=== PATIENT | male | born 1960 | race Caucasian/White ===

== ENCOUNTER → 2019-02-23 11:13 | Outpatient (CLI) | payer OTHER, SELFPAY ==
--- NOTE | 2019-02-23 | DI.MRI.S_ITS ---
PROCEDURE: MR LUMBAR SPINE WO CON INDICATIONS: LOW BACK PAIN. BILATERAL LEG RADICULAR PAIN TECHNIQUE: Noncontrast sagittal T1 spin echo and T2 fast echo, sagittal STIR, axial T1 and T2 fast spin echo through the lumbar spine. In cases with scoliosis, additional coronal T2 fast spin echo may be performed. COMPARISON: None. FINDINGS: Image quality: Excellent. Alignment and Curvature: There is grade 1 retrolisthesis of L1 on L2. Bone Marrow: Marrow is of normal overall signal. Chronic appearing mild anterior wedge compression deformity at L1 level is seen with up to 15-20% loss of L1 vertebral body height anteriorly. No acute vertebral body compression fractures. Spinal Cord: Conus medullaris terminates at the T12-L1 level. Visualized cord demonstrates normal signal and size. Paraspinous Soft Tissues: No paravertebral masses. L1-L2: Decreased intervertebral disc space and degenerative endplate changes are seen. There is diffuse disc bulge and bilateral facet arthrosis. Mild central canal stenosis and mild right-sided neuroforaminal narrowing is seen. L2-L3: There is decreased intervertebral disc space and degenerative endplate changes. Broad-based disc bulge and bilateral facet arthrosis is seen causing moderate central canal stenosis and mild right worse than left bilateral neuroforaminal narrowing. L3-L4: Degenerative endplate changes and decreased intervertebral disc space is seen. Broad-based disc bulge and bilateral facet arthrosis is noted with moderate central canal stenosis, severe left-sided neural foraminal narrowing and moderate right-sided neural foramina narrowing. There is likely compression of exiting left L3 nerve root. L4-L5: Broad-based disc bulge is seen with bilateral facet arthrosis and hypertrophy of ligamentum flavum. Mild to moderate central canal stenosis and left worse than right bilateral neuroforaminal narrowing is seen. There is likely mild compression of the exiting left L4 nerve root. L5-S1: Diffuse disc bulge and bilateral facet arthrosis is seen with mild central canal stenosis and mild left-sided neuroforaminal narrowing. There is mild compression of exiting left L5 nerve root. IMPRESSION: 1. Chronic appearing mild anterior wedge compression deformity at L1 level. No acute compression fracture. No marrow edema. Grade 1 retrolisthesis of L1 on L2. 2. Degenerative disc bulge and bilateral facet arthrosis throughout lumbar spine causing moderate to severe central canal stenosis and left worse than right bilateral neuroforaminal narrowing as described in detail above. Dictated by: Ricco Breaux M.D. on 02/23/2019 at 11:58 Approved by: Ricco Breaux M.D. on 02/23/2019 at 12:06
== END ==
PROVIDERS: PCP Family Medicine; Visit Provider Physician Assistant Surgical
DX: M54.5 Low back pain (principal); M79.605 Pain in left leg; M79.604 Pain in right leg; G95.29 Other cord compression; M47.816 Spondylosis without myelopathy or radiculopathy, lumbar region; M48.061 Spinal stenosis, lumbar region without neurogenic claudication; M48.07 Spinal stenosis, lumbosacral region
CPT/HCPCS: 72148

== ENCOUNTER 2019-11-04 21:36 | Inpatient (IN) | payer OTHER, SELFPAY ==
[2019-11-04 21:36] VITALS: BP 122/75; PULSE 109; RESP 28; TEMP 38.3; O2SAT 98; BMI 33.0
--- NOTE | 2019-11-04 21:50 | ED_ITS ---
HPI - Sepsis General Chief Complaint: Skin/Abscess/Foreign Body Mode of arrival: Ambulatory Source: patient Limitations: no limitations Evaluation Sepsis Infection Criteria Present: Suspected New Infection Associated Symptoms: fever, cough and shortness of breath Context: recent surgery/procedure Narrative: 59-year-old male former smoker with history of diabetes and hypertension presents with a chief complaint of 3 days of gradually worsening left lower extremity pain and swelling and now fever as high as 102, weakness and cough. Patient is nauseated but denies any vomiting. He has had no diarrhea or urinary complaints such as dysuria, frequency or urgency. He denies any recent travel. He had a prolonged hospitalization secondary to complications of a left hip surgery performed at the [facility]. He had hardware removed on August 10, 2019 in preparation for a planned L YVONNE. Patient started feeling pain at the end of July and presented to ED and had imaging which noted intertrochanteric femur fracture Review of Systems Constitutional Constitutional: Reports chills, Reports fatigue, Reports fever(s), Denies frequent falls, Denies lethargy and Denies weakness Eyes Eyes: Denies change in vision, Denies eye discharge, Denies irritation and Denies loss of vision ENT Ears, Nose, Mouth, and Throat: Denies change in voice, Denies dizziness, Denies neck pain, Denies sore throat and Denies throat swelling Cardiovascular Cardiovascular: Denies chest pain, Denies irregular heart rhythm, Denies lightheadedness, Denies palpitations, Reports dyspnea, Denies dyspnea on exertion and Denies orthopnea Respiratory Respiratory: Reports cough, Reports dyspnea, Denies dyspnea on exertion and Denies wheezing Gastrointestinal Gastrointestinal: Denies abdominal pain, Denies change in bowel habits, Denies diarrhea, Denies nausea and Denies vomiting Genitourinary Genitourinary: Denies hematuria, Denies flank pain, Denies urinary incontinence and Denies urinary urgency Musculoskeletal Musculoskeletal: Denies back pain, Denies muscle weakness, Denies neck pain, Denies numbness and Denies tingling Integumentary/Breasts Skin/Breast: Denies pruritus, Reports erythema, Denies rash, Reports skin pain, Reports skin swelling and Denies wounds Neurologic Neurologic: Denies behavioral changes, Denies confusion, Denies dizziness, Denies frequent falls, Denies loss of vision, Denies numbness, Denies tingling and Denies weakness Psychiatric Psychiatric: Denies anxiety, Denies behavioral changes, Denies confusion, Denies depression, Denies homicidal ideation and Denies suicidal ideation Endocrine Endocrine: Reports fatigue, Denies flushing and Denies palpitations Hematologic/Lymphatic Hematologic/Lymphatic: Denies easy bruising Allergic/Immunologic Allergic/Immunologic: Denies urticaria, Denies throat swelling and Denies wheezing Patient History Medical History Diabetes type 2, uncontrolled (Acute) Hemorrhoids (Acute) Hypertension (Acute) Left femoral shaft fracture (Acute) Surgical History History of hip replacement (Acute) History of open reduction and internal fixation (ORIF) procedure (Acute) Status post knee surgery Family History Father Congestive heart failure Mother Cancer Brother No significant medical problems Social History Smoking Status: Former smoker Smoking Status: Former smoker Exam Narrative Exam Narrative: GENERAL: [59] year old patient appears stated age. Well-nourish ed, well-developed patient, in moderate distress, clearly not feeling well, and pain anxious and tearful HEAD: Atraumatic. Normocephalic. EYES: Pupils equal round and reactive. Extraocular motions intact. No scleral icterus. No injection or drainage. ENT: Nose without bleeding, purulent drainage. Throat without erythema, tonsillar hypertrophy or exudate. Airway patent. NECK: Trachea midline. Non tender CARDIOVASCULAR: Tachycardic right rhythm without murmurs, gallops, or rubs. RESPIRATORY: Clear to auscultation. Breath sounds equal bilaterally. No wheezes, rales, or rhonchi. GASTROINTESTINAL: Abdomen soft, non-tender, nondistended. EXTREMITIES: Left lower extremity erythema and warmth, circumferential below the knee with what appears to be lymphangitis extending proximally along the medial thigh. Incision is clean, dry and intact. BACK: Nontender without deformity or crepitance. No flank tenderness. NEURO: AOx3. SKIN: No rash or erythema of visible areas other than that which is mentioned above Initial Vital Signs Initial Vital Signs: Vital Signs Temperature 101.0 F H 11/04/19 21:36 Pulse Rate 109 H 11/04/19 21:36 Respiratory Rate 28 H 11/04/19 21:36 Blood Pressure 122/75 11/04/19 21:36 Pulse Oximetry 98 11/04/19 21:36 Course Orders Ordered: ED Orders 11/04/19 21:51 US periph venous low extrem lt Stat XR chest 1V Stat 11/04/19 22:00 Blood Culture Stat C-Reactive Protein Quant Stat Complete Blood Count AUTO DIFF Stat Comprehensive Metabolic Panel Stat D Dimer Stat Erythrocyte Sedimentation Rate Stat Ferritin Stat Lactate (Lactic Acid) Stat Lactate Dehydrogenase Stat NT-proBNP (BNP-Adult 18+) Stat Procalcitonin Stat Troponin & CK Cardiac Panel Stat 11/04/19 23:07 CT angio chest PE protocol Stat 11/04/19 23:26 CT abdomen pelvis w con Stat 11/05/19 EC echo doppler complete Routine 11/05/19 00:28 EKG-12 Lead Stat 11/05/19 00:35 UA Complete [Urinalysis and Microscopic] Stat 11/05/19 00:37 Magnesium Routine 11/05/19 00:42 Prothrombin Time INR Routine 11/05/19 00:44 Consult to Dietitian, Adult Routine Consult to Occupational Therapy Evaluate & Treat 11/05/19 00:47 Consult to Physical Therapy Evaluate & Treat 11/05/19 00:51 Consult to Respiratory Therapy Evaluate & Treat 11/05/19 00:52 Partial Thromboplastin Time Routine 11/05/19 05:00 Basic Metabolic Panel Routine Complete Blood Count AUTO DIFF Routine Acetaminophen (Tylenol) 650 mg PO Q6HR PRN PRN Reason: Fever/Mild Pain (1-3) Bisacodyl (Dulcolax) 10 mg PO DAILY PRN PRN Reason: Constipation Dextrose (D50w) 25 gm IV PRN PRN; Protocol PRN Reason: Hypoglycemia Enoxaparin Sodium (Lovenox) 105 mg 1 mg/kg (105 mg) SUBCUT NOW ONE Stop: 11/05/19 11:01 Levofloxacin (Levaquin) 750 mg in 150 mls @ 100 mls/hr IV NOW KAREN Last Infusion: 11/05/19 00:12 Dose: 0 mls/hr Documented by: Admin: 11/04/19 22:03 Dose: 100 mls/hr Documented by: HOLLY Sodium Chloride (Normal Saline 0.9%) 1,000 mls @ 50 mls/hr IV CONT KAREN Levofloxacin (Levaquin) 750 mg in 150 mls @ 100 mls/hr IV Q24H KAREN Vancomycin HCl/Dextrose (Vancomycin) 2,000 mg in 400 mls @ 200 mls/hr IV Q12H KAREN Insulin Aspart (Novolog Flexpen) 0 unit SUBCUT ACHS KAREN; Protocol Naloxone HCl (Narcan) 0.2 mg IV Q2MIN PRN PRN Reason: Opiate Reversal Ondansetron HCl (Zofran) 4 mg IV Q8HR PRN PRN Reason: Nausea And Vomiting Discontinued Medications Enoxaparin Sodium (Lovenox) 105 mg 1 mg/kg (105 mg) SUBCUT NOW ONE Stop: 11/05/19 00:07 Last Admin: 11/05/19 00:49 Dose: 105 mg Documented by: HOLLY Lactated Ringer's (Lactated Ringers) 3,135 mls @ 1,045 mls/hr 30 ml/kg infuse over 3 hr (3135 ml) IV NOW ONE Stop: 11/05/19 00:50 Last Admin: 11/04/19 22:01 Dose: 1,045 mls/hr Documented by: HOLLY Vancomycin HCl/Dextrose (Vancomycin) 2,000 mg in 400 mls @ 200 mls/hr IV NOW ONE Stop: 11/04/19 23:53 Last Admin: 11/05/19 00:13 Dose: 200 mls/hr Documented by: HOLLY Vancomycin HCl (Vancomycin Per Pharmacy) 1 request MISC NOW ONE Stop: 11/05/19 00:54 Vital Signs Vital signs: Vital Signs - 8 hr 11/04/19 21:36 11/04/19 22:40 11/05/19 00:21 Temperature 101.0 F H Pulse Rate 109 H 104 H 108 H Respiratory Rate 28 H 24 26 H Blood Pressure 122/75 Blood Pressure [Right Arm] 157/85 H 171/84 H Pulse Oximetry 98 96 98 MDM - Sepsis Differential Diagnosis Current stage of sepsis: sepsis Possible source sepsis: skin/soft tissue Differential diagnosis: acute pulmonary embolism Fluid responsiveness: fluid responsive Lab Data Result diagrams: 11/04/19 22:00 11/04/19 22:00 Labs: Lab Results 11/04/19 11/04/19 11/04/19 Range/Units 22:00 22:00 22:00 WBC 22.4 H (4.5-11.0) X10^3/uL RBC 4.33 L (4.5-5.9) X10^6/uL Hgb 12.9 L (13.5-17.5) g/dL Hct 37.5 L (41-53) % MCV 86.7 (80-100) fL MCH 29.7 (26-34) PG MCHC 34.3 (30-36) % RDW 12.7 (11.6-14.8) % Plt Count 317 (150-400) X10^3/uL Neut % (Auto) 91.5 H (50-75) % Lymph % (Auto) 4.7 L (25-40) % [place] % (Auto) 3.6 (3-14) % Eos % (Auto) 0.0 L (2-4) % Baso % (Auto) 0.2 (0-2) % Neut # (Auto) 42621 H (7885-3523) /uL Lymph # (Auto) 1100 (1974-2134) /uL [place] # (Auto) 800 (0-900) /uL Eos # (Auto) 0 (0-450) /uL Baso # (Auto) 0 (0-100) /uL ESR 31 H (0-15) MM/HR D-Dimer 860 H (<230) ng/mL Sodium (137-145) mmol/L Potassium (3.4-5.1) mmol/L Chloride (98-107) mmol/L Carbon Dioxide (22-32) mmol/L BUN (9-20) mg/dL Creatinine (0.66-1.25) mg/dL Estimated GFR (>60) mL/min BUN/Creatinine Ratio (6-22) Glucose (70-100) mg/dL Lactate (0.7-2.1) mmol/L Calcium (8.4-10.2) mg/dL Ferritin (18-464) ng/mL Total Bilirubin (0.2-1.3) mg/dL AST (17-59) IU/L ALT (<50) IU/L Alkaline Phosphatase (38-126) U/L Lactate Dehydrogenase (313-618) U/L Total Creatine Kinase (55-170) U/L CK-MB (CK-2) (<2.37) ng/mL CK-MB (CK-2) Rel Index (1.5-5.0) % Troponin I (0.01-0.034) ng/mL C-Reactive Protein (<1.0) mg/dL NT-Pro-B Natriuret Pep (<125) pg/mL Total Protein (6.3-8.2) g/dL Albumin (3.5-5.0) g/dL Globulin (1.7-4.1) g/dL Albumin/Globulin Ratio (1.0-2.8) Procalcitonin 0.36 (<0.5) ng/mL Urine Color Urine Appearance Urine pH (4.5-8.0) Ur Specific [place] (1.000-1.035) Urine Protein (Negative) Urine Glucose (UA) (Negative) g/dL Urine Ketones (NEGATIVE) Urine Occult Blood (Negative) Urine Nitrate (Negative) Urine Bilirubin (NEGATIVE) Urine Urobilinogen (0.2) E.U./dL Ur Leukocyte Esterase (NEGATIVE) Urine RBC (0-5/HPF) Urine WBC (0-5/HPF) Ur Squamous Epith Cells (0-5/HPF) Urine Bacteria (None) Ur Culture Indicated? 11/04/19 11/04/19 11/04/19 Range/Units 22:00 22:00 22:00 WBC (4.5-11.0) X10^3/uL RBC (4.5-5.9) X10^6/uL Hgb (13.5-17.5) g/dL Hct (41-53) % MCV (80-100) fL MCH (26-34) PG MCHC (30-36) % RDW (11.6-14.8) % Plt Count (150-400) X10^3/uL Neut % (Auto) (50-75) % Lymph % (Auto) (25-40) % [place] % (Auto) (3-14) % Eos % (Auto) (2-4) % Baso % (Auto) (0-2) % Neut # (Auto) (6427-6806) /uL Lymph # (Auto) (0961-7105) /uL [place] # (Auto) (0-900) /uL Eos # (Auto) (0-450) /uL Baso # (Auto) (0-100) /uL ESR (0-15) MM/HR D-Dimer (<230) ng/mL Sodium 129 L (137-145) mmol/L Potassium 4.7 (3.4-5.1) mmol/L Chloride 94 L (98-107) mmol/L Carbon Dioxide 24 (22-32) mmol/L BUN 14 (9-20) mg/dL Creatinine 0.76 (0.66-1.25) mg/dL Estimated GFR > 60.0 (>60) mL/min BUN/Creatinine Ratio 18.4 (6-22) Glucose 289 H (70-100) mg/dL Lactate 1.8 (0.7-2.1) mmol/L Calcium 9.1 (8.4-10.2) mg/dL Ferritin 172 (18-464) ng/mL Total Bilirubin 0.6 (0.2-1.3) mg/dL AST 22 (17-59) IU/L ALT 17 (<50) IU/L Alkaline Phosphatase 80 (38-126) U/L Lactate Dehydrogenase 393 (313-618) U/L Total Creatine Kinase 159 (55-170) U/L CK-MB (CK-2) 2.34 (<2.37) ng/mL CK-MB (CK-2) Rel Index 1.5 (1.5-5.0) % Troponin I 0.023 (0.01-0.034) ng/mL C-Reactive Protein 23.9 H (<1.0) mg/dL NT-Pro-B Natriuret Pep 1050 H (<125) pg/mL Total Protein 7.6 (6.3-8.2) g/dL Albumin 4.2 (3.5-5.0) g/dL Globulin 3.4 (1.7-4.1) g/dL Albumin/Globulin Ratio 1.2 (1.0-2.8) Procalcitonin (<0.5) ng/mL Urine Color Urine Appearance Urine pH (4.5-8.0) Ur Specific [place] (1.000-1.035) Urine Protein (Negative) Urine Glucose (UA) (Negative) g/dL Urine Ketones (NEGATIVE) Urine Occult Blood (Negative) Urine Nitrate (Negative) Urine Bilirubin (NEGATIVE) Urine Urobilinogen (0.2) E.U./dL Ur Leukocyte Esterase (NEGATIVE) Urine RBC (0-5/HPF) Urine WBC (0-5/HPF) Ur Squamous Epith Cells (0-5/HPF) Urine Bacteria (None) Ur Culture Indicated? 11/05/19 Range/Units 00:35 WBC (4.5-11.0) X10^3/uL RBC (4.5-5.9) X10^6/uL Hgb (13.5-17.5) g/dL Hct (41-53) % MCV (80-100) fL MCH (26-34) PG MCHC (30-36) % RDW (11.6-14.8) % Plt Count (150-400) X10^3/uL Neut % (Auto) (50-75) % Lymph % (Auto) (25-40) % [place] % (Auto) (3-14) % Eos % (Auto) (2-4) % Baso % (Auto) (0-2) % Neut # (Auto) (6250-7705) /uL Lymph # (Auto) (3929-1059) /uL [place] # (Auto) (0-900) /uL Eos # (Auto) (0-450) /uL Baso # (Auto) (0-100) /uL ESR (0-15) MM/HR D-Dimer (<230) ng/mL Sodium (137-145) mmol/L Potassium (3.4-5.1) mmol/L Chloride (98-107) mmol/L Carbon Dioxide (22-32) mmol/L BUN (9-20) mg/dL Creatinine (0.66-1.25) mg/dL Estimated GFR (>60) mL/min BUN/Creatinine Ratio (6-22) Glucose (70-100) mg/dL Lactate (0.7-2.1) mmol/L Calcium (8.4-10.2) mg/dL Ferritin (18-464) ng/mL Total Bilirubin (0.2-1.3) mg/dL AST (17-59) IU/L ALT (<50) IU/L Alkaline Phosphatase (38-126) U/L Lactate Dehydrogenase (313-618) U/L Total Creatine Kinase (55-170) U/L CK-MB (CK-2) (<2.37) ng/mL CK-MB (CK-2) Rel Index (1.5-5.0) % Troponin I (0.01-0.034) ng/mL C-Reactive Protein (<1.0) mg/dL NT-Pro-B Natriuret Pep (<125) pg/mL Total Protein (6.3-8.2) g/dL Albumin (3.5-5.0) g/dL Globulin (1.7-4.1) g/dL Albumin/Globulin Ratio (1.0-2.8) Procalcitonin (<0.5) ng/mL Urine Color Yellow Urine Appearance Clear Urine pH 7.5 (4.5-8.0) Ur Specific [place] 1.010 (1.000-1.035) Urine Protein 1+ H (Negative) Urine Glucose (UA) 1+ H (Negative) g/dL Urine Ketones Trace H (NEGATIVE) Urine Occult Blood Trace-lysed (Negative) Urine Nitrate Negative (Negative) Urine Bilirubin Negative (NEGATIVE) Urine Urobilinogen 0.2 (0.2) E.U./dL Ur Leukocyte Esterase Negative (NEGATIVE) Urine RBC None seen (0-5/HPF) Urine WBC None seen (0-5/HPF) Ur Squamous Epith Cells 0-1 /hpf (0-5/HPF) Urine Bacteria None seen (None) Ur Culture Indicated? Cult not indicated Imaging Data CT scan - chest: Radiologist's Impression: Acute R lower PE without strain CT scan - abdomen/pelvis: Radiologist's Impression: No acute findings ECG Data Attestation: I personally reviewed and interpreted this ECG as follows: Interpretation: Sinus tachycardia, no evidence of strain. NO ischemia or ectopy. [facility] Narrative Medical decision making narrative: 59M former smoker and diabetic with LLE pain, swelling, redness and hip surgery in August with SOB and fever. DVT ruled out, treated with sepsis protocol. PE suspected given tachycardia, dyspnea, recent surgery and elevated DDimer. No evidence of strain on imaging, EKG, or biochemically. Not hypoxic or hypotensive, not a candidate for thrombectomy. Patient admitted for ongoing treatment of PE and cellulitis with sepsis. Discharge Plan Departure Patient Disposition: Admitted As Inpatient Clinical Impression: Acute pulmonary embolism, Cellulitis, Sepsis Admit Date/Time: 11/05/19 00:47 Admit Provider: Giorgi Auguste
--- NOTE | 2019-11-04 21:51 | DI.RAD.S_ITS ---
PROCEDURE: XR CHEST 1V INDICATIONS: cough, SOB TECHNIQUE: One view of the chest was acquired. COMPARISON: [facility], CT, CT ANGIO CHEST PE PROTOCOL, 11/04/2019, 23:06. FINDINGS: Surgical changes and devices: None. Lungs and pleura: Lungs are clear. No pleural effusions or pneumothorax. Mediastinum: Mediastinal contours appear normal. Heart size is normal. Bones and chest wall: No suspicious bony lesions. Overlying soft tissues appear unremarkable. IMPRESSION: No acute cardiopulmonary disease process. Dictated by: Dunia Baker MD, PhD on 11/05/2019 at 7:59 Approved by: Dunia Baker MD, PhD on 11/05/2019 at 8:03
--- NOTE | 2019-11-04 21:51 | DI.US.S_ITS ---
PROCEDURE: US PERIPH VENOUS LOW EXTREM LT INDICATIONS: SEVERE PAIN, REDNESS TECHNIQUE: Real-time imaging, as well as color and pulse Doppler interrogation, were performed of the lower extremity deep veins from the inguinal ligament to the popliteal fossa. COMPARISON: None. FINDINGS: The common femoral, femoral and popliteal veins are normally compressible, and free of intraluminal thrombus. Color and pulse Doppler demonstrate normal phasic intraluminal flow. There is normal augmentation response to distal compression maneuver. IMPRESSION: No evidence of deep vein thrombosis involving the left lower extremity. Dictated by: Dunia Baker MD, PhD on 11/05/2019 at 7:56 Approved by: Dunia Baker MD, PhD on 11/05/2019 at 7:57
[2019-11-04] MEDS: LACTATED RINGERS 1045 ML IV (22:01)
[2019-11-04] MEDS: levoFLOXacin 750 MG/150 ML PIGGYBACK 100 MG IV (22:03)
[2019-11-04 22:36] LABS: Add Manual Diff / Slide Review NO; Basophils Absolute Auto 0 /uL (0-100); Basophils Percent Auto 0.2 % (0-2); Eosinophils Absolute Auto 0 /uL (0-450); Hematocrit 37.5 % (41-53); Hemoglobin 12.9 g/dL (13.5-17.5); Lymphocytes Absolute Auto 1100 /uL (1100-4500); Lymphocytes Percent Auto 4.7 % (25-40); Mean Corpuscular HGB Conc 34.3 % (30-36); Mean Corpuscular Hemoglobin 29.7 PG (26-34); Mean Corpuscular Volume 86.7 fL (80-100); Monocytes Absolute Auto 800 /uL (0-900); Monocytes Percent Auto 3.6 % (3-14); Neutrophils Absolute Auto 20500 /uL (1500-7000); Neutrophils Percent Auto 91.5 % (50-75); Platelet Count 317 X10^3/uL (150-400); Red Blood Cell Count 4.33 X10^6/uL (4.5-5.9); Red Cell Distribution Width 12.7 % (11.6-14.8); White Blood Cell Count 22.4 X10^3/uL (4.5-11.0)
--- NOTE | 2019-11-04 22:39 | PC.NURSE ---
[id number] US in room.
--- NOTE | 2019-11-04 22:39 | PC.NURSE ---
[id number] Lab here to draw 2nd blood culture
[2019-11-04 22:40] VITALS: BP 157/85; PULSE 104; RESP 24; O2SAT 96
[2019-11-04 22:41] LABS: D Dimer 860 ng/mL (<230)
[2019-11-04 22:42] LABS: Lactate (Lactic Acid) 1.8 mmol/L (0.7-2.1)
[2019-11-04 22:45] LABS: Alanine Aminotransferase 17 IU/L (<50); Albumin 4.2 g/dL (3.5-5.0); Albumin Globulin Ratio 1.2 (1.0-2.8); Alkaline Phosphatase 80 U/L (38-126); Aspartate Aminotransferase 22 IU/L (17-59); BUN Creatinine Ratio 18.4 (6-22); Bilirubin Total 0.6 mg/dL (0.2-1.3); Blood Urea Nitrogen 14 mg/dL (9-20); Calcium 9.1 mg/dL (8.4-10.2); Carbon Dioxide 24 mmol/L (22-32); Chloride 94 mmol/L (98-107); Estimated Glomerular Filt Rate > 60.0 mL/min (>60); Globulin 3.4 g/dL (1.7-4.1); Glucose 289 mg/dL (70-100); HEMOLYSIS < 15 (0-50); Lactate Dehydrogenase 393 U/L (313-618); Potassium 4.7 mmol/L (3.4-5.1); Sodium 129 mmol/L (137-145); Total Protein 7.6 g/dL (6.3-8.2)
--- NOTE | 2019-11-04 22:45 | PC.NURSE ---
IV antibiotics started at 221
[2019-11-04 22:54] LABS: Erythrocyte Sedimentation Rate 31 MM/HR (0-15)
[2019-11-04 22:56] LABS: C-Reactive Protein Quant 23.9 mg/dL (<1.0)
[2019-11-04 22:57] LABS: Procalcitonin 0.36 ng/mL (<0.5)
--- NOTE | 2019-11-04 23:07 | DI.CT.S_ITS ---
PROCEDURE: CT ANGIO CHEST PE PROTOCOL INDICATIONS: SOB, tachy, cough, critical DDimer, recent surgery TECHNIQUE: After the administration of intravenous contrast, 2 mm thick sections acquired from the pulmonary apices to the posterior costophrenic angles. 3-dimensional maximum intensity projection (MIP) coronal and sagittal reformats were then acquired through the thorax. For radiation dose reduction, the following was used: automated exposure control, adjustment of mA and/or kV according to patient size. COMPARISON: None. FINDINGS: Image quality: Excellent. Pulmonary arteries: Filling defect noted in right lower lobe segmental and subsegmental pulmonary artery. Lungs and pleura: Lungs are clear. No pleural effusions or pneumothorax. Central and peripheral airways are patent. Mediastinum: Heart size is normal, without pericardial effusion. Atherosclerotic calcifications noted in the coronary vasculature. No mediastinal or hilar adenopathy. Thoracic aorta is normal in caliber and enhancement. Esophagus is normal in caliber, without hiatal hernia. Bones and chest wall: No suspicious bony lesions. Ribs and thoracic spine appear intact throughout. Thyroid gland is within normal limits.. No axillary or supraclavicular adenopathy. Abdomen: 1.3 cm hypoattenuating lesion noted in the right lobe liver which may represent small cyst or hemangioma. Visualized upper abdominal solid organs otherwise appear normal in the early arterial phase of enhancement. IMPRESSION: 1. Abnormal study demonstrating right lower lobe pulmonary embolus. 2. Coronary vasculature atherosclerosis. Dictated by: Dunia Baker MD, PhD on 11/05/2019 at 8:06 Approved by: Dunia Baker MD, PhD on 11/05/2019 at 8:11
[2019-11-04 23:17] LABS: Ferritin 172 ng/mL (18-464)
--- NOTE | 2019-11-04 23:26 | DI.CT.S_ITS ---
PROCEDURE: CT ABDOMEN PELVIS W CON INDICATIONS: severe pain in lower pelvis / hips TECHNIQUE: After the administration of intravenous contrast, 5 mm thick sections acquired from the diaphragm to the symphysis. 5 mm coronal and sagittal reformats were acquired. For radiation dose reduction, the following was used: automated exposure control, adjustment of mA and/or kV according to patient size. COMPARISON: [facility], MR, MR LUMBAR SPINE WO CON, 02/23/2019, 12:17. FINDINGS: Image quality: Excellent. ABDOMEN: Lung bases: Lung bases are clear. Heart size is normal. Coronary artery calcifications are present. Solid organs: Mild hepatic steatosis. Scattered subcentimeter hepatic hypodensities, too small to characterize accurately however statistically small cysts or hemangiomas. Gallbladder negative. Biliary system is non dilated. Pancreas enhances normally. Spleen is normal in size and enhancement. No adrenal nodules. Presumed bilateral renal cysts although some of these are technically too small to characterize accurately. No hydronephrosis. Peritoneum and bowel: Dependent 1.2 cm focus in the fundus of the stomach on image 19/11 is indeterminate possibly debris although if clinically indicated, endoscopic confirmation could be considered to exclude soft tissue lesion (or repeat imaging). No definite bowel wall thickening No free fluid or air. Normal appendix. Nodes and vessels: Numerous shotty subcentimeter retroperitoneal lymph nodes, and left common iliac and left external iliac lymph nodes with prominent fatty hilum. Clinical significance is unknown. Some of these appear be present on the prior lumbar spine MRI dated 02/23/19 however the pelvic lymph nodes were not included on the prior study exam field of view. Aorta and inferior vena cava are normal in size. Scattered vascular calcifications seen in the aorta. Miscellaneous: No ventral hernias. PELVIS: Genitourinary: Bladder wall thickness is normal. Small bilateral fat-containing inguinal hernias, left larger than right. Status post left hip arthroplasty. The hardware appears grossly intact and expected postoperative alignment. Fatty infiltration and some atrophy of the proximal left thigh musculature. Bilateral hip subcutaneous edema. Diffuse lumbar spondylosis and facet arthropathy. No compression fracture seen. IMPRESSION: Numerous retroperitoneal and left pelvic enlarged lymph nodes with fatty hilum appearance, not mentioned in the preliminary study interpretation. This finding could be chronic although technically unknown acuity and clinical significance. Please correlate clinically. Possible focal debris within the dependent gastric fundus although please see discussion above. No acute abnormality identified Presumed hepatic and renal cysts Additional chronic and incidental findings as detailed above Dictated by: Brian Christian M.D. on 11/05/2019 at 8:19 Approved by: Brian Christian M.D. on 11/05/2019 at 8:31
--- NOTE | 2019-11-04 23:57 | PC.NURSE ---
patient attempted to use urinal in bed. unable to urinate laying down. Stood at edge of by with notable dyspnea and tachicardia, RR44, HR125. Pt recovered in a few minutes to baseline at 106HR, RR22
[2019-11-05] VITALS (11 sets, daily range): BP systolic 122–171; BP diastolic 66–91; PULSE 82–108; RESP 18–26; TEMP 36.5–38.1; O2SAT 96–99; BMI 33.0
--- NOTE | 2019-11-05 | DI.ECHO.S_ITS ---
[facility] +---------+ [facility] +---------+ : : [address] : : : : [id number] : : : : Phone: [phone] Echocardiogram Report + + :Name: MALI WOMACK Study Date: 11/05/2019 Height: 70 in : :[facility] Weight: 232 lb : : Gender: Other BSA: 2.2 m2 : :: 1960 Age: 59 yrs BP: 140/73 mmHg: :Reason For Study: Rule out Covid-19, Pulmonary Embolism : :Ordering Physician: [facility] : :Hospitalist Performed By: Leah Mansfield : :Referring: [facility] Hospitalist : + + Interpretation Summary 1) Mildly increased left ventricular thickness (concentric) with size and mildly reduced systolic function (EF 45-50%). 2) Normal right ventricular size and function. 3) No significant valvular abnormalities. 4) No prior Echo available for comparison. Procedure: A two-dimensional transthoracic echocardiogram with color flow and Doppler was performed. The study quality was technically adequate. There is no prior echocardiogram noted for this patient. The patient was in sinus tachycardia with heart rates between 90-115 bpm during the exam. Left Ventricle: The left ventricle is normal in size. Left ventricular wall thickness is mildly increased. The ejection fraction is estimated to be 45- 50%. Left ventricular systolic function is mildly reduced. There is mild global hypokinesis of the left ventricle. Right Ventricle: The right ventricle is normal in size and function. Atria: The left atrium is borderline dilated. The right atrium is normal in size. There is no Doppler evidence for an interatrial shunt. Mitral Valve: The mitral valve leaflets appear mildly thickened, but open well. There is mild mitral annular calcification. There is trace mitral regurgitation. Aortic Valve: The aortic valve is trileaflet. The aortic valve opens well. There is no aortic valve stenosis. No aortic regurgitation is present. Tricuspid Valve: The tricuspid valve is normal in structure and function. There is a trace or physiologic amount of tricuspid regurgitation. Pulmonary artery pressures cannot be estimated because of the lack of a measurable TR jet velocity. Pulmonic Valve: The pulmonic valve is not well seen, but is grossly normal. There is mild pulmonic regurgitation. Great Vessels: The aortic root is normal size. The ascending aorta is at the upper limits of normal in size. The aortic arch is mildly enlarged. The IVC is of normal diameter and collapses less than 50% with a sniff. This suggests a right atrial pressure of 8 mm Hg. Pericardium/ Pleura There is no pericardial effusion. There is no pleural effusion. MMode/2D Measurements & Calculations LVIDd: 5.5 cm LVOT diam: 2.4 cm LVIDs: 4.1 cm Ao root diam: 3.4 cm FS: 26.2 % asc Aorta Diam: 3.5 cm EPSS: 1.4 cm Ao Arch Diam (Prox Trans): 3.9 cm IVSd: 1.2 cm LVPWd: 1.2 cm LV chowdhury. diameter/BSA (cm/m^2): 2.5 LV sys. diameter/BSA (cm/m^2): 1.8 LA A2 area: 22.7 cm2 RA long axis: 4.8 cm LA A4 area: 20.5 cm2 RA area: 18.2 cm2 LA length (vol): 5.3 cm RA vol: 59.1 ml LA vol: 74.6 ml RA : 26.6 ml/m2 LA vol index: 33.6 ml/m2 RVD1 (basal): 3.8 cm TAPSE: 2.5 cm Doppler Measurements & Calculations Ao V2 max: 167.5 cm/sec LVOT Max Toribio: 103.4 cm/sec Ao V2 mean: 116.6 cm/sec LV V1 max P.3 mmHg Ao max P.2 mmHg LV V1 VTI: 20.6 cm Ao mean P.3 mmHg TOM(I,D): 3.3 cm2 Ao V2 VTI: 28.2 cm TOM(V,D): 2.8 cm2 sev ratio: 0.73 TOM indexed to BSA (cm^2/m^2): 1.5 MV E max toribio: 101.2 cm/sec PA V2 max: 103.4 cm/sec MV A max toribio: 99.7 cm/sec PA V2 mean: 73.3 cm/sec MV E/A: 1.0 PA mean P.4 mmHg Med Peak E' Toribio: 8.7 cm/sec PA pr(Accel): 58.4 mmHg E/E' med: 11.6 Lat Peak E' Toribio: 13.5 cm/sec E/E' lat: 7.5 E/e' average: 9.6 MV dec time: 0.20 sec SV(LVOT): 93.0 ml Reading Physician:12:22 PM
[2019-11-05 00:08] LABS: Creatine Kinase 159 U/L (55-170)
[2019-11-05] MEDS: VANCOMYCIN 2,000 MG/400 ML PIGGYBACK 200 MG IV (00:13)
[2019-11-05 00:21] LABS: NT-proBNP (BNP-Adult 18+) 1050 pg/mL (<125); Troponin I 0.023 ng/mL (0.01-0.034)
[2019-11-05 00:23] LABS: CKMB % Relative Index 1.5 % (1.5-5.0); Creatine Kinase MB 2.34 ng/mL (<2.37)
--- NOTE | 2019-11-05 00:37 | PC.NURSE ---
tolerated catheter placment well. states he feel better minutes after placment for urinairy retention.
[2019-11-05 00:39] LABS: Bacteria Urine None Seen; RBC Urine None Seen (0-5/HPF); WBC Urine None Seen (0-5/HPF)
[2019-11-05 00:41] LABS: Appearance Urine UA CLEAR; Bilirubin Urine UA NEGATIVE (NEGATIVE); Color Urine UA YELLOW; Glucose Urine UA 1+ g/dL (Negative); Ketones Urine UA TRACE (NEGATIVE); Leukocyte Esterase Urine UA NEGATIVE (NEGATIVE); Nitrite Urine UA NEGATIVE (Negative); Occult Blood Urine UA TRACE-LYSED (Negative); Protein Urine UA 1+ (Negative); Urobilinogen Urine UA 0.2 E.U./dL (0.2); pH Urine UA 7.5 (4.5-8.0)
[2019-11-05 00:47] LABS: Culture Indicated Urine Cult Not Indicated; Squamous Epithelial Cell Urine 0-1 /HPF (0-5/HPF)
[2019-11-05] MEDS: ENOXAPARIN 100 MG/ML SYRINGE 105 MG SUBCUT (00:49)
--- NOTE | 2019-11-05 00:56 | P.HP_ITS ---
History of Present Illness History of Present Illness Date Patient Seen: 11/05/19 Time Patient Seen: 01:45 Chief complaint: ankles swelling,can't walk/ cough,SOB,fever Narrative: Mr. Rom Finch is a 59-year-old male with a history significant for insulin-dependent diabetes type 2, hypertension, recent left hip surgery [facility]2019 who presents to the hospital with worsening left lower extremity pain. The patient develops redness swelling on the left lower leg that has been been progressive with redness and swelling for 3 days. The patient reports that since discharge from the hospital he had been worked with PT until October and since then he has been on his own with PT discontinued related to COVID-19 restrictions. Patient states he has been weight-bearing but could no longer do so for the last 3 days secondary to pain. During the same time the patient reports developing associated bifrontal headache, fevers, weakness, nausea without vomiting and cough. He reports no complaints of visual changes, dizziness dysphagia or dysarthria but has had nasal congestion but no sore throat. He complains of difficulty taking a deep breath related to abdominal distension which too has increased over 3 days. He states his last bowel movement was 2 days ago and was hard and difficult to pass. He reports no rectal bleeding. He indicates he has no difficulty urination and has not noticed an increase in frequency. He has been compliant with his diabetic medications and diet. Upon arrival to the ER the patient is found to be febrile 101.0?, tachycardic at 1:09 a.m., blood pressure 122/75, respiratory rate of 28 saturating 98% on room air. Patient undergoes imaging with a ultrasound of the left lower extremity which is negative for DVT. He further undergoes a CTA which finds acute segmental pulmonary emboli within the right lower lobe and no evidence of right ventricular strain. A CT of the abdomen and pelvis with contrast identifies small liver cysts, bilateral renal cysts, gallbladder in solid organs otherwise unremarkable, moderate stool without bowel obstruction, left hip arthroplasty with prominent plate and screw fixation of old left femur fracture, severe right hip degenerative changes. On laboratory analysis the patient is found have a white count of 22.4, hemoglobin of 12.9, hematocrit of 37.5 and platelets of 317. On chemistry has a sodium of 129 and chloride of 94, potassium of 4.7, BUN of 14 and creatinine of 0.76. His an elevated glucose of 289. His a total bilirubin of 0.6, AST of 22, ALT of 17 and alkaline phosphatase of 80. He has an LDH of 393. Has lactic acid of 1.8, procalcitonin of 0.36, CRP elevated at 23.9 and is he has are of 31. His D-dimer is 860. In the ER the patient is given sepsis bolus with lactated Ringer's at 30 mL/kilos. Is also administered Levaqu in 750 mg as well as vancomycin 2 g IV. He is anticoagulated with Lovenox 1 milligram/kilogram for 105 mg subcutaneously. The patient is admitted to the medicine service for sepsis related to cellulitis with secondary pulmonary emboli and hyperglycemia. Patient History Medical History (Updated 11/05/19 @ 02:37 by LO Ashford) Diabetes type 2, uncontrolled (Acute) Hemorrhoids (Acute) Hypertension (Acute) Surgical History (Updated 11/05/19 @ 02:37 by LO Ashford) History of hip replacement (Acute) History of hip surgery (Acute) Status post knee surgery Family & Social History Family History Father Congestive heart failure Mother Cancer Brother No significant medical problems Safety & Behavioral: Feels Safe in Current Yes Environment Been Physically Hurt or No Threatened By a Person Tobacco & Substance use: Smoking Status Former smoker alcohol intake frequency other Substance Use Type does not use Comment: Advanced directive: In direct discussion with the patient states his wish to be FULL CODE. He designates his brother Young to be his surrogate decision maker. Meds Home Medications and Allergies Home Medications Medication Instructions Recorded Confirmed Type amlodipine 5 mg PO DAILY 11/05/19 11/05/19 History glipizide 10 mg PO BID 11/05/19 11/05/19 History insulin glargine 18 units SUBCUT BID 11/05/19 11/05/19 History lisinopril 40 mg PO DAILY 11/05/19 11/05/19 History metformin 1,000 mg PO BID 11/05/19 11/05/19 History polyethylene glycol 3350 17 g PO BID PRN 11/05/19 11/05/19 History Allergies Allergy/AdvReac Type Severity Reaction Status Date / Time No Known Drug Allergies Allergy Verified 11/04/19 22:46 Review of Systems Review of Systems ROS: Yes All systems reviewed with the patient and are negative except as otherwise documented Exam Vital Signs (past 8 hours): - 11/04/19 21:36 11/04/19 22:40 11/05/19 00:21 Temperature 101.0 F H Pulse Rate 109 H 104 H 108 H Respiratory Rate 28 H 24 26 H Blood Pressure 122/75 Blood Pressure [Right Arm] 157/85 H 171/84 H Pulse Oximetry 98 96 98 Oxygen Delivery Method Room Air Narrative Exam Narrative: GENERAL APPEARANCE: well developed, obese male who anxious and tachypneic and moderate pain. HEENT: Normocephalic, PERRLA, conjunctiva clear, EOMs intact without nystagmus, no sinus tenderness to percussion, no rhinorrhea, mucous membranes are moist and pink without lesions or exudate. NECK/THYROID: neck supple, no JVD, no carotid bruit, no thyromegaly, trachea midline. LYMPH NODES: no cervical or supraclavicular lymphadenopathy. SKIN: [place], warm and dry, no visible lesions, redness swelling and warmth left lower leg from the foot to the knee with red streak to the thigh. HEART: regular rate and rhythm, S1-split S2, 1/6 systolic murmur, no rubs or gallops, brisk capillary refill, swelling of the left lower leg only. LUNGS: clear to auscultation bilaterally, no coarseness crackles or wheezing, no cough present CHEST: Symmetrical movement, no accessory muscle use, shallow tidal volume, no pain on AP and lateral compression. ABDOMEN: Firm, tympanic to percussion bilateral upper quadrants with distention, no tenderness, no guarding or peritoneal signs, no organomegaly, no flank or suprapubic tenderness, active bowel tones, indwelling Márquez catheter draining clear yellow urine. EXTREMITIES: moves all extremities, strength is 5/5 and symmetrical, no deformities or joint effusions. NEUROLOGIC: AAO x4, cranial nerves II-XII grossly intact, neuropathy left lower leg, hearing grossly normal to speech. PSYCH: Anxious and tearful, redirectable, cooperative. Objective Labs Result Diagrams: 11/04/19 22:00 11/04/19 22:00 Labs: Laboratory Results - last 24 hr 04/19/20 04/19/20 04/19/20 22:00 22:00 22:00 WBC 22.4 H RBC 4.33 L Hgb 12.9 L Hct 37.5 L MCV 86.7 MCH 29.7 MCHC 34.3 RDW 12.7 Plt Count 317 Neut % (Auto) 91.5 H Lymph % (Auto) 4.7 L [place] % (Auto) 3.6 Eos % (Auto) 0.0 L Baso % (Auto) 0.2 Neut # (Auto) 91258 H Lymph # (Auto) 1100 [place] # (Auto) 800 Eos # (Auto) 0 Baso # (Auto) 0 ESR 31 H D-Dimer 860 H Sodium Potassium Chloride Carbon Dioxide BUN Creatinine Estimated GFR BUN/Creatinine Ratio Glucose Lactate Calcium Ferritin Total Bilirubin AST ALT Alkaline Phosphatase Lactate Dehydrogenase Total Creatine Kinase CK-MB (CK-2) CK-MB (CK-2) Rel Index Troponin I C-Reactive Protein NT-Pro-B Natriuret Pep Total Protein Albumin Globulin Albumin/Globulin Ratio Procalcitonin 0.36 Urine Color Urine Appearance Urine pH Ur Specific [place] Urine Protein Urine Glucose (UA) Urine Ketones Urine Occult Blood Urine Nitrate Urine Bilirubin Urine Urobilinogen Ur Leukocyte Esterase Urine RBC Urine WBC Ur Squamous Epith Cells Urine Bacteria Ur Culture Indicated? 11/04/19 11/04/19 11/04/19 22:00 22:00 22:00 WBC RBC Hgb Hct MCV MCH MCHC RDW Plt Count Neut % (Auto) Lymph % (Auto) [place] % (Auto) Eos % (Auto) Baso % (Auto) Neut # (Auto) Lymph # (Auto) [place] # (Auto) Eos # (Auto) Baso # (Auto) ESR D-Dimer Sodium 129 L Potassium 4.7 Chloride 94 L Carbon Dioxide 24 BUN 14 Creatinine 0.76 Estimated GFR > 60.0 BUN/Creatinine Ratio 18.4 Glucose 289 H Lactate 1.8 Calcium 9.1 Ferritin 172 Total Bilirubin 0.6 AST 22 ALT 17 Alkaline Phosphatase 80 Lactate Dehydrogenase 393 Total Creatine Kinase 159 CK-MB (CK-2) 2.34 CK-MB (CK-2) Rel Index 1.5 Troponin I 0.023 C-Reactive Protein 23.9 H NT-Pro-B Natriuret Pep 1050 H Total Protein 7.6 Albumin 4.2 Globulin 3.4 Albumin/Globulin Ratio 1.2 Procalcitonin Urine Color Urine Appearance Urine pH Ur Specific [place] Urine Protein Urine Glucose (UA) Urine Ketones Urine Occult Blood Urine Nitrate Urine Bilirubin Urine Urobilinogen Ur Leukocyte Esterase Urine RBC Urine WBC Ur Squamous Epith Cells Urine Bacteria Ur Culture Indicated? 11/05/19 00:35 WBC RBC Hgb Hct MCV MCH MCHC RDW Plt Count Neut % (Auto) Lymph % (Auto) [place] % (Auto) Eos % (Auto) Baso % (Auto) Neut # (Auto) Lymph # (Auto) [place] # (Auto) Eos # (Auto) Baso # (Auto) ESR D-Dimer Sodium Potassium Chloride Carbon Dioxide BUN Creatinine Estimated GFR BUN/Creatinine Ratio Glucose Lactate Calcium Ferritin Total Bilirubin AST ALT Alkaline Phosphatase Lactate Dehydrogenase Total Creatine Kinase CK-MB (CK-2) CK-MB (CK-2) Rel Index Troponin I C-Reactive Protein NT-Pro-B Natriuret Pep Total Protein Albumin Globulin Albumin/Globulin Ratio Procalcitonin Urine Color Yellow Urine Appearance Clear Urine pH 7.5 Ur Specific [place] 1.010 Urine Protein 1+ H Urine Glucose (UA) 1+ H Urine Ketones Trace H Urine Occult Blood Trace-lysed Urine Nitrate Negative Urine Bilirubin Negative Urine Urobilinogen 0.2 Ur Leukocyte Esterase Negative Urine RBC None seen Urine WBC None seen Ur Squamous Epith Cells 0-1 /hpf Urine Bacteria None seen Ur Culture Indicated? Cult not indicated Assessment & Plan Assessment & Plan narrative: This is a 59-year-old male patient who presents to the ER with fevers and chills, shortness of breath and swelling and redness the left lower extremity. Patient is found to have cellulitis and pulmonary emboli and diabetes with hyperglycemia. 1. Sepsis without end-organ dysfunction, present on admission, active. -patient with positive septic indicators including leukocytosis at 22.4, elevated ESR at 31, elevated CRP of 23.9 within normal procalcitonin 0.36, lactic acid of 1.8, patient is Febrile at 101.0 ?, tachycardic at 109, and increased respiratory rate of 28 without hypoxemia. -patient also has history of diabetes type 2 not currently on medication within glucose upon arrival 289. -acute q SOFA score is 1 for tachycardia which may be a function both of PE as well as pain. -causes sepsis is left lower leg cellulitis treated as below. -patient is screen for COVID-19. 2. Cellulitis left lower extremity, acute, present on admission, active. -patient reports increasing pain swelling and redness of the left lower leg worsening over 3 days additionally stating he cannot ambulate on the leg. -ultrasound of the left lower extremity is negative for DVT with recent left hip and femur surgery. -patient with predominant redness from the ankle to the knee with faint red streak extending up medial thigh. -ordered vancomycin 2 g IV every 12 hours with pharmacy to dose, patient with BUN of 14 and creatinine of 0.79 with an estimated GFR greater than 60, creatinine clearance 156.3. First dose administered in the emergency department -ordered levofloxacin 750 mg IV every 24 hours. First dose administered in the emergency department. -will follow CBC and procalcitonin. 3. Pulmonary emboli, acute, present on admission, active. -patient with decreased mobility following [facility] and continued PT until October when it was discontinued secondary to COVID-19 pandemic. Patient has attempted to keep up exercises but has dec reased mobility related to pain for the last 3 days. -patient reports shortness of breast for 3 days with associated cough worse yesterday improved today. -positive D-dimer at 860, CTA finds segmental right lower lobe pulmonary emboli, provoked related to recent surgery of left leg and infection. -risk stratification: Stable vital signs with mild tachycardia at 1:08 a.m., No RV strain, troponin is 0.023, patient with elevated proBNP- 1050 pg/mL but has received large fluid bolus per sepsis protocol. Will obtain echocardiogram. -ordered Lovenox 105 mg subcutaneously twice daily. 4. Diabetes mellitus type 2, insulin dependent, uncontrolled, chronic, present on admission, active -blood glucose on admission labs is 289. Urinalysis significant for 1+ glucose 1+ protein and trace ketones. -patient states he has been compliant with his diabetic medications and diet, he denies excessive thirst or urination. -fingerstick blood sugars a.c. and HS, will cover with low range correctional insulin -continue insulin glargine 18 units twice daily. -will follow-up glycemic control and electrolytes on labs and adjust insulin regimen as needed. 5. Constipation with abdominal distension, acute on chronic, present on admission, active. -the patient complains of abdominal distension increasing over the last 3 days with last bowel movement 2 days ago that was hard and difficult to pass. -patient reports abdominal distension is painful makes it difficult to breathe. -CT of the abdomen pelvis finds significant stool burden. -ordered Doculax suppository x1 now, if no results fleets enema. -docusate ordered twice daily, MiraLax 17 g twice daily as needed and/or Dulcolax once daily as needed for constipation. 6. Hypertension, chronic, stable -blood pressure adequately controlled upon arrival to the ER with a blood pressure 122/75. -while in the ER the patient received sepsis bolus 30 mL/kilogram. IV fluid turn down to 50 cc/hour. -continue home medication regimen of amlodipine 5 mg daily and lisinopril 40 mg daily. 7. Debilitation, status post left hip and femur surgery. -the patient had a previous dynamic hip screw placement for a proximal femur fracture 10 years ago which is removed on August 10 in anticipation of total hip replacement. The patient had developed a nontraumatic intertrochanteric femoral fracture identified on 08/18/2019 him sensibly underwent a left total hip arthroplasty with a prophylactic lateral femoral plate fixation. -the patient had been discharged from the hospital on 08/31 with home physical therapy. This was discontinued in October related to COVID-19 restrictions. 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 -the patient attempted to continue exercise and was told he was allowed to weightbear but has been unable to weightbear on the left leg related to pain for the last several days. -patient complains of leg and back pain, ordered acetaminophen 650 mg every 4 hours as needed for mild pain and hydromorphone 0.5 mg IV for moderate pain. -request PT and OT to consult, evaluate and treat. 8. Urinary retention, acute, present on admission, active. -patient reports no difficulty with urination, frequency or urgency or hematuria. Urinalysis is negative for infection. -CT finds distended bladder, no notation made of enlarged prostate. Patient has been unable to void in the emergency department and Márquez catheter placed and is draining clear yellow urine. -will discontinue Márquez catheter, will reassess patient's urinary status and may consider starting tamsulosin. VTE prophylaxis: Right SCD, therapeutic Lovenox at 1 milligram/kilogram twice daily. IV fluid: Normal saline 50 cc/hour. Diet: Small constant carbohydrate diet. Code status: FULL CODE, the patient designates his brother Young to be his surrogate decision maker. The patient is admitted to the hospital for provoked PE in the setting of diabetic cellulitis with hyperglycemia. The patient is admitted as an inpatient with expected length of stay to be greater than 2 midnights. Scores GCS [place] coma scale eye opening: Spontaneous Rita coma scale verbal response: Orientated [place] coma scale motor response: Obey commands Rita coma scale total score: 15 Quality VTE Deep Vein Thrombosis/Pulmonary Embolism Present on Admission: No
[2019-11-05 01:02] LABS: INR 1.3 (0.9-1.3); Prothrombin Time 14.5 SECONDS (10.1-12.7)
[2019-11-05 01:07] LABS: Magnesium 1.6 mg/dL (1.6-2.3)
[2019-11-05 01:10] LABS: PTT Partial Thromboplastin Tim 30 SECONDS (26.4-36.2)
--- NOTE | 2019-11-05 01:27 | PC.NURSE ---
upon transfer received a verbal order from hanna lagunas to reduce LR rate to 50mls/hr. LR and Vanc to continue in acute care.
[2019-11-05] MEDS: HYDROMORPHONE 0.5 MG INJ IV (01:39)
[2019-11-05] MEDS: BISACODYL 10 MG SUPP PR (01:51)
[2019-11-05] MEDS: INSULIN GLARGINE 100 UNIT/ML 3ML PEN 18 UNIT SUBCUT ×3 (02:59→21:58)
[2019-11-05] MEDS: ACETAMINOPHEN 325 MG TABLET 650 MG PO ×2 (03:02→09:25)
--- NOTE | 2019-11-05 03:14 | PC.NURSE ---
Admitted to room 217, diagnosed with LLE Cellulitis & R/O COVID 19 on isolation. Showed how to use his call light, TV & bed controls. Instructed to call for any assistance & not to get OOB without any help. LIZ erythema outlined @ 0118, will monitor.
[2019-11-05 05:00] LABS: Adenovirus Not Detected (Not Detect); Bordetella pertussis Not Detected (Not Detect); Chlamydophila pneumoniae Not Detected (Not Detect); Coronavirus 229E Not Detected (Not Detect); Coronavirus HKU1 Not Detected (Not Detect); Coronavirus NL 63 Not Detected (Not Detect); Coronavirus OC43 Not Detected (Not Detect); Human Metapneumovirus Not Detected (Not Detect); Human Rhinovirus/Enterovirus Not Detected (Not Detect); Influenza A Not Detected (Not Detect); Influenza B Not Detected (Not Detect); Mycoplasma pneumoniae Not Detected (Not Detect); Parainfluenza Virus 1 Not Detected (Not Detect); Parainfluenza Virus 2 Not Detected (Not Detect); Parainfluenza Virus 3 Not Detected (Not Detect); Parainfluenza Virus 4 Not Detected (Not Detect); Respiratory Syncytial Virus Not Detected (Not Detect)
[2019-11-05] MEDS: MINERAL OIL 1 EACH ENEMA PR (05:42)
[2019-11-05 06:04] LABS: Add Manual Diff / Slide Review NO; Basophils Absolute Auto 100 /uL (0-100); Basophils Percent Auto 0.4 % (0-2); Eosinophils Absolute Auto 0 /uL (0-450); Eosinophils Percent Auto 0.1 % (2-4); Hemoglobin 12.8 g/dL (13.5-17.5); Lymphocytes Absolute Auto 1600 /uL (1100-4500); Lymphocytes Percent Auto 7.6 % (25-40); Mean Corpuscular HGB Conc 34.5 % (30-36); Mean Corpuscular Hemoglobin 29.7 PG (26-34); Mean Corpuscular Volume 85.9 fL (80-100); Monocytes Absolute Auto 900 /uL (0-900); Monocytes Percent Auto 4.4 % (3-14); Neutrophils Absolute Auto 18600 /uL (1500-7000); Neutrophils Percent Auto 87.5 % (50-75); Platelet Count 289 X10^3/uL (150-400); Red Blood Cell Count 4.31 X10^6/uL (4.5-5.9); White Blood Cell Count 21.2 X10^3/uL (4.5-11.0)
--- NOTE | 2019-11-05 06:07 | PC.NURSE ---
Yulisa ERNANDEZ'erika per hospitalist order & Enema admin. Instructed to call for assistance to BSC. Urinal at bedside table, call light within reach. Will monitor.
[2019-11-05 06:14] LABS: BUN Creatinine Ratio 19.7 (6-22); Blood Urea Nitrogen 13 mg/dL (9-20); Calcium 8.9 mg/dL (8.4-10.2); Carbon Dioxide 24 mmol/L (22-32); Chloride 98 mmol/L (98-107); Estimated Glomerular Filt Rate > 60.0 mL/min (>60); Glucose 123 mg/dL (70-100); HEMOLYSIS < 15 (0-50); Potassium 4.1 mmol/L (3.4-5.1); Sodium 131 mmol/L (137-145)
[2019-11-05 06:23] LABS: NT-proBNP (BNP-Adult 18+) 1040 pg/mL (<125)
[2019-11-05 06:30] LABS: Procalcitonin 0.31 ng/mL (<0.5)
[2019-11-05 08:07] LABS: Magnesium 1.9 mg/dL (1.6-2.3)
[2019-11-05] MEDS: DOCUSATE 100 MG CAPSULE 200 MG PO ×2 (09:03→21:57)
[2019-11-05] MEDS: CEFTRIAXONE 2 GM/50 ML FROZ.PIGGY IV (09:03)
[2019-11-05] MEDS: polyethylene glycoL 3350 17 GM POWD.PACK PO (09:06)
[2019-11-05] MEDS: lisinopriL 20 MG TABLET 40 MG PO (09:06)
[2019-11-05] MEDS: AMLODIPINE 5 MG TABLET PO (09:07)
[2019-11-05] MEDS: ENOXAPARIN 60 MG/0.6 ML SYRINGE 105 MG SUBCUT ×2 (09:24→21:58)
[2019-11-05] MEDS: SODIUM CHLORIDE 0.9% 1,000 ML 50 ML IV (09:24)
[2019-11-05] MEDS: VANCOMYCIN 1,500 MG/300 ML FROZ.PIGGY 200 MG IV ×2 (09:25→18:41)
[2019-11-05] MEDS: INSULIN ASPART 100 UNIT/ML INSULN PEN SUBCUT ×3 (09:29→16:44)
--- NOTE | 2019-11-05 10:43 | PC.NURSE ---
PT WITH INTERMITTENT DIAPHORESIS- AFEBRILE DROWSY BUT ORIENTED - DENIES NAUSEA AND TAKING ONLY LIQUIDS PER PT REQUEST-( HE DOESN'T HAVE HIS DENTURES) WILL ORDER DIET APPROPRIATELY- AM BLD GLU 136 AND COVERED WITH 1 UNIT HUMALOG WELL 18 UNITS LANTUS PER MD ORDER- SMALL BM PER BSC PRIOR TO SEWAGE SCREEN OPERATOR LEAVING- ABD REMAINS FIRM WITH ACTIVE BT'S - ALSO GIVEN MIRALAX AND PO COLACE- ABLE TO BE WEANED FROM 02 WITH SPO2 94-99% ON ROOM AIR- VANCO/ROCEPHIN FOR ANTIBIOTIC THERAPY- LUNGS DIMINISHED OTHERWISE CLEAR
--- NOTE | 2019-11-05 11:00 | PT.IIE ---
Surgical History (Last Updated 11/05/19 @ 02:37 by LO Ashford) History of hip replacement (Acute) History of hip surgery (Acute) Status post knee surgery Medical History (Last Updated 11/05/19 @ 02:37 by LO Ashford) Diabetes type 2, uncontrolled (Acute) Hemorrhoids (Acute) Hypertension (Acute) Physical Therapy Inpatient Evaluation/Re-Eval M1 PT/OT-IP Prior Functional Status Start: 11/05/19 11:21 Freq: NEEDED Status: Active Protocol: Document 11/05/19 11:21 [facility] (Rec: 11/05/19 11:59 [facility] [id number]) Medical Review Prior Functional Status Medical History Reviewed Yes Diet/Fluid Consistency Regular Communication WNL Mobility and Gait Pt amb with FWW, 4WW or crutches since surgyer on (L YVONNE w/lat femoral plate fixation). Prior to that did not use AD Activities of Daily Living and IADL's Indep with dressing and bathing overall but housemate stays by him while he is bathing to make sure he is safe. He does some of his own meals but housemate does some also and housemate does cleaning. Social History Household Members friend(s) Living Arrangements House Number of Floors (Floors) One Floor Number of Stairs To Enter/Railing? w/c ramp entry Home Environment High Toilet,Tub/Shower Home Equipment Front Wheel Walker,Four Wheel Walker,Crutches,Manual Wheelchair,Tub Transfer Bench, Long Handled Sponge,Long Handled Shoe Horn,Harness Cutter,Sock Aid,Grab Bars Near Toilet, Grab Bars In Shower M2 PT-IP Current Condition Start: 11/05/19 11:21 Freq: NEEDED Status: Active Protocol: Document 11/05/19 11:21 [facility] (Rec: 11/05/19 11:59 [facility] [id number]) Physical Therapy Current Condition Current Condition Evaluation Date 11/05/19 Treatment Diagnosis pulm ebolism, cellulits LLE, sepsis, difficulty walking Weight Bearing Status Weight Bearing Status Weight Bear as Tolerated M3 PT-IP Subjective Start: 11/05/19 11:21 Freq: NEEDED Status: Active Protocol: Document 11/05/19 11:21 [facility] (Rec: 11/05/19 11:59 [facility] [id number]) Subjective Physical Therapy Visit Type Type Initial Evaluation Visit Start Time 10:28 Visit Stop Time 11:00 Total Visit Minutes 32 Number of WIREWORKER Visits 0 Physical Therapy Visit Comments Patient Comments Pt agreeable to work with yazmin. Reports his abdomen has a lot of pressure Therapy Pain Assessment Pain When Pain Assessed During Mobility Pain Present Pain Present Pain Reported Location Left Leg Description Tightness Pain Management Techniques Re-positioning M4 PT-IP Mobility and Gait Start: 11/05/19 11:21 Freq: NEEDED Status: Active Protocol: Document 11/05/19 11:21 [facility] (Rec: 11/05/19 11:59 [facility] [id number]) PT-Bed Mobility Assessment Supine to Sit Supine to Sit Standby Assistance,Head of Bed Elevated,Bedrails Scooting Scooting to Edge of Bed Standby Assistance PT-Transfer Assessment Sit to and From Stand Sit to and from Stand Contact Guard Assistance,Use of Upper Extremities Equipment Transfer Assistive Device Gait Belt,Front Wheeled Walker Transfers Transfer Destination Chair Transfer Technique Stand Step Pivot Transfer Ability Level of Assist Contact Guard Assistance Comments Mobility Comments Pt did bed mobility with HOB elevated about 30 deg and with use of bed rails SBA and scooted to EOB SBA. He stood with difficulty with CGA and stood at FWW. He reproted tightness in his calf with standing. He stood fro about 1 min CGA while PROOF COINS INSPECTOR cleaned his buttocks d/t earlier enema. He then turned to transfer to chair with FWW and CGA and cueing for use of UE for decent to chair. He was adjusted and made comfortable until he reported he had to use the restroom and stood from chair CGA to FWW and amb to bathroom CGA with FWW then sat on toilet with heavy use of bars CGA. Pt left with PROOF COINS INSPECTOR on toilet. Gait Assessment Gait Gait Assistance Required: Contact Guard Assist Distance (Feet) 10 Able to Maintain Weight Bearing Status Yes During Gait Assistive Devices Assistive Device Gait Belt,Front Wheeled Walker Orthotic/Prosthetic Devices or Brace: No Gait Deviations General Gait Pattern Antalgic,Decreased Stride Length,Flexed Trunk Factors Limiting Gait Function Factors Limiting Gait Function Decreased Activity Tolerance, Decreased Strength,Limited Range of Motion,Pain,Poor Balance Comments Gait Comments see above PT-Balance Assessment Sitting Balance and Reactions Static Sitting Balance Ability Good Dynamic Sitting Balance Ability Good Standing Balance and Reactions Static Standing Balance Ability Fair Dynamic Standing Balance Ability Fair Device Used FWW M5 PT-IP Objective Assessments Start: 11/05/19 11:21 Freq: NEEDED Status: Active Protocol: Document 11/05/19 11:21 [facility] (Rec: 11/05/19 11:59 [facility] [id number]) Orientation Orientation/Cognition Level of Alertness Alert Language Function Ability No Deficits Noted Safety Awareness Decreased Safety Awareness Memory Description No Deficits Noted Strength Lower Extremity Strength Assessment Left Impaired M6 PT-IP Treatment Start: 11/05/19 11:21 Freq: NEEDED Status: Active Protocol: Document 11/05/19 11:21 [facility] (Rec: 11/05/19 11:59 [facility] [id number]) Physical Therapy Treatment Education Education Provided Safety M7 PT-IP Assessment and Plan Start: 11/05/19 11:21 Freq: NEEDED Status: Active Protocol: Document 11/05/19 11:21 [facility] (Rec: 11/05/19 11:59 [facility] [email or web address]) PT Summary Assessment and Plan Potential Rehabilitation Potential Good Status of Condition at Evaluation Evolving Summary Impairments Pain,ROM,Strength,Balance,Bed Mobility,Transfers,Gait, Activity Tolerance Assessment Summary Pt presents with sepsis, LLE cellultis & pulmunary edema, which limited his ability to ambulate. He reports the last few days his calf was too painful to walk. He did well with thearpy today and was able to walk short bout and move around with pain in calf and abdomen CGA. He is lieklyt o cont to progress in order to return home with assist from his housemate. He may possibly benefit from PT if cont to have issues with mobility. Goals Bed Mobility Goal Independent Transfer Goal Independent Gait Goal Independent Gait Distance 150ft Days to Meet Goals 6 Frequency of Treatment Frequency Of Treatment Once a Day Treatment Plan Physical Therapy Treatment Plan Bed Mobility Training,Transfer Training,Gait Training, Therapeutic Exercise,Balance Retraining,Discharge Planning, Neuromuscular Re-ed Other Recommendations and Next Treatment work on gait with FWW & work Focus on ability to do sit<>stand Recommendations To Nursing Amount of Assist Needed Standby Assistance Discharge Recommendations PT Discharge Recommendations Home with Assistance Transportation Needs at Discharge Private Vehicle
--- NOTE | 2019-11-05 11:13 | DIET.PN ---
Dietary Progress Note Assessment: Mr. Finch is a 59-year-old male with a history of insulin-dependent diabetes type 2, hypertension, recent left hip surgery (08/2019) who presents to the hospital with worsening left lower extremity pain. He complains of redness and swelling on the left lower leg that has been been progressive for 3 days. He reports working with PT until October when this was discontinued related to COVID-19 restrictions. Pt reports nausea with decrease in appetite and difficulty eating r/t bloated feeling. He also reports difficulty chewing related to poor dentition. He states he has not been able to reach anyone to bring his dentures. HT: 177.8cm WT: 105.5kg UBW: n/a BMI: 33.4 (obese class III) Labs: Hgb: 12.8 Hct: 37 Na: 131 Gluc: 289 (on arrival), 123 1+ glucose 1+ protein trace ketones MNA: 13 Maury: 19 Nutrition Diagnosis: Altered Nutrition related laboratory values related to impaired glucose metabolism, lack of previous exposure to accurate nutrition information as evidenced by pt report, dx of diabetes, hyperglycemia related to LLE swelling/ abscess. ? Interventions: 1. Discussed impact of nutrition/diet on blood sugar control.? 2. Discussed the effect of carbohydrates/protein/fat on blood sugar control.? Stressed importance of consistent carbohydrate intake at each meal and provided instructions for recommended servings/portions of carbohydrates/protein per meal. Provide pt with educational material. 3. Reviewed carbohydrate counting and measuring carbohydrate content via serving sizes and reading nutrition labels.? ? 4. Discussed the difference between simple versus complex carbohydrates and the effect of fiber on blood sugar control.? Discussed various methods to increase fiber content in diet. 5. Stressed importance of meal timing and not going >4-5 hours between meals. Encouraged adding protein to each meal to support glucose control. 6. Discussed healthy weight loss through diet and exercise to increase lean muscle mass when able to do so. 7. Discussed follow heart heathy, soft foods diet to ensure adequate PO intake until pt receives his dentures. 8. Recommend ONS glucerna BID for POs < 70%. ? Diet Order: CCD; recommend easy chew EER: 2200 keesha @ 30cal/kg IBW (weight loss); 130-145 g Pro @ 1.2-1.4 g/kg wound healing, increased risk for loss of LBM. Monitoring/Evaluations: weight, PO's, associated labs, diet tolerance
[2019-11-05] MEDS: SODIUM CHLORIDE 0.9% FLUSH 10 ML IV ×2 (12:19→21:44)
--- NOTE | 2019-11-05 13:01 | OT.IPNOTE ---
Pt asleep and awaken to try to do OT eval. Pt states too tired and that his abdomen is hurting due to just finished eating. Therefore, to attempt OT eval tomorrow.
--- NOTE | 2019-11-05 15:06 | CM.DANOTE ---
DCP/Assessment: Reviewed chart. Patient is 59yr old male admitted to [facility] for inability to walk. Patient with h/o diabetes. No PCP listed. Primary payor is [facility]. Patient currently COVID 19 pending. Therefore, PERFECT BINDER FEEDER OFFBEARER did not enter room. Spoke with RN/Shona whom reports that patient with PE, and cellulitis. She adds that patient has been very emotional today. Patient up in room with assist. Per H&P [facility]? Had HH up until October? Notified RN that CM team otr truck driver would touch base with patient and complete assessment for needs once COVID results return and are negative. P: CM team to follow closely. Patient most likely will have d/c planning needs. May be helpful to touch [facility] whether or not patient is case managed. JEREMIAH Dumont Discharge Planning/Care Management Discharge Assessment Start: 11/05/19 15:02 Freq: Status: Active Protocol: Document 11/05/19 15:03 [facility] (Rec: 11/05/19 15:05 [facility] [id number]) Discharge Planning Assessment Assigned Research Mechanic JEREMIAH Dumont Contact Information Young Finch (brother) Advance Directives? No Advance Directives on File No History Provided By Patient Prior Living Arrangements House Household Members friend(s) Type of transporation used prior to Drives own vehicle admit Willing to Return to Facility? No Independent with ADL's Unknown Is patient alert and oriented? COVID pending Caregiver for Another No Comment Unknown at this time Transportation Arrangement Unkown at this time Review Status In Process Next Review Type Continued Stay Review
--- NOTE | 2019-11-05 17:25 | PM.PN.1 ---
Subjective Subjective Date Patient Seen: 11/05/19 Interval history: Brief progress note: Patient seen and examined. Patient complains of left lower extremity and bilateral hip pain. Patient had asymptomatic brief run of nonsustained ventricular tachycardia. Physical exam unchanged. Left lower extremity cellulitis within margins but has not significantly retracted. Agree with admitting provider's assessment and plan. Plan to give potassium chloride 40 mEq IV x1 as potassium level is low normal at 3.4 and patient had nonsustained ventricular tachycardia as above. Switch levofloxacin to ceftriaxone and continue vancomycin with dosing per pharmacist. Continue conservative measures and elevate lower extremity above level of the heart frequently and for as often as tolerated. Exam Vital Signs (past 8 hours): - 11/05/19 13:08 11/05/19 13:55 11/05/19 16:42 Temperature 97.7 F 99.3 F Pulse Rate 101 H 88 82 Respiratory Rate 18 24 Blood Pressure 140/73 132/72 Pulse Oximetry 97 96 Oxygen Delivery Method Nasal Cannula Oxygen Flow Rate 0 Objective Labs Result Diagrams: 11/05/19 05:44 11/05/19 05:44 Labs: Laboratory Results - last 24 hr 11/04/19 11/04/19 11/04/19 22:00 22:00 22:00 WBC 22.4 H RBC 4.33 L Hgb 12.9 L Hct 37.5 L MCV 86.7 MCH 29.7 MCHC 34.3 RDW 12.7 Plt Count 317 Neut % (Auto) 91.5 H Lymph % (Auto) 4.7 L [place] % (Auto) 3.6 Eos % (Auto) 0.0 L Baso % (Auto) 0.2 Neut # (Auto) 64320 H Lymph # (Auto) 1100 [place] # (Auto) 800 Eos # (Auto) 0 Baso # (Auto) 0 ESR 31 H PT INR APTT D-Dimer 860 H Sodium Potassium Chloride Carbon Dioxide BUN Creatinine Estimated GFR BUN/Creatinine Ratio Glucose Lactate Calcium Magnesium Ferritin Total Bilirubin AST ALT Alkaline Phosphatase Lactate Dehydrogenase Total Creatine Kinase CK-MB (CK-2) CK-MB (CK-2) Rel Index Troponin I C-Reactive Protein NT-Pro-B Natriuret Pep Total Protein Albumin Globulin Albumin/Globulin Ratio Procalcitonin 0.36 Urine Color Urine Appearance Urine pH Ur Specific Potter Urine Protein Urine Glucose (UA) Urine Ketones Urine Occult Blood Urine Nitrate Urine Bilirubin Urine Urobilinogen Ur Leukocyte Esterase Urine RBC Urine WBC Ur Squamous Epith Cells Urine Bacteria Ur Culture Indicated? Chlamy pneumoniae PCR Adenovirus (PCR) B.parapertussis DNA PCR Coronavirus OC43 (PCR) Coronavirus HKU1 (PCR) Coronavirus 229E (PCR) Coronavirus NL63 (PCR) Human Metapneumovir PCR Influenza Type A (PCR) Influenza Type B (PCR) M. pneumoniae (PCR) Parainfluenza 1 (PCR) Parainfluenza 2 (PCR) Parainfluenza 3 (PCR) Parainfluenza 4 (PCR) RSV (PCR) Entero/Rhino (PCR) 11/04/19 11/04/19 11/04/19 22:00 22:00 22:00 WBC RBC Hgb Hct MCV MCH MCHC RDW Plt Count Neut % (Auto) Lymph % (Auto) [place] % (Auto) Eos % (Auto) Baso % (Auto) Neut # (Auto) Lymph # (Auto) [place] # (Auto) Eos # (Auto) Baso # (Auto) ESR PT INR APTT D-Dimer Sodium 129 L Potassium 4.7 Chloride 94 L Carbon Dioxide 24 BUN 14 Creatinine 0.76 Estimated GFR > 60.0 BUN/Creatinine Ratio 18.4 Glucose 289 H Lactate 1.8 Calcium 9.1 Magnesium Ferritin 172 Total Bilirubin 0.6 AST 22 ALT 17 Alkaline Phosphatase 80 Lactate Dehydrogenase 393 Total Creatine Kinase 159 CK-MB (CK-2) 2.34 CK-MB (CK-2) Rel Index 1.5 Troponin I 0.023 C-Reactive Protein 23.9 H NT-Pro-B Natriuret Pep 1050 H Total Protein 7.6 Albumin 4.2 Globulin 3.4 Albumin/Globulin Ratio 1.2 Procalcitonin Urine Color Urine Appearance Urine pH Ur Specific Potter Urine Protein Urine Glucose (UA) Urine Ketones Urine Occult Blood Urine Nitrate Urine Bilirubin Urine Urobilinogen Ur Leukocyte Esterase Urine RBC Urine WBC Ur Squamous Epith Cells Urine Bacteria Ur Culture Indicated? Chlamy pneumoniae PCR Adenovirus (PCR) B.parapertussis DNA PCR Coronavirus OC43 (PCR) Coronavirus HKU1 (PCR) Coronavirus 229E (PCR) Coronavirus NL63 (PCR) Human Metapneumovir PCR Influenza Type A (PCR) Influenza Type B (PCR) M. pneumoniae (PCR) Parainfluenza 1 (PCR) Parainfluenza 2 (PCR) Parainfluenza 3 (PCR) Parainfluenza 4 (PCR) RSV (PCR) Entero/Rhino (PCR) 11/04/19 11/04/19 11/04/19 22:00 22:00 22:00 WBC RBC Hgb Hct MCV MCH MCHC RDW Plt Count Neut % (Auto) Lymph % (Auto) [place] % (Auto) Eos % (Auto) Baso % (Auto) Neut # (Auto) Lymph # (Auto) [place] # (Auto) Eos # (Auto) Baso # (Auto) ESR PT 14.5 H INR 1.3 APTT 30 D-Dimer Sodium Potassium Chloride Carbon Dioxide BUN Creatinine Estimated GFR BUN/Creatinine Ratio Glucose Lactate Calcium Magnesium 1.6 Ferritin Total Bilirubin AST ALT Alkaline Phosphatase Lactate Dehydrogenase Total Creatine Kinase CK-MB (CK-2) CK-MB (CK-2) Rel Index Troponin I C-Reactive Protein NT-Pro-B Natriuret Pep Total Protein Albumin Globulin Albumin/Globulin Ratio Procalcitonin Urine Color Urine Appearance Urine pH Ur Specific [place] Urine Protein Urine Glucose (UA) Urine Ketones Urine Occult Blood Urine Nitrate Urine Bilirubin Urine Urobilinogen Ur Leukocyte Esterase Urine RBC Urine WBC Ur Squamous Epith Cells Urine Bacteria Ur Culture Indicated? Chlamy pneumoniae PCR Adenovirus (PCR) B.parapertussis DNA PCR Coronavirus OC43 (PCR) Coronavirus HKU1 (PCR) Coronavirus 229E (PCR) Coronavirus NL63 (PCR) Human Metapneumovir PCR Influenza Type A (PCR) Influenza Type B (PCR) M. pneumoniae (PCR) Parainfluenza 1 (PCR) Parainfluenza 2 (PCR) Parainfluenza 3 (PCR) Parainfluenza 4 (PCR) RSV (PCR) Entero/Rhino (PCR) 11/05/19 11/05/19 11/05/19 00:35 03:30 05:44 WBC 21.2 H RBC 4.31 L Hgb 12.8 L Hct 37.0 L MCV 85.9 MCH 29.7 MCHC 34.5 RDW 13.0 Plt Count 289 Neut % (Auto) 87.5 H Lymph % (Auto) 7.6 L [place] % (Auto) 4.4 Eos % (Auto) 0.1 L Baso % (Auto) 0.4 Neut # (Auto) 70005 H Lymph # (Auto) 1600 [place] # (Auto) 900 Eos # (Auto) 0 Baso # (Auto) 100 ESR PT INR APTT D-Dimer Sodium Potassium Chloride Carbon Dioxide BUN Creatinine Estimated GFR BUN/Creatinine Ratio Glucose Lactate Calcium Magnesium Ferritin Total Bilirubin AST ALT Alkaline Phosphatase Lactate Dehydrogenase Total Creatine Kinase CK-MB (CK-2) CK-MB (CK-2) Rel Index Troponin I C-Reactive Protein NT-Pro-B Natriuret Pep Total Protein Albumin Globulin Albumin/Globulin Ratio Procalcitonin Urine Color Yellow Urine Appearance Clear Urine pH 7.5 Ur Specific [place] 1.010 Urine Protein 1+ H Urine Glucose (UA) 1+ H Urine Ketones Trace H Urine Occult Blood Trace-lysed Urine Nitrate Negative Urine Bilirubin Negative Urine Urobilinogen 0.2 Ur Leukocyte Esterase Negative Urine RBC None seen Urine WBC None seen Ur Squamous Epith Cells 0-1 /hpf Urine Bacteria None seen Ur Culture Indicated? Cult not indicated Chlamy pneumoniae PCR Not detected Adenovirus (PCR) Not detected B.parapertussis DNA PCR Not detected Coronavirus OC43 (PCR) Not detected Coronavirus HKU1 (PCR) Not detected Coronavirus 229E (PCR) Not detected Coronavirus NL63 (PCR) Not detected Human Metapneumovir PCR Not detected Influenza Type A (PCR) Not detected Influenza Type B (PCR) Not detected M. pneumoniae (PCR) Not detected Parainfluenza 1 (PCR) Not detected Parainfluenza 2 (PCR) Not detected Parainfluenza 3 (PCR) Not detected Parainfluenza 4 (PCR) Not detected RSV (PCR) Not detected Entero/Rhino (PCR) Not detected 11/05/19 11/05/19 11/05/19 05:44 05:44 05:44 WBC RBC Hgb Hct MCV MCH MCHC RDW Plt Count Neut % (Auto) Lymph % (Auto) [place] % (Auto) Eos % (Auto) Baso % (Auto) Neut # (Auto) Lymph # (Auto) [place] # (Auto) Eos # (Auto) Baso # (Auto) ESR PT INR APTT D-Dimer Sodium 131 L Potassium 4.1 Chloride 98 Carbon Dioxide 24 BUN 13 Creatinine 0.66 Estimated GFR > 60.0 BUN/Creatinine Ratio 19.7 Glucose 123 H D Lactate Calcium 8.9 Magnesium Ferritin Total Bilirubin AST ALT Alkaline Phosphatase Lactate Dehydrogenase Total Creatine Kinase CK-MB (CK-2) CK-MB (CK-2) Rel Index Troponin I C-Reactive Protein NT-Pro-B Natriuret Pep 1040 H Total Protein Albumin Globulin Albumin/Globulin Ratio Procalcitonin 0.31 Urine Color Urine Appearance Urine pH Ur Specific [place] Urine Protein Urine Glucose (UA) Urine Ketones Urine Occult Blood Urine Nitrate Urine Bilirubin Urine Urobilinogen Ur Leukocyte Esterase Urine RBC Urine WBC Ur Squamous Epith Cells Urine Bacteria Ur Culture Indicated? Chlamy pneumoniae PCR Adenovirus (PCR) B.parapertussis DNA PCR Coronavirus OC43 (PCR) Coronavirus HKU1 (PCR) Coronavirus 229E (PCR) Coronavirus NL63 (PCR) Human Metapneumovir PCR Influenza Type A (PCR) Influenza Type B (PCR) M. pneumoniae (PCR) Parainfluenza 1 (PCR) Parainfluenza 2 (PCR) Parainfluenza 3 (PCR) Parainfluenza 4 (PCR) RSV (PCR) Entero/Rhino (PCR) 11/05/19 05:44 WBC RBC Hgb Hct MCV MCH MCHC RDW Plt Count Neut % (Auto) Lymph % (Auto) [place] % (Auto) Eos % (Auto) Baso % (Auto) Neut # (Auto) Lymph # (Auto) [place] # (Auto) Eos # (Auto) Baso # (Auto) ESR PT INR APTT D-Dimer Sodium Potassium Chloride Carbon Dioxide BUN Creatinine Estimated GFR BUN/Creatinine Ratio Glucose Lactate Calcium Magnesium 1.9 Ferritin Total Bilirubin AST ALT Alkaline Phosphatase Lactate Dehydrogenase Total Creatine Kinase CK-MB (CK-2) CK-MB (CK-2) Rel Index Troponin I C-Reactive Protein NT-Pro-B Natriuret Pep Total Protein Albumin Globulin Albumin/Globulin Ratio Procalcitonin Urine Color Urine Appearance Urine pH Ur Specific [place] Urine Protein Urine Glucose (UA) Urine Ketones Urine Occult Blood Urine Nitrate Urine Bilirubin Urine Urobilinogen Ur Leukocyte Esterase Urine RBC Urine WBC Ur Squamous Epith Cells Urine Bacteria Ur Culture Indicated? Chlamy pneumoniae PCR Adenovirus (PCR) B.parapertussis DNA PCR Coronavirus OC43 (PCR) Coronavirus HKU1 (PCR) Coronavirus 229E (PCR) Coronavirus NL63 (PCR) Human Metapneumovir PCR Influenza Type A (PCR) Influenza Type B (PCR) M. pneumoniae (PCR) Parainfluenza 1 (PCR) Parainfluenza 2 (PCR) Parainfluenza 3 (PCR) Parainfluenza 4 (PCR) RSV (PCR) Entero/Rhino (PCR) Quality VTE Deep Vein Thrombosis/Pulmonary Embolism Present on Admission: No
[2019-11-05 17:44] LABS: COVID19 Sendout Not Detected (Not Detect)
[2019-11-06] MEDS: VANCOMYCIN 1,500 MG/300 ML FROZ.PIGGY 150 MG IV ×3 (02:06→17:54)
[2019-11-06] MEDS: ACETAMINOPHEN 325 MG TABLET 650 MG PO ×2 (03:46→10:19)
[2019-11-06 05:38] LABS: Add Manual Diff / Slide Review NO; Basophils Absolute Auto 0 /uL (0-100); Basophils Percent Auto 0.3 % (0-2); Eosinophils Absolute Auto 0 /uL (0-450); Eosinophils Percent Auto 0.3 % (2-4); Hematocrit 37.6 % (41-53); Hemoglobin 13.2 g/dL (13.5-17.5); Lymphocytes Absolute Auto 1500 /uL (1100-4500); Lymphocytes Percent Auto 9.3 % (25-40); Mean Corpuscular HGB Conc 35.2 % (30-36); Mean Corpuscular Hemoglobin 30.5 PG (26-34); Mean Corpuscular Volume 86.6 fL (80-100); Monocytes Absolute Auto 800 /uL (0-900); Monocytes Percent Auto 5.1 % (3-14); Neutrophils Absolute Auto 14100 /uL (1500-7000); Platelet Count 276 X10^3/uL (150-400); Red Blood Cell Count 4.34 X10^6/uL (4.5-5.9); Red Cell Distribution Width 12.7 % (11.6-14.8); White Blood Cell Count 16.5 X10^3/uL (4.5-11.0)
[2019-11-06 05:40] VITALS: BP 161/78; PULSE 91; RESP 18; TEMP 36.4; O2SAT 97
[2019-11-06 06:02] LABS: BUN Creatinine Ratio 26.6 (6-22); Blood Urea Nitrogen 17 mg/dL (9-20); Calcium 8.6 mg/dL (8.4-10.2); Carbon Dioxide 22 mmol/L (22-32); Chloride 101 mmol/L (98-107); Estimated Glomerular Filt Rate > 60.0 mL/min (>60); Glucose 181 mg/dL (70-100); HEMOLYSIS < 15 (0-50); Potassium 4.1 mmol/L (3.4-5.1); Sodium 134 mmol/L (137-145)
[2019-11-06 06:19] LABS: Hemoglobin A1C% w Est Avg Glu 7.3 % (4.0-6.0)
[2019-11-06 06:57] LABS: TSH w/ Reflex to FT4 2.25 uIU/mL (0.47-4.68)
[2019-11-06 07:58] LABS: Procalcitonin 0.27 ng/mL (<0.5)
--- NOTE | 2019-11-06 07:59 | P.PN_ITS ---
Subjective Subjective Date Patient Seen: 11/06/19 Interval history: Rom Finch is a 59-year-old male with a past medical history significant for hypertension, diabetes mellitus type 2, insulin using, and recent [facility] who presented to the ED with worsening left lower extremity pain, erythema and edema. The patient is on bedside commode. He has significant emotional lability and appears depressed. He reports he was doing well before his leg infection and blood clot. He has no complaints other than pain of left lower extremity with ambulation and chronic constipation. He denies headache, cough, shortness of breath, chest pain, abdominal pain, nausea, vomiting, fever, chills, dysuria, or diarrhea. Informed him that he is negative for coronavirus in which he was elated. He is voiding without difficulty. He still endorses constipation but has had several BMs with implemented bowel regimen. He is up ambulating with assistance. Exam Vital Signs (past 8 hours): - 11/06/19 05:40 Temperature 97.6 F Pulse Rate 91 H Respiratory Rate 18 Blood Pressure 161/78 H Pulse Oximetry 97 Oxygen Delivery Method Room Air Oxygen Flow Rate 0 Narrative Exam Narrative: General: Middle-aged gentleman sitting on bedside commode, in no acute distress, well-developed, well-nourished, slightly disheveled, emotionally labile and significantly depressed. HEENT: Normocephalic, atraumatic. External ears without defect. Pupils equal, round, and reactive to light. Anicteric sclerae, moist conjunctivae, and no lid lag. Oropharynx free of erythema and cobble stoning with moist mucosa. Neck: Supple with full range of motion. No jugular venous distension. No lymphadenopathy or thyromegaly. Cardiovascular: Regular rate and rhythm without murmurs, rubs, or gallops appreciated. Pulmonary: Clear to auscultation bilaterally without crackles, wheezes, or rhonchi. Normal respiratory effort with no use of accessory muscles. Abdomen: Soft, bowel sounds present, nontender, mild distention. No hepatosplenomegaly or masses appreciated. Extremities: Erythema, mild edema and warmth of left lower extremity distally from left ankle to knee that is within the outlined margin without significant retraction. No clubbing, cyanosis, or edema of other extremities. Neurological: Cranial nerves grossly intact. Psychiatric: Severely depressed mood and affect. Emotionally labile. Alert and oriented to person, place, and time. Objective Labs Result Diagrams: 11/06/19 05:13 11/06/19 05:13 Labs: Laboratory Results - last 24 hr 11/04/19 11/05/19 11/06/19 22:00 05:44 05:13 WBC 16.5 H RBC 4.34 L Hgb 13.2 L Hct 37.6 L MCV 86.6 MCH 30.5 MCHC 35.2 RDW 12.7 Plt Count 276 Neut % (Auto) 85.0 H Lymph % (Auto) 9.3 L Laurens % (Auto) 5.1 Eos % (Auto) 0.3 L Baso % (Auto) 0.3 Neut # (Auto) 55535 H Lymph # (Auto) 1500 Laurens # (Auto) 800 Eos # (Auto) 0 Baso # (Auto) 0 Sodium Potassium Chloride Carbon Dioxide BUN Creatinine Estimated GFR BUN/Creatinine Ratio Glucose Hemoglobin A1c Calcium Magnesium 1.9 Procalcitonin TSH COVID-19 PCR Not detected 11/06/19 11/06/19 11/06/19 05:13 05:13 05:13 WBC RBC Hgb Hct MCV MCH MCHC RDW Plt Count Neut % (Auto) Lymph % (Auto) Laurens % (Auto) Eos % (Auto) Baso % (Auto) Neut # (Auto) Lymph # (Auto) Laurens # (Auto) Eos # (Auto) Baso # (Auto) Sodium 134 L Potassium 4.1 Chloride 101 Carbon Dioxide 22 BUN 17 Creatinine 0.64 L Estimated GFR > 60.0 BUN/Creatinine Ratio 26.6 H Glucose 181 H Hemoglobin A1c 7.3 H Calcium 8.6 Magnesium 2.0 Procalcitonin TSH 2.25 COVID-19 PCR 11/06/19 05:15 WBC RBC Hgb Hct MCV MCH MCHC RDW Plt Count Neut % (Auto) Lymph % (Auto) Laurens % (Auto) Eos % (Auto) Baso % (Auto) Neut # (Auto) Lymph # (Auto) Laurens # (Auto) Eos # (Auto) Baso # (Auto) Sodium Potassium Chloride Carbon Dioxide BUN Creatinine Estimated GFR BUN/Creatinine Ratio Glucose Hemoglobin A1c Calcium Magnesium Procalcitonin 0.27 TSH COVID-19 PCR Assessment & Plan Assessment & Plan narrative: Rom Finch is a 59-year-old male with a past medical history significant for hypertension, diabetes mellitus type 2, insulin using, and recent left hip replacement discharged from the [facility] on 08/31/2019 who presented to the ED with worsening left lower extremity pain, erythema and edema. 1. Acute sepsis ruled out. -Patient met SIRS criteria including: leukocytosis (WBC 22.4), elevated ESR at 31, elevated CRP of 23.9, febrile (temp 101.0?F), tachycardic (HR 109), tachyp gilbert (RR 28) without hypoxemia. Normal procalcitonin 0.36 and lactic acid of 1.8. No end-organ dysfunction. Infectious source cellulitis. qSOFA score is 1 for tachycardia which may be a function both of PE as well as pain. -Screened for COVID-19 which was negative and ruled out. 2. Acute cellulitis of left lower extremity, present on admission. Active. -Patient presented with progressive worsening pain, edema and erythema of the left lower extremity x 3 days to the extent that he was unable to ambulate. Of, patient recently had left hip left hip replacement and was doing well with rehabilitation. -Venous Doppler ultrasound was negative for DVT. -Initial WBC 22.4 and procalcitonin 0.36. WBC and procalcitonin trending down now 16.5 and 0.27 respectively. Continue to monitor WBC and procalcitonin daily. -Received vancomycin with dosing per pharmacist and levofloxacin 750 mg IV x1 in ED. Continue vancomycin with dosing per pharmacist and ceftriaxone 2 g IV daily. -Continue conservative measures and elevate extremity above the level of the heart frequently and for as long as tolerated. 3. Acute provoked right lower lobe pulmonary emboli, present on admission. Active. -Patient with decreased mobility following left hip replacement and was discharged from the [facility] on 08/31/2019. He continued PT until October when it was discontinued secondary to COVID-19 pandemic. Patient has attempted to keep up exercises but has decreased mobility related to pain for the last 3 days. -Patient reports shortness of breast for 3 days with associated cough worse yesterday improved today. -CTA chest demonstrated pulmonary emboli in right lower lobe segmental and subsegmental pulmonary artery. PE provoked related to recent surgery of left leg and infection. -Continue therapeutic Lovenox 105 mg subcutaneously twice daily. Plan to switch patient to NOAC prior to discharge. 4. Diabetes mellitus type 2, insulin using, uncontrolled, chronic, present on admission, active -Hemoglobin A1c 7.3% indicative of fair glycemic control. -Continue ACHS blood glucose checks and medium dose correction scale insulin. -Continue home Lantus increased from 18 units to 20 units twice daily for tig hter glycemic control. -Continue carbohydrate consistent/heart healthy diet. 5. Constipation with mild abdominal distension, acute on chronic, present on admission. Resolved. -Patient complains of abdominal distension increasing over the last 3 days with last bowel movement 2 days ago that was hard and difficult to pass. -CT abdomen and pelvis with contrast demonstrated significant stool burden. -Received Doculax suppository x1 and mineral oil enema with several BMs. Continue bowel regimen with Colace 100 mg twice daily and MiraLax 17 g daily. 6. Hypertension, chronic, present on admission. Stable. -Continue home amlodipine 5 mg daily and lisinopril 40 mg daily. 7. Recent left hip replacement, present on admission. Stable. -Patient had a previous dynamic hip screw placement for a proximal femur fracture 10 years ago which is removed on August 10 in anticipation of total hip replacement. The patient had developed a nontraumatic intertrochanteric femoral fracture identified on 08/18/2019 and underwent a left total hip arthroplasty with a prophylactic lateral femoral plate fixation. -Patient was discharged from the hospital on 08/31 with home physical therapy. This was discontinued in October related to COVID-19 restrictions. 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 -Patient attempted to continue exercise and was told he was allowed to weightbear but has been unable to weightbear on the left leg related to pain for the last several days. -Continue acetaminophen 650 mg every 4 hours as needed for mild pain. -Continue physical and occupational therapy evaluation and treatment. 8. Urinary retention, acute, present on admission, active. -Patient reports no difficulty with urination, frequency, urgency or hematuria. Urinalysis is negative for infection. -CT abdomen and pelvis with contrast demonstrated distended bladder and no notation made of enlarged prostate. Patient has been unable to void and a Márquez catheter was placed in the ED. Márquez catheter was later removed and patient has been able to void without difficulty. Code status: FULL CODE, the patient designates his brother Young to be his surrogate decision maker. VTE prophylaxis: Therapeutic Lovenox at 1 mg/kg twice daily Disposition: Patient likely to discharge in several days once cellulitis has improved. Quality VTE Deep Vein Thrombosis/Pulmonary Embolism Present on Admission: No
[2019-11-06 09:00] VITALS: BP 146/82; PULSE 100; RESP 18; TEMP 36; O2SAT 94
[2019-11-06] MEDS: INSULIN ASPART 100 UNIT/ML INSULN PEN SUBCUT ×3 (09:58→16:33)
[2019-11-06] MEDS: INSULIN GLARGINE 100 UNIT/ML 3ML PEN 18 UNIT SUBCUT (10:00)
--- NOTE | 2019-11-06 10:01 | OT.IP.EVAL ---
Past Medical History (Last Updated 11/05/19 @ 02:37 by LO Ashford) Diabetes type 2, uncontrolled (Acute) Hemorrhoids (Acute) Hypertension (Acute) Surgical History (Last Updated 11/05/19 @ 02:37 by LO Ashford) History of hip replacement (Acute) History of hip surgery (Acute) Status post knee surgery Occupational Therapy Inpatient Evaluation/Re-Eval M1 PT/OT-IP Prior Functional Status Start: 11/05/19 11:21 Freq: NEEDED Status: Active Protocol: Document 11/05/19 11:21 [facility] (Rec: 11/05/19 11:59 [facility] [id number]) Medical Review Prior Functional Status Medical History Reviewed Yes Diet/Fluid Consistency Regular Communication WNL Mobility and Gait Pt amb with FWW, 4WW or crutches since surgery on (L YVONNE w/lat femoral plate fixation). Prior to that did not use AD Activities of Daily Living and IADL's Indep with dressing and bathing overall but housemate stays by him while he is bathing to make sure he is safe. He does some of his own meals but housemate does some also and housemate does cleaning. Social History Household Members friend(s) Living Arrangements House Number of Floors (Floors) One Floor Number of Stairs To Enter/Railing? w/c ramp entry Home Environment High Toilet,Tub/Shower Home Equipment Front Wheel Walker,Four Wheel Walker,Crutches,Manual Wheelchair,Tub Transfer Bench, Long Handled Sponge,Long Handled Shoe Horn,Set Making Machine Operator,Sock Aid,Grab Bars Near Toilet, Grab Bars In Shower M1 PT/OT-IP Prior Functional Status Start: 11/06/19 10:03 Freq: NEEDED Status: Active Protocol: Document 11/06/19 10:03 [facility] (Rec: 11/06/19 10:22 [facility] [id number]) Medical Review Prior Functional Status Medical History Reviewed Yes Diet/Fluid Consistency Regular Communication WNL Mobility and Gait Pt amb with FWW, 4WW or crutches since surgery on (L YVONNE w/lat femoral plate fixation). Prior to that did not use AD Activities of Daily Living and IADL's Indep with dressing and MIN/ MODA for bathing ( assist to wash his back and legs ). He does some of his own meals but house mate does some also and house mate does cleaning. Social History Household Members friend(s) Living Arrangements House Number of Stairs To Enter/Railing? ramp to enter Home Environment High Toilet,Tub/Shower Home Equipment Front Wheel Walker,Four Wheel Walker,Crutches,Manual Wheelchair,Tub Transfer Bench, Long Handled Sponge,Long Handled Shoe Horn,Set Making Machine Operator,Sock Aid,Grab Bars Near Toilet, Grab Bars In Shower M2 OT-IP Current Condition Start: 11/06/19 10:03 Freq: Status: Active Protocol: Document 11/06/19 10:03 [facility] (Rec: 11/06/19 10:22 [facility] [id number]) Occupational Therapy Current Condition Current Condition Evaluation Date 11/06/19 Treatment Diagnosis LLE cellulitis Diagnosis Onset Date 11/05/19 Post Operative Precautions Posterior Hip Precautions No Hip Flexion > 90 degrees,No Hip Internal Rotation,No Hip Adduction Other Precautions Per pt due to left hip sx in August still needing to following hip precautions. Weight Bearing Status Weight Bearing Status Weight Bear as Tolerated M3 OT- IP Subjective and Pain Start: 11/06/19 10:03 Freq: Status: Active Protocol: Document 11/06/19 10:03 [facility] (Rec: 11/06/19 10:22 [facility] [id number]) OT- Subjective Occupational Therapy Visit Type Type Initial Evaluation Visit Start Time 09:10 Visit Stop Time 10:01 Total Visit Minutes 51 Occupational Therapy Visit Comments Patient Comments Pt a bit tearful and wanting to go home. Patient/Caregiver Goals To go home. OT Pain Assessment Pain When Pain Assessed During Mobility Pain Present Pain Present Pain Reported Location Left Leg Intensity 8 Scale Used Numeric (1 - 10) Description Throbbing M4 OT- IP ADL's Start: 11/06/19 10:03 Freq: Status: Active Protocol: Document 11/06/19 10:03 [facility] (Rec: 11/06/19 10:22 [facility] [id number]) OT [id number] Comments OT Self-Feeding Comments NOt at meal time. OT ADL-Grooming General Evaluation Grooming Ability Independent Comments OT Grooming Comments Able to do while sitting from chair to brush his teeth and able to stand to brush his hair. OT ADL-Oral Care General Eval Oral Care Ability Independent OT ADL-Dressing General Eval Lower Body Dressing Ability Moderate Assistance Areas Needing Assistance Underpants/Brief,Socks Comments OT Dressing Comments Pt needing assist to get brief over his feet and assist for socks due to hip precautions and pt getting tired form showering. OT ADL-Toileting Comments OT Toileting Comments Not performed. OT ADL-Bathing Bathing Type Bathing Type Shower General Evaluation Bathing Ability Moderate Assistance Areas Needing Assistance Wash/Dry Back,Wash/Dry Lower Extremities Devices Bathing Equipment Hand Held Shower Sprayer, Shower Chair with Arms,Grab Bars Comments OT Bathing Comments Pt able to stand for most of the shower and having to sit while therapist assist to wash his feet/legs. Pt states at home prior stands to shower and roommates assist with his back and feet. Pt does have a tub bench at home to use. M5 OT- IP IADL's Start: 11/06/19 10:03 Freq: Status: Active Protocol: Document 11/06/19 10:03 [facility] (Rec: 11/06/19 10:22 [id number] OT-Instrumental Activities of Daily Living Home Safety Awareness Awareness of Need for Assistance at Home Good Awareness Medication Management Medication Management No Deficits Identified Money Management Money Management No Deficits Identified Meal Preparation Meal Preparation Caregiver Provides Assist Enrichment Teacher Enrichment Teacher Caregiver Provides Assist Driving Driving Caregiver Provides Assist M6 OT- IP Functional Cognition Start: 11/06/19 10:03 Freq: Status: Active Protocol: Document 11/06/19 10:03 [facility] (Rec: 11/06/19 10:22 [facility] [id number]) Cognitive Factors Limiting Selfcare Function Cognitive Ability Level of Alertness Alert Patient Orientation Name,Month,Year,Day of Week, Place,Situation Attention Span Ability Capable of Focused Attention, Capable of Sustained Attention Ability to Follow Commands Able to Follow Multi-Step Commands Memory Description No Deficits Noted Safety Awareness Underestimates Need for Assistance Cognitive Comments Cognitive Assessment Comments Pt mainly needing encouragement during therapy as easily gets down on himself and for his situation and education pt to try to focus on the positives of his situation. Questionable as pt states in the past was able to do all of his own IV needs. OT- Vision and Hearing OT- Hearing Assessment OT- Hearing Assessment WFL OT- Vision Assessment Visual Acuity Glasses For Reading M7 OT- IP Mobility and Balance Start: 11/06/19 10:03 Freq: Status: Active Protocol: Document 11/06/19 10:03 [facility] (Rec: 11/06/19 10:22 [facility] [id number]) OT- Bed Mobility Assessment Supine to Sit Supine to Sit Assist Independent,Head of Bed Elevated Sit to Supine Sit to Supine Assist Independent,Head of Bed Elevated OT-Transfer Assessment Sit to and From Stand Sit to and from Stand Independent Transfers Transfer Ability Standby Assistance Technique Transfer Destination Bed,Shower Stall Transfer Technique Stand Step Pivot Devices Transfer Assistive Devices Gait Belt,Front Wheeled Walker Comments Mobility Comments Pt has a craftmatic bed at home and states usually get up with the HOB up. CLose SBA while pt able to step over the threshold of the shower with FWW. Otherwise distant supervision with FWW. OT- Gait Assessment Gait Gait Assistance Required: Standby Assistance Comments Gait Ability Comments SBA with FWW, pt insistent that he can walk without the FWW and was starting to at home. PT to assess safety without the FWW, for now due to his LLE pain best to use FWW at this time, OT- Balance Assessment Sitting Balance and Reactions Static Sitting Balance Ability Normal Dynamic Sitting Balance Ability Normal Standing Balance and Reactions Static Standing Balance Ability Good M8 OT- IP Objective Assessments Start: 11/06/19 10:03 Freq: Status: Active Protocol: Document 11/06/19 10:03 [facility] (Rec: 11/06/19 10:22 [facility] [id number]) OT Gross Range of Motion Upper Extremity Range of Motion Assessment Within Functional Limits OT Strength Upper Extremity Strength Assessment Within Functional Limits M9 OT- IP Assessment and Plan Start: 11/06/19 10:03 Freq: Status: Active Protocol: Document 11/06/19 10:03 [facility] (Rec: 11/06/19 10:22 [facility] [id number]) OT Summary Assessment and Plan Potential Rehabilitation Potential Good Analytic Complexity at Evaluation Low Summary OT Impairments Balance,Functional Mobility, Grooming,Dressing,Toileting, Toilet Transfers,Activity Tolerance Progress Towards Goals Progressing Toward Goals Assessment Summary Pt low complexity and main barrier for pt is pain from cellulitis and needing encouragement to stay positive. Pt able to tolerate a shower today and grooming needs and has roommates to be able to assist for any ADL's if needed . Pt may benefit from HH or outpt PT for mobility needs as pt has been trying to progress to walking without a FWW recently as had Left hip sx in August and per pt recent change to WBAT. Goals Grooming Goal Independent Dressing Goal Independent Toileting Goal Independent Bathing Goal Minimal Assistance Toilet Transfer Goal Independent Shower Transfer Goal Independent Days to Meet Goals 5 Frequency of Treatment Frequency Of Treatment Once a Day Treatment Plan OT Treatment Plan ADL Training,Functional Cognition Training,Functional Mobility,Patient/Family Education,Discharge Planning Other Treatment Recommendations and Next Stand at the sink to complete Treatment Focus all grooming needs. Discharge Recommendations OT Discharge Recommendations Home with Assistance,Home Health,Outpatient PT Home Equipment Needs Pt has all needs at home. Transportation Needs at Discharge Private Vehicle
[2019-11-06] MEDS: CEFTRIAXONE 2 GM/50 ML FROZ.PIGGY IV (10:07)
[2019-11-06] MEDS: AMLODIPINE 5 MG TABLET PO (10:08)
[2019-11-06] MEDS: lisinopriL 20 MG TABLET 40 MG PO (10:08)
[2019-11-06] MEDS: polyethylene glycoL 3350 17 GM POWD.PACK PO (10:08)
[2019-11-06] MEDS: DOCUSATE 100 MG CAPSULE 200 MG PO ×2 (10:08→21:13)
[2019-11-06] MEDS: ENOXAPARIN 60 MG/0.6 ML SYRINGE 105 MG SUBCUT ×2 (10:09→21:13)
[2019-11-06] MEDS: LACTULOSE 20 GM/30 ML SOLUTION 30 GM PO (10:15)
[2019-11-06] MEDS: VANCOMYCIN TROUGH 1 REQUEST MISC (10:20)
[2019-11-06 11:06] LABS: Vancomycin Trough 10.3 ug/mL (10-20)
[2019-11-06 13:00] VITALS: BP 113/70; PULSE 100; RESP 18; TEMP 36.6; O2SAT 95
--- NOTE | 2019-11-06 13:36 | PT.IPTN ---
Current Diagnoses Cellulitis of left lower limb (11/05/19) Physical Therapy Treatment Note M2 PT-IP Current Condition Start: 11/05/19 11:21 Freq: NEEDED Status: Active Protocol: Document 11/05/19 11:21 LR (Rec: 11/05/19 11:59 LR [email or web address]) Physical Therapy Current Condition Current Condition Evaluation Date 11/05/19 Treatment Diagnosis pulm ebolism, cellulits LLE, sepsis, difficulty walking Weight Bearing Status Weight Bearing Status Weight Bear as Tolerated M3 PT-IP Subjective Start: 11/05/19 11:21 Freq: NEEDED Status: Active Protocol: Document 11/06/19 12:15 HH (Rec: 11/06/19 13:36 HH [email or web address]) Subjective Physical Therapy Visit Type Type Treatment Note Visit Start Time 12:15 Visit Stop Time 12:36 Total Visit Minutes 21 Number of LONG TERM CARE PHLEBOTOMIST Visits 0 Physical Therapy Visit Comments Patient Comments Pt agreeable to work with thearpy. Reports his abdomen has a lot of pressure and less pain for his L calf. Therapy Pain Assessment Pain When Pain Assessed During Mobility Pain Present Pain Present Pain Reported M4 PT-IP Mobility and Gait Start: 11/05/19 11:21 Freq: NEEDED Status: Active Protocol: Document 11/06/19 12:15 HH (Rec: 11/06/19 13:36 HH [email or web address]) PT-Bed Mobility Assessment Supine to Sit Supine to Sit Standby Assistance,Head of Bed Elevated,Bedrails Scooting Scooting to Edge of Bed Standby Assistance PT-Transfer Assessment Sit to and From Stand Sit to and from Stand Contact Guard Assistance,Use of Upper Extremities Equipment Transfer Assistive Device Gait Belt,Front Wheeled Walker Transfers Transfer Destination Chair Transfer Technique Stand Step Pivot Transfer Ability Level of Assist Contact Guard Assistance Comments Mobility Comments Pt got up from supine with HOB elevated about 30 deg and used bed rails for push off. He scooted EOB afterwards anb able to stand up without AD by pushing off with UEs on bed CGA. Pt then used FWW to stabilize and stood for 30 secs. He amb to room wall and practiced calf stretch and he reports it feels better after stretch. Pt then given a SPC to amb out of the room. He was able to demonstrates reciprocal 2 point gait pattern with SPC on R UE. Pt cont to have slight decreased L step length and R weight shift d/t L calf pain but overall demonstrated safe and WFL gait.He amb half of AC unit and took 3 20 seconds break in between for rest and SpO2 at >95% HR 110s. Pt still has SOB but stated improved symptoms. He then amb back to his bedside chair with legs elevated and call light placed within reach. Gait Assessment Gait Gait Assistance Required: Contact Guard Assist Distance (Feet) 230 Able to Maintain Weight Bearing Status Yes During Gait Assistive Devices Assistive Device Gait Belt,Straight Cane Orthotic/Prosthetic Devices or Brace: No Gait Deviations General Gait Pattern Antalgic,Decreased Stride Length,Flexed Trunk Factors Limiting Gait Function Factors Limiting Gait Function Decreased Activity Tolerance, Decreased Strength,Limited Range of Motion,Pain,Poor Balance Comments Gait Comments see above M5 PT-IP Objective Assessments Start: 11/05/19 11:21 Freq: NEEDED Status: Active Protocol: Document 11/05/19 11:21 [facility] (Rec: 11/05/19 11:59 [facility] [email or web address]) Orientation Orientation/Cognition Level of Alertness Alert Language Function Ability No Deficits Noted Safety Awareness Decreased Safety Awareness Memory Description No Deficits Noted Strength Lower Extremity Strength Assessment Left Impaired M6 PT-IP Treatment Start: 11/05/19 11:21 Freq: NEEDED Status: Active Protocol: Document 11/05/19 11:21 [facility] (Rec: 11/05/19 11:59 [facility] [email or web address]) Physical Therapy Treatment Education Education Provided Safety M7 PT-IP Assessment and Plan Start: 11/05/19 11:21 Freq: NEEDED Status: Active Protocol: Document 11/06/19 12:15 HH (Rec: 11/06/19 13:36 [email or web address]) PT Summary Assessment and Plan Summary Impairments Pain,ROM,Strength,Balance,Bed Mobility,Transfers,Gait, Activity Tolerance Progress Towards Goals Slow Progress due to Pain Assessment Summary Pt showed improved amb distance with a SPC without O2 , along with reduced SOB and fatigue. SpO2 maintained at > 95% HR 110s. during session. His L calf is still warm to touch but improved pain threshold to pressure. Educated pt to cont practice ankle pumps and LE ex. Left pt in chair with legs elevated and call ligth placed within reach. Pt will benefit from d. c home with assistance and outpatient therapy to improve functional mobility and strength. Goals Bed Mobility Goal Independent Transfer Goal Independent Gait Goal Independent Gait Distance 150ft Days to Meet Goals 6 Frequency of Treatment Frequency Of Treatment Once a Day Treatment Plan Physical Therapy Treatment Plan Bed Mobility Training,Transfer Training,Gait Training, Therapeutic Exercise,Balance Retraining,Discharge Planning, Neuromuscular Re-ed Other Recommendations and Next Treatment check vitals, Focus work on gait with SPC/ w/o AD work on ability to do sit<> stand Recommendations To Nursing Amount of Assist Needed Standby Assistance Discharge Recommendations PT Discharge Recommendations Home with Assistance Transportation Needs at Discharge Private Vehicle
--- NOTE | 2019-11-06 14:48 | CM.DPC ---
DCP Cont: Called JEREMIAH Cornejo at [place] in [facility]. Confirmed that patient does have a primary care provider at that clinic named Dr. Campos. She mentioned that he has not seen his provider for 90 days. Confirmed that patient had worked with [facility] before. She stated that if patient needs [facility] again, should be covered, and can just get a face to face. Let her know that this case fitter would follow up with [facility] Called Robin at [facility]. He stated that patient was discharged from [facility] on 10/18. At that time he was getting P.T, and O.T. Stated that patient will need home health again, and would add nursing. Will fax over H&P for him to review. Will also have hospitalist sign a new face to face. P: DCP to continue to follow. Will fax H&P to [facility]. Kirstie Engel RN/Hand Stripper
[2019-11-06 15:49] VITALS: BP 129/76; PULSE 94; RESP 20; TEMP 36.1; O2SAT 95
[2019-11-06 20:48] VITALS: BP 130/73; PULSE 87; RESP 20; TEMP 37.1
[2019-11-06] MEDS: SODIUM CHLORIDE 0.9% FLUSH 10 ML IV (20:52)
[2019-11-06] MEDS: INSULIN GLARGINE 100 UNIT/ML 3ML PEN 20 UNIT SUBCUT (21:12)
[2019-11-06 23:55] VITALS: BP 121/85; PULSE 99; RESP 18; TEMP 37.8; O2SAT 97
[2019-11-07] MEDS: ACETAMINOPHEN 325 MG TABLET 650 MG PO ×4 (01:31→20:59)
[2019-11-07] MEDS: VANCOMYCIN 1,500 MG/300 ML FROZ.PIGGY 200 MG IV ×3 (01:31→17:29)
[2019-11-07 04:00] VITALS: BP 142/90; PULSE 76; RESP 18; TEMP 36.3; O2SAT 95
[2019-11-07 06:19] LABS: Add Manual Diff / Slide Review NO; Basophils Absolute Auto 100 /uL (0-100); Basophils Percent Auto 0.6 % (0-2); Eosinophils Absolute Auto 100 /uL (0-450); Eosinophils Percent Auto 1.3 % (2-4); Hematocrit 35.4 % (41-53); Hemoglobin 12.3 g/dL (13.5-17.5); Lymphocytes Absolute Auto 1700 /uL (1100-4500); Lymphocytes Percent Auto 14.6 % (25-40); Mean Corpuscular HGB Conc 34.9 % (30-36); Mean Corpuscular Hemoglobin 30.2 PG (26-34); Mean Corpuscular Volume 86.5 fL (80-100); Monocytes Absolute Auto 800 /uL (0-900); Monocytes Percent Auto 7.3 % (3-14); Neutrophils Absolute Auto 8800 /uL (1500-7000); Neutrophils Percent Auto 76.2 % (50-75); Platelet Count 313 X10^3/uL (150-400); Red Blood Cell Count 4.09 X10^6/uL (4.5-5.9); Red Cell Distribution Width 12.8 % (11.6-14.8); White Blood Cell Count 11.5 X10^3/uL (4.5-11.0)
[2019-11-07 08:00] VITALS: BP 161/93; PULSE 74; RESP 18; TEMP 36.6; O2SAT 99
[2019-11-07 08:05] VITALS: O2SAT 98
--- NOTE | 2019-11-07 08:07 | P.PN_ITS ---
Subjective Subjective Date Patient Seen: 11/07/19 Interval history: Rom Finch is a 59-year-old male with a past medical history significant for hypertension, diabetes mellitus type 2, insulin using, and [facility] who presented to the ED with worsening left lower extremity pain, erythema and edema. The patient is resting in bed comfortably. He reports low back discomfort overnight in which he did not sleep well. Plan to give him a 1 time dose of tramadol to help with low back pain. 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 Plan for small- bowel follow-through. He continues to appear depressed with emotional lability but overall his spirits are improved. His left lower extremity erythema and edema have improved but his erythema has not substantially retracted from outlined margins. He endorses mild left lower extremity pain that has improved and is absent at rest and only present now when he first stands up. He describes his left lower extremity pain as a burning sensation. He also endorses mild headache. He has no other complaints and denies cough, shortness of breath, chest pain, abdominal pain, nausea, vomiting, fever, chills, dysuria, or diarrhea. He is voiding without difficulty. He is up ambulating with assistance. Exam Vital Signs (past 8 hours): - 11/07/19 04:00 Temperature 97.3 F L Pulse Rate 76 Respiratory Rate 18 Blood Pressure 142/90 H Pulse Oximetry 95 Oxygen Delivery Method Room Air Oxygen Flow Rate 0 Narrative Exam Narrative: General: Middle-aged gentleman sitting on bedside commode, in no acute distress, well-developed, well-nourished, slightly disheveled, depressed mood but appropriately interactive. HEENT: Normocephalic, atraumatic. External ears without defect. Pupils equal, round, and reactive to light. Anicteric sclerae, moist conjunctivae, and no lid lag. Oropharynx free of erythema and cobble stoning with moist mucosa. Edent ulous. Neck: Supple with full range of motion. No lymphadenopathy or thyromegaly. Cardiovascular: Regular rate and rhythm without murmurs, rubs, or gallops appreciated. Pulmonary: Clear to auscultation bilaterally without crackles, wheezes, or rhonchi. Normal respiratory effort with no use of accessory muscles. Abdomen: Soft, bowel sounds present, nontender, mild distention. No hepatosplenomegaly or masses appreciated. Extremities: Mild edema of left lower extremity resolved and skin now appears wrinkled. Erythema and warmth of left lower extremity distally from ankle to knee has improved but has not retracted significantly from outlined margins. No clubbing, cyanosis, or edema of other extremities. Neurological: Cranial nerves grossly intact. Psychiatric: Depressed mood and affect that have improved. Emotionally labile. Alert and oriented to person, place, and time. Objective Labs Result Diagrams: 11/07/19 05:58 11/06/19 05:13 Labs: Laboratory Results - last 24 hr 11/06/19 11/07/19 11/07/19 10:23 05:58 05:58 WBC 11.5 H RBC 4.09 L Hgb 12.3 L Hct 35.4 L MCV 86.5 MCH 30.2 MCHC 34.9 RDW 12.8 Plt Count 313 Neut % (Auto) 76.2 H Lymph % (Auto) 14.6 L [place] % (Auto) 7.3 Eos % (Auto) 1.3 L Baso % (Auto) 0.6 Neut # (Auto) 8800 H Lymph # (Auto) 1700 [place] # (Auto) 800 Eos # (Auto) 100 Baso # (Auto) 100 Magnesium 2.0 Vancomycin Trough 10.3 Assessment & Plan Assessment & Plan narrative: Rom Finch is a 59-year-old male with a past medical history significant for hypertension, diabetes mellitus type 2, insulin using, and recent [facility] who presented to the ED with worsening left lower extremity pain, erythema and edema. 1. Acute sepsis ruled out. -Patient met SIRS criteria including: leukocytosis (WBC 22.4), elevated ESR at 31, elevated CRP of 23.9, febrile (temp 101.0?F), tachycardic (HR 109), tachypnea (RR 28) without hypoxemia. Normal procalcitonin 0.36 and lactic acid of 1.8. No end-organ dysfunction. Infectious source cellulitis. qSOFA score is 1 for tachycardia which may be a function both of PE as well as pain. -Screened for COVID-19 which was negative and ruled out. 2. Acute cellulitis of left lower extremity, present on admission. Improving. -Patient presented with progressive worsening pain, edema and erythema of the l eft lower extremity x 3 days to the extent that he was unable to ambulate. Of, patient recently had left hip left hip replacement and was doing well with rehabilitation. -Venous Doppler ultrasound was negative for DVT. -Initial WBC 22.4 and procalcitonin 0.36. WBC and procalcitonin trending down n ow 11.5 and 0.11 respectively. Continue to monitor WBC and procalcitonin daily. -Received vancomycin with dosing per pharmacist and levofloxacin 750 mg IV x1 in ED. Continue vancomycin with dosing per pharmacist and ceftriaxone 2 g IV daily. Plan to transition to oral antibiotics possibly tomorrow. -Continue conservative measures and elevate extremity above the level of the heart frequently and for as long as tolerated. 3. Acute provoked right lower lobe pulmonary emboli, present on admission. Active. -Patient with decreased mobility following left hip replacement and was [facility] on [facility]. He continued PT until October when it was discontinued secondary to COVID-19 pandemic. Patient has attempted to keep up exercises but has decreased mobility related to pain for the last 3 days. -Patient reports shortness of breast for 3 days with associated cough worse yesterday improved today. -CTA chest demonstrated pulmonary emboli in right lower lobe segmental and subsegmental pulmonary artery. PE provoked related to recent surgery of left leg and infection. -Continue therapeutic Lovenox 105 mg subcutaneously twice daily. Plan to switch patient to NOAC prior to discharge. 4. Diabetes mellitus type 2, insulin using, uncontrolled, chronic, present on admission, active -Hemoglobin A1c 7.3% indicative of fair glycemic control. -Continue ACHS blood glucose checks and medium dose correction scale insulin. -Continue home Lantus increased from 18 units to 20 units twice daily for tighter glycemic control. -Continue carbohydrate consistent/heart healthy diet. 5. Constipation with mild abdominal distension, acute on chronic, present on admission. Resolved. -Patient complains of abdominal distension increasing over the last 3 days with last bowel movement 2 days ago that was hard and difficult to pass. -CT abdomen and pelvis with contrast demonstrated significant stool burden. -Received Doculax suppository x1, mineral oil enema x1 and lactulose 30 g x 1. Continue bowel regimen with Colace 100 mg twice daily and MiraLax 17 g daily. -Ordered small-bowel follow-through diagnostic purposes to assess for ileus/fecal impaction and likely therapeutic. 6. Hypertension, chronic, present on admission. Stable. -Continue home amlodipine 5 mg daily and lisinopril 40 mg daily. 7. Recent left hip replacement, present on admission. Stable. -Patient had a previous dynamic hip screw placement for a proximal femur fracture 10 years ago which is removed on August 10 in anticipation of total hip replacement. The patient had developed a non-traumatic intertrochanteric femoral fracture identified on 08/18/2019 and underwent a left total hip arthroplasty with a prophylactic lateral femoral plate fixation. -Patient was discharged from the hospital on 08/31 with home physical therapy. This was discontinued in October related to COVID-19 restrictions. 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 -Patient attempted to continue exercise and was told he was allowed to weight bear but has been unable to weight bear on the left leg related to pain for the last several days. -Continue acetaminophen 650 mg every 4 hours as needed for mild pain. -Continue physical therapy evaluation and treatment. Occupational therapy has signed off as the patient has no need. 8. Acute urinary retention, present on admission. Resolved. -Patient reports no difficulty with urination, frequency, urgency or hematuria. Urinalysis is negative for infection. -CT abdomen and pelvis with contrast demonstrated distended bladder and no notation made of enlarged prostate. Patient has been unable to void and a Márquez catheter was placed in the ED. Márquez catheter was later removed and patient has been able to void without difficulty. Code status: FULL CODE, the patient designates his brother Young to be his surrogate decision maker. VTE prophylaxis: Therapeutic Lovenox at 1 mg/kg twice daily Disposition: Patient likely to discharge home with home health in possibly tomorrow if cellulitis continues to improve. Quality VTE Deep Vein Thrombosis/Pulmonary Embolism Present on Admission: No
[2019-11-07] MEDS: ENOXAPARIN 60 MG/0.6 ML SYRINGE 105 MG SUBCUT ×2 (08:33→20:58)
[2019-11-07] MEDS: CEFTRIAXONE 2 GM/50 ML FROZ.PIGGY IV (08:33)
[2019-11-07] MEDS: DOCUSATE 100 MG CAPSULE 200 MG PO (08:33)
[2019-11-07] MEDS: SODIUM CHLORIDE 0.9% FLUSH 10 ML IV ×3 (08:34→21:01)
[2019-11-07] MEDS: lisinopriL 20 MG TABLET 40 MG PO (08:34)
[2019-11-07] MEDS: polyethylene glycoL 3350 17 GM POWD.PACK PO (08:34)
[2019-11-07] MEDS: AMLODIPINE 5 MG TABLET PO (08:34)
[2019-11-07] MEDS: INSULIN GLARGINE 100 UNIT/ML 3ML PEN 20 UNIT SUBCUT ×2 (08:37→20:59)
[2019-11-07 08:48] LABS: Procalcitonin 0.11 ng/mL (<0.5)
--- NOTE | 2019-11-07 11:03 | PT.IPTN ---
Current Diagnoses Cellulitis of left lower limb (11/05/19) Physical Therapy Treatment Note M2 PT-IP Current Condition Start: 11/05/19 11:21 Freq: NEEDED Status: Active Protocol: Document 11/05/19 11:21 [facility] (Rec: 11/05/19 11:59 [facility] [email or web address]) Physical Therapy Current Condition Current Condition Evaluation Date 11/05/19 Treatment Diagnosis pulm ebolism, cellulits LLE, sepsis, difficulty walking Weight Bearing Status Weight Bearing Status Weight Bear as Tolerated M3 PT-IP Subjective Start: 11/05/19 11:21 Freq: NEEDED Status: Active Protocol: Document 11/07/19 09:45 HH (Rec: 11/07/19 11:03 HH [email or web address]) Subjective Physical Therapy Visit Type Type Treatment Note Visit Start Time 09:45 Visit Stop Time 10:05 Total Visit Minutes 20 Number of FOOD SERVICE EMPLOYEE Visits 0 Physical Therapy Visit Comments Patient Comments Pt agreeable to work with thearpy. Reports less pain on L calf but increased back pain since last night. Pt amb with nursing staff multiple times last night with SPC. Therapy Pain Assessment Pain When Pain Assessed During Mobility Pain Present Pain Present Pain Reported M4 PT-IP Mobility and Gait Start: 11/05/19 11:21 Freq: NEEDED Status: Active Protocol: Document 11/07/19 09:45 HH (Rec: 11/07/19 11:03 HH [email or web address]) PT-Bed Mobility Assessment Supine to Sit Supine to Sit Standby Assistance Scooting Scooting to Edge of Bed Standby Assistance PT-Transfer Assessment Sit to and From Stand Sit to and from Stand Standby Assistance,Use of Upper Extremities Equipment Transfer Assistive Device Gait Belt Transfers Transfer Destination Chair Transfer Technique Stand Step Pivot Transfer Ability Level of Assist Standby Assistance,Use of Upper Extremities Comments Mobility Comments Pt was in bed upon PT arrival. He was able to get up from supine without using bedrails but slowly d/t his back pain. He then stood up by pushing off through UEs on bed. Pt grabbed SPC and started amb from his room to hallway. He demonstrated improved weight acceptance on L side and improved step length and gait speed. He amb 2.5 laps for the entire AC unit with SPC SBA. Pt did not need rest break but appears to mild SOB towards the end of session. HR maintained at 100s with SpO2 > 95%. He returned to bed after with SBA, bed alarm activated and call ligth placed within reach. Gait Assessment Gait Gait Assistance Required: Standby Assistance Distance (Feet) 650 Able to Maintain Weight Bearing Status Yes During Gait Assistive Devices Assistive Device Gait Belt,Straight Cane Orthotic/Prosthetic Devices or Brace: No Gait Deviations General Gait Pattern Antalgic,Decreased Stride Length,Flexed Trunk Factors Limiting Gait Function Factors Limiting Gait Function Decreased Activity Tolerance, Decreased Strength,Limited Range of Motion,Pain,Poor Balance Comments Gait Comments see above M5 PT-IP Objective Assessments Start: 11/05/19 11:21 Freq: NEEDED Status: Active Protocol: Document 11/05/19 11:21 [facility] (Rec: 11/05/19 11:59 [facility] [email or web address]) Orientation Orientation/Cognition Level of Alertness Alert Language Function Ability No Deficits Noted Safety Awareness Decreased Safety Awareness Memory Description No Deficits Noted Strength Lower Extremity Strength Assessment Left Impaired M6 PT-IP Treatment Start: 11/05/19 11:21 Freq: NEEDED Status: Active Protocol: Document 11/05/19 11:21 [facility] (Rec: 11/05/19 11:59 [facility] [email or web address]) Physical Therapy Treatment Education Education Provided Safety M7 PT-IP Assessment and Plan Start: 11/05/19 11:21 Freq: NEEDED Status: Active Protocol: Document 11/07/19 09:45 [facility] (Rec: 11/07/19 11:03 [facility] [email or web address]) PT Summary Assessment and Plan Potential Rehabilitation Potential Good Status of Condition at Evaluation Evolving Summary Impairments Pain,ROM,Strength,Balance,Bed Mobility,Transfers,Gait, Activity Tolerance Progress Towards Goals Progressing Toward Goals Assessment Summary Pt's L calf is less tender to touch and pressure today, and not as warm to touch as well. He shows improved amb distance and physical endurance without taking rest break. HR stays 100s, SpO2> 95%. Pt will cont to benefit from therapy to progress pt to amb without AD. Communicated with Dr. Saravia and JAYY this am that patient will benefit from home health therapy and nursing care to monitor his infection and blood clot situation. Pt also has concerns about COVID if participating outpatient PT . Goals Bed Mobility Goal Independent Transfer Goal Independent Gait Goal Independent Gait Distance 700 Other Goals without AD Days to Meet Goals 6 Frequency of Treatment Frequency Of Treatment Once a Day Treatment Plan Physical Therapy Treatment Plan Bed Mobility Training,Transfer Training,Gait Training, Therapeutic Exercise,Balance Retraining,Discharge Planning, Neuromuscular Re-ed Other Recommendations and Next Treatment check vitals, Focus work on gait with SPC/ w/o AD work on ability to do sit<> stand Recommendations To Nursing Amount of Assist Needed Standby Assistance Discharge Recommendations PT Discharge Recommendations Home with Assistance,Home Health Transportation Needs at Discharge Private Vehicle
--- NOTE | 2019-11-07 11:15 | DI.RAD.S_ITS ---
PROCEDURE: FL SMALL BOWEL FOLLOW THROUGH INDICATIONS: Fecal impaction/ileus versus severe constipation COMPARISON: None. FINDINGS: KUB: Preprocedural resident service coordinator film demonstrates a normal bowel gas pattern. No suspicious abdominal calcifications. Visualized solid organ contours appear normal. No suspicious bony abnormalities. Status post left hip arthroplasty. Moderate degenerative changes of the right hip. Small bowel: There is normal transit time of barium through the small bowel. Small bowel loops are of normal caliber throughout. Mucosal folds are smooth and of normal thickness. No strictures, intraluminal masses, or extrinsic mass effects are noted. The terminal ileum is identified, and is normal in morphology. Additionally, ingested or contrast is noted to transit through the colon. The patient also had a large bowel movement at the end of the study. IMPRESSION: Unremarkable small bowel follow-through. No evidence for obstruction or constipation. Dictated by: Carson Levin M.D. on 11/07/2019 at 16:22 Approved by: Carson Levin M.D. on 11/07/2019 at 16:24
--- NOTE | 2019-11-07 11:15 | OT.IP.TRT ---
Current Diagnoses Cellulitis of left lower limb (11/05/19) Occupational Therapy Treatment Note M2 OT-IP Current Condition Start: 11/06/19 10:03 Freq: Status: Active Protocol: Document 11/06/19 10:03 [facility] (Rec: 11/06/19 10:22 [facility] [id number]) Occupational Therapy Current Condition Current Condition Evaluation Date 11/06/19 Treatment Diagnosis LLE cellulitis Diagnosis Onset Date 11/05/19 Post Operative Precautions Posterior Hip Precautions No Hip Flexion > 90 degrees,No Hip Internal Rotation,No Hip Adduction Other Precautions Per pt due to hip sx in August still following hip precautions. Weight Bearing Status Weight Bearing Status Weight Bear as Tolerated M3 OT- IP Subjective and Pain Start: 11/06/19 10:03 Freq: Status: Active Protocol: Document 11/07/19 11:07 [facility] (Rec: 11/07/19 11:15 [facility] [id number]) OT- Subjective Occupational Therapy Visit Type Type Treatment Note Visit Start Time 10:31 Visit Stop Time 10:55 Total Visit Minutes 24 Occupational Therapy Visit Comments Patient Comments Pt awoken for a nap and agreeable to get up to do OT treatment. Patient/Caregiver Goals To go home. OT Pain Assessment Pain When Pain Assessed At Rest Pain Present Pain Present Denied Pain M5 OT- IP IADL's Start: 11/06/19 10:03 Freq: Status: Active Protocol: Document 11/07/19 11:07 [facility] (Rec: 11/07/19 11:15 [facility] [id number]) OT-Instrumental Activities of Daily Living Deficits IADL Deficits Identified Deficits Home Safety Awareness Awareness of Need for Assistance at Home Good Awareness Ability to Problem Solve Emergency Able to Problem Solve Situations M6 OT- IP Functional Cognition Start: 11/06/19 10:03 Freq: Status: Active Protocol: Document 11/07/19 11:07 [facility] (Rec: 11/07/19 11:15 [facility] [id number]) Cognitive Factors Limiting Selfcare Function Cognitive Ability Level of Alertness Alert Patient Orientation Name,Month,Year,Day of Week, Place,Situation Attention Span Ability Capable of Focused Attention, Capable of Sustained Attention Ability to Follow Commands Able to Follow Multi-Step Commands Memory Description No Deficits Noted Safety Awareness No Deficits Noted Cognitive Comments Cognitive Assessment Comments Pt appears at baseline. Pt having brighter affect today. Pt able to follow multiple commands and sequence through take on changing out the sheets on his bed. M7 OT- IP Mobility and Balance Start: 11/06/19 10:03 Freq: Status: Active Protocol: Document 11/07/19 11:07 [facility] (Rec: 11/07/19 11:15 [facility] [id number]) OT- Bed Mobility Assessment Supine to Sit Supine to Sit Assist Independent,Head of Bed Elevated Sit to Supine Sit to Supine Assist Independent,Head of Bed Elevated OT-Transfer Assessment Sit to and From Stand Sit to and from Stand Independent Transfers Transfer Ability Independent Technique Transfer Destination Bed Devices Transfer Assistive Devices None Comments Mobility Comments Pt able to independently move in the room also with good management of moving his IV pole. OT- Gait Assessment Gait Gait Assistance Required: Independent Comments Gait Ability Comments Pt good safety to move independently in the room. Still encouraged pt to call for assist especially when IV attached. OT- Balance Assessment Sitting Balance and Reactions Static Sitting Balance Ability Normal Dynamic Sitting Balance Ability Normal Standing Balance and Reactions Static Standing Balance Ability Normal Dynamic Standing Balance Ability Good M8 OT- IP Objective Assessments Start: 11/06/19 10:03 Freq: Status: Active Protocol: Document 11/06/19 10:03 [facility] (Rec: 11/06/19 10:22 [facility] [id number]) OT Gross Range of Motion Upper Extremity Range of Motion Assessment Within Functional Limits OT Strength Upper Extremity Strength Assessment Within Functional Limits M9 OT- IP Assessment and Plan Start: 11/06/19 10:03 Freq: Status: Active Protocol: Document 11/07/19 11:07 [facility] (Rec: 11/07/19 11:15 [facility] [id number]) OT Summary Assessment and Plan Potential Rehabilitation Potential Excellent Analytic Complexity at Evaluation Low Summary Progress Towards Goals Goals Met Assessment Summary Pt able to meet goals for OT. Pt able to independently make his bed today and will have assist at home if needed. Pt has all equipment needs at home. Therefore discharge pt from Ot services. Frequency of Treatment Frequency Of Treatment Discharge Discharge Recommendations OT Discharge Recommendations Home,Home Health Home Equipment Needs Pt has all needs at home. Transportation Needs at Discharge Private Vehicle
[2019-11-07 12:00] VITALS: BP 143/73; PULSE 84; RESP 18; TEMP 36.4; O2SAT 96
[2019-11-07] MEDS: INSULIN ASPART 100 UNIT/ML INSULN PEN SUBCUT ×3 (12:34→21:00)
[2019-11-07] MEDS: TRAMADOL 50 MG TABLET 100 MG PO (12:35)
[2019-11-07 15:45] VITALS: BP 120/71; PULSE 94; RESP 18; TEMP 36.5; O2SAT 97
[2019-11-07] MEDS: SODIUM CHLORIDE 0.9% 250 ML 21 ML IV (17:31)
[2019-11-07 20:07] VITALS: BP 126/53; PULSE 80; RESP 18; TEMP 36.7; O2SAT 96
--- NOTE | 2019-11-07 21:30 | PC.NURSE ---
Assumed care of pt at 1500. Pt in bed have small bowel follow-through during hand-off report. Up to bathroom with loose stools since completion drinking contrast. If Vanco completed upon completion of final flush leaking and bleeding noted from R. AC IV insertion site. IV removed. Gauze drsg applied. Noted firm bulge of normal temperature and color to medial AC. Pt denies pain or tenderness and states I would not have noticed it if I didn't feel wetness. Ice pack applied to the area and advised pt to notify staff if any discoloration or pain occurs. New IV inserted to R. AC. Pt tolerated procedure well.
[2019-11-08 00:45] VITALS: BP 120/76; PULSE 92; RESP 15; TEMP 36.7; O2SAT 95
--- NOTE | 2019-11-08 00:54 | PC.NURSE ---
Addendum entered by Xin Mcknight R.N. 11/08/19 06:36: Weight noted to be down 4.3kg this morning. Bed rezeroed and weight verified with chair scale. Natalio BLANCHARD, informed. Addendum entered by Xin Mcknight R.N. 11/08/19 02:13: Denies pain but requests Tylenol for pain management as reports pain got out of hand last night and doesn't want that to happen again. Original Note: Patient is alert and oriented. Breath sounds diminished throughout; RA sat is 95%. HRR with telemetry reading of SR w/BBB. Denies nausea. Loose stools on previous shift related to SBFT of yesterday; none so far this shift. Voiding per urinal; denies dysuria, frequency or urgency. Is able to move himself in bed. Left LE is erythemic, warm and swollen; redness seems to be extending down further toward ankle from initial markings so new markings made. No open areas or drainage noted. Does have left LE elevated on several pillows. Denies pain at present time. Declines to wear SCD's so discussed with Natalio BLANCHARD, who states they can be d'cd. Gait not currently assessed but reports he is up with SBA + cane and denies feeling weak or unsteady. Fall risk score is high and bed alarm is activated.
[2019-11-08] MEDS: VANCOMYCIN 1,500 MG/300 ML FROZ.PIGGY 200 MG IV ×2 (02:08→09:50)
[2019-11-08] MEDS: ACETAMINOPHEN 325 MG TABLET 650 MG PO (02:09)
[2019-11-08] MEDS: SODIUM CHLORIDE 0.9% FLUSH 10 ML IV ×2 (02:09→08:38)
[2019-11-08 05:42] VITALS: BP 152/79; PULSE 90; RESP 16; TEMP 37.1; O2SAT 95
[2019-11-08 06:10] LABS: BUN Creatinine Ratio 19.1 (6-22); Blood Urea Nitrogen 13 mg/dL (9-20); Calcium 8.8 mg/dL (8.4-10.2); Carbon Dioxide 28 mmol/L (22-32); Chloride 102 mmol/L (98-107); Estimated Glomerular Filt Rate > 60.0 mL/min (>60); Glucose 146 mg/dL (70-100); HEMOLYSIS < 15 (0-50); Magnesium 2.2 mg/dL (1.6-2.3); Sodium 138 mmol/L (137-145)
[2019-11-08 06:13] LABS: Add Manual Diff / Slide Review NO; Basophils Absolute Auto 0 /uL (0-100); Basophils Percent Auto 0.5 % (0-2); Eosinophils Absolute Auto 200 /uL (0-450); Eosinophils Percent Auto 2.9 % (2-4); Hematocrit 38.5 % (41-53); Hemoglobin 13.6 g/dL (13.5-17.5); Lymphocytes Absolute Auto 1500 /uL (1100-4500); Lymphocytes Percent Auto 18.4 % (25-40); Mean Corpuscular HGB Conc 35.3 % (30-36); Mean Corpuscular Hemoglobin 30.7 PG (26-34); Mean Corpuscular Volume 86.8 fL (80-100); Monocytes Absolute Auto 500 /uL (0-900); Monocytes Percent Auto 6.3 % (3-14); Neutrophils Absolute Auto 5700 /uL (1500-7000); Neutrophils Percent Auto 71.9 % (50-75); Platelet Count 353 X10^3/uL (150-400); Red Blood Cell Count 4.43 X10^6/uL (4.5-5.9); Red Cell Distribution Width 12.7 % (11.6-14.8)
[2019-11-08 06:29] LABS: Procalcitonin 0.06 ng/mL (<0.5)
[2019-11-08 07:32] VITALS: BP 139/79; PULSE 97; RESP 18; TEMP 36; O2SAT 95
--- NOTE | 2019-11-08 08:21 | P.DS_ITS ---
History of Present Illness History of Present Illness Date Patient Seen: 11/05/19 Chief complaint: ankles swelling,can't walk/ cough,SOB,fever Narrative: Written by Giorgi BLANCHARD: Mr. Rom Finch is a 59-year-old male with a history significant for insulin-dependent diabetes type 2, hypertension, recent left hip surgery being [facility] [place]2019 who presents to the hospital with worsening left lower extremity pain. The patient develops redness swelling on the left lower leg that has been been progressive with redness and swelling for 3 days. The patient reports that since discharge from the hospital he had been worked with PT until October and since then he has been on his own with PT discontinued related to COVID-19 restrictions. Patient states he has been weight-bearing but could no longer do so for the last 3 days secondary to pain. During the same time the patient reports developing associated bifrontal headache, fevers, weakness, nausea without vomiting and cough. He reports no complaints of visual changes, dizziness dysphagia or dysarthria but has had nasal congestion but no sore throat. He complains of difficulty taking a deep breath related to abdominal distension which too has increased over 3 days. He states his last bowel movement was 2 days ago and was hard and difficult to pass. He reports no rectal bleeding. He indicates he has no difficulty urination and has not noticed an increase in frequency. He has been compliant with his diabetic medications and diet. Upon arrival to the ER the patient is found to be febrile 101.0?, tachycardic at 1:09 a.m., blood pressure 122/75, respiratory rate of 28 saturating 98% on room air. Patient undergoes imaging with a ultrasound of the left lower extremity which is negative for DVT. He further undergoes a CTA which finds acute segmental pulmonary emboli within the right lower lobe and no evidence of right ventricular strain. A CT of the abdomen and pelvis with contrast identifies small liver cysts, bilateral renal cysts, gallbladder in solid organs otherwise unremarkable, moderate stool without bowel obstruction, left hip arthroplasty with prominent plate and screw fixation of old left femur fracture, severe right hip degenerative changes. On laboratory analysis the patient is found have a white count of 22.4, hemoglobin of 12.9, hematocrit of 37.5 and platelets of 317. On chemistry has a sodium of 129 and chloride of 94, potassium of 4.7, BUN of 14 and creatinine of 0.76. His an elevated glucose of 289. His a total bilirubin of 0.6, AST of 22, ALT of 17 and alkaline phosphatase of 80. He has an LDH of 393. Has lactic acid of 1.8, procalcitonin of 0.36, CRP elevated at 23.9 and is he has are of 31. His D-dimer is 860. In the ER the patient is given sepsis bolus with lactated Ringer's at 30 mL/kilos. Is also administered Levaq uin 750 mg as well as vancomycin 2 g IV. He is anticoagulated with Lovenox 1 milligram/kilogram for 105 mg subcutaneously. The patient is admitted to the medicine service for sepsis related to cellulitis with secondary pulmonary emboli and hyperglycemia. Discharge Providers Provider Date of admission: 11/05/19 00:47 Discharge Date: 11/08/19 Consults: 11/05/19 00:44 Consult to Dietitian, Adult Routine Comment: Reason For Exam: Uncontrolled diabetes, obesity Consult to Occupational Therapy Evaluate & Treat Comment: PE, sepsis, LLE surgery 08/2019 Physician Instructions: Evaluate and treat 11/05/19 00:47 Consult to Physical Therapy Evaluate & Treat Comment: PE, sepsis, LLE surgery 08/2019 Physician Instructions: Evaluate and Treat 11/05/19 00:51 Consult to Respiratory Therapy Evaluate & Treat Comment: Pulmonary embolism Physician Instructions: Evaluate and treat Discharge provider: Nhi Saravia DO Summary Hospital Course Discharge Diagnosis: 1. Acute sepsis ruled out. 2. Acute cellulitis of left lower extremity, present on admission. Resolving. 3. Acute provoked right lower lobe pulmonary emboli, present on admission. Resolving. 4. Diabetes mellitus type 2, insulin using, chronic, present on admission. Stable. 5. Constipation with mild abdominal distension, acute on chronic, present on admission. Resolved. 6. Hypertension, chronic, present on admission. Stable. 7. Recent left hip replacement, present on admission. Stable. 8. Acute urinary retention, present on admission. Resolved. Hospital Course: Rom Finch is a 59-year-old male with a past medical history significant for hypertension, diabetes mellitus type 2, insulin using, and recent left hip replacement [facility]2019 who presented to the ED with worsening left lower extremity pain, erythema and edema. 1. Acute sepsis ruled out. -Patient met SIRS criteria including: leukocytosis (WBC 22.4), elevated ESR at 31, elevated CRP of 23.9, febrile (temp 101.0?F), tachycardic (HR 109), tachypnea (RR 28) without hypoxemia. Normal procalcitonin 0.36 and lactic acid of 1.8. No end-organ dysfunction. Infectious source cellulitis. qSOFA score is 1 for tachycardia which may be a function both of PE as well as pain. -Screened for COVID-19 which was negative and ruled out. 2. Acute cellulitis of left lower extremity, present on admission. Resolving. -Patient presented with progressive worsening pain, edema and erythema of the left lower extremity x 3 days to the extent that he was unable to ambulate. Of, patient recently had left hip left hip replacement and was doing well with rehabilitation. -Venous Doppler ultrasound was negative for DVT. -Initial WBC 22.4 and procalcitonin 0.36. WBC and procalcitonin trending down now 11.5 and 0.11 respectively. Continue to monitor WBC and procalcitonin daily. -Received vancomycin with dosing per pharmacist and levofloxacin 750 mg IV x1 in ED. Continued vancomycin with dosing per pharmacist and ceftriaxone 2 g IV daily. Discharged on Keflex 500 mg 3 times daily and doxycycline 100 mg twice daily for 7 additional days to complete a total of 10 day course of antibiotic treatment. -Continued conservative measures and elevate extremity above the level of the heart frequently and for as long as tolerated. 3. Acute provoked right lower lobe pulmonary emboli, present on admission. Resolving. -Patient with decreased mobility following [facility] He continued PT until October when it was discontinued secondary to COVID-19 pandemic. Patient has attempted to keep up exercises but has decreased mobility related to pain for the last 3 days. -Patient reports shortness of breast for 3 days with associated cough worse yesterday improved today. -CTA chest demonstrated pulmonary emboli in right lower lobe segmental and subsegmental pulmonary artery. PE provoked related to recent surgery of left leg and infection. -Echocardiogram demonstrated mildly increased concentric LV thickness and mildly reduced systolic function EF 45-50%, normal RV size and function, and no significant valvular abnormalities. -Continued therapeutic Lovenox 105 mg subcutaneously twice daily. Discharged on Eliquis 5 mg twice daily for 3 months to treat provoked RLL PE. 4. Diabetes mellitus type 2, insulin using, chronic, present on admission. Stable. -Hemoglobin A1c 7.3% indicative of fair glycemic control. -Continued [facility] blood glucose checks and medium dose correction scale insulin. -Continued home Lantus increased from 18 units to 20 units twice daily for tighter glycemic control while patient had acute infection. Discharged on home dose of Lantus 18 units twice daily and restarted oral antihyperglycemics glipizide 10 mg twice daily and metformin 1000 mg twice daily -Continued carbohydrate consistent/heart healthy diet. 5. Constipation with mild abdominal distension, acute on chronic, present on admission. Resolved. -Patient complains of abdominal distension increasing over the last 3 days with last bowel movement 2 days ago that was hard and difficult to pass. -CT abdomen and pelvis with contrast demonstrated significant stool burden. -Received Doculax suppository x1, mineral oil enema x1 and lactulose 30 g x 1. Continued bowel regimen with Colace 100 mg twice daily and MiraLax 17 g daily. -Performed small-bowel follow-through which was normal and therapeutic with several BM's and resolution of constipation. 6. Hypertension, chronic, present on admission. Stable. -Continued home amlodipine 5 mg daily and lisinopril 40 mg daily. 7. Recent left hip replacement, present on admission. Stable. -Patient had a previous dynamic hip screw placement for a proximal femur fracture 10 years ago which is removed on August 10 in anticipation of total hip replacement. The patient had developed a non-traumatic intertrochanteric femoral fracture identified on 08/18/2019 and underwent a left total hip arthroplasty with a prophylactic lateral femoral plate fixation. -Patient was discharged from the hospital on 08/31 with home physical therapy. This was discontinued in October related to COVID-19 restrictions. 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 -Patient attempted to continue exercise and was told he was allowed to weight bear but has been unable to weight bear on the left leg related to pain for the last several days. -Continued acetaminophen 650 mg every 4 hours as needed for mild pain. -Continued physical therapy evaluation and treatment. Occupational therapy has signed off as the patient has no need. 8. Acute urinary retention, present on admission. Resolved. -Patient reports no difficulty with urination, frequency, urgency or hematuria. Urinalysis is negative for infection. -CT abdomen and pelvis with contrast demonstrated distended bladder and no notation made of enlarged prostate. Patient has been unable to void and a Márquez catheter was placed in the ED. Márquez catheter was later removed and patient has been able to void without difficulty. Exam Vital Signs (past 8 hours): - 11/08/19 00:45 11/08/19 05:42 11/08/19 07:32 Temperature 98.1 F 98.8 F 96.8 F L Pulse Rate 92 H 90 97 H Respiratory Rate 15 16 18 Blood Pressure 120/76 152/79 H 139/79 Pulse Oximetry 95 95 95 Oxygen Delivery Method Room Air Oxygen Flow Rate 0 Narrative Exam Narrative: General: Middle-aged gentleman sitting on bedside commode, in no acute distress, well-developed, well-nourished, depressed mood but appropriately interactive. HEENT: Normocephalic, atraumatic. External ears without defect. Pupils equal, round, and reactive to light. Anicteric sclerae, moist conjunctivae, and no lid lag. Oropharynx free of erythema and cobble stoning with moist mucosa. Edentulous. Neck: Supple with full range of motion. No lymphadenopathy or thyromegaly. Cardiovascular: Regular rate and rhythm without murmurs, rubs, or gallops appreciated. Pulmonary: Clear to auscultation bilaterally without crackles, wheezes, or rhonchi. Normal respiratory effort with no use of accessory muscles. Abdomen: Soft, bowel sounds present, nontender, mild distention. No hepatosplenomegaly or masses appreciated. Extremities: Mild edema of left lower extremity resolved and skin now appears wrinkled. Erythema and warmth of left lower extremity distally from ankle to knee resolving and now retracting within outlined margins. No clubbing, cyanosis, or edema of other extremities. Neurological: Cranial nerves grossly intact. Psychiatric: Depressed mood and affect. Emotionally labile. Alert and oriented to person, place, and time. Objective Labs Result Diagrams: 11/08/19 05:39 11/08/19 05:39 Labs: Laboratory Results - last 24 hr 11/07/19 11/08/19 11/08/19 05:58 05:39 05:39 WBC 8.0 RBC 4.43 L Hgb 13.6 Hct 38.5 L MCV 86.8 MCH 30.7 MCHC 35.3 RDW 12.7 Plt Count 353 Neut % (Auto) 71.9 Lymph % (Auto) 18.4 L [place] % (Auto) 6.3 Eos % (Auto) 2.9 Baso % (Auto) 0.5 Neut # (Auto) 5700 Lymph # (Auto) 1500 [place] # (Auto) 500 Eos # (Auto) 200 Baso # (Auto) 0 Sodium Potassium Chloride Carbon Dioxide BUN Creatinine Estimated GFR BUN/Creatinine Ratio Glucose Calcium Magnesium Procalcitonin 0.11 0.06 11/08/19 05:39 WBC RBC Hgb Hct MCV MCH MCHC RDW Plt Count Neut % (Auto) Lymph % (Auto) [place] % (Auto) Eos % (Auto) Baso % (Auto) Neut # (Auto) Lymph # (Auto) [place] # (Auto) Eos # (Auto) Baso # (Auto) Sodium 138 Potassium 4.0 Chloride 102 Carbon Dioxide 28 BUN 13 Creatinine 0.68 Estimated GFR > 60.0 BUN/Creatinine Ratio 19.1 Glucose 146 H Calcium 8.8 Magnesium 2.2 Procalcitonin Discharge Plan Discharge Plan Patient Disposition: Home Health Service Discharge comment: You are being discharged home with home health for physical therapy. You have cellulitis of your left lower extremity and a blood clot in your lung due to immobilization. You have been prescribed Keflex 500 mg three times daily and doxycycline 100 mg twice daily for 7 days to complete a total of 10 days of antibiotic treatment. Please continue to elevate your left lower ext remity higher than the level of your heart frequently and as long as tolerated. You have been prescribed a blood thinner called Eliquis 5 mg twice daily (first dose tonight) to take for 3 months to treat the blood clot in your lung. You have been provided a coupon card for one free month and a discount program of $10 a month thereafter if you qualify. Please follow-up with your [facility] provider [facility] in the next 1 week regarding your hospitalization for cellulitis and pulmonary embolism. Discharge orders & Medications Prescriptions: New docusate sodium [DOK] 100 mg Capsule 200 mg PO BID PRN (Reason: Constipation) Qty: 60 RF: 0 doxycycline hyclate 100 mg capsule 100 mg PO BID Qty: 14 RF: 0 cephalexin [Keflex] 500 mg capsule 500 mg PO TID Qty: 21 RF: 0 Eliquis 5 mg tablet 5 mg PO BID Qty: 60 RF: 2 Continued glipizide 10 mg Tablet 10 mg PO BID RF: 0 amlodipine 5 mg Tablet 5 mg PO DAILY RF: 0 insulin glargine 18 units SUBCUT BID RF: 0 lisinopril 40 mg PO DAILY RF: 0 metformin 500 mg tablet 1,000 mg PO BID RF: 0 polyethylene glycol 3350 17 g PO BID PRN (Reason: Constipation) RF: 0 Diet/Activity/Treatments Diet: Carb-consistent/Diabetic, Low-fat, Low-sodium and Low-cholesterol Activity: Activity as tolerated with cane and physical therapy Visit Report/Discharge Packet Instructions: DI for Cellulitis -- Adult, DI for Pulmonary Embolism, How To Perform RICE (Rest, Ice, Compress, Elevate), How to Prevent Falls, Apixaban, How to Use Antibiotics Wisely Visit Report Forms: Patient Portal/API, Stroke Signs & Symptoms Quality VTE Deep Vein Thrombosis/Pulmonary Embolism Present on Admission: No
[2019-11-08] MEDS: INSULIN GLARGINE 100 UNIT/ML 3ML PEN 20 UNIT SUBCUT (08:29)
[2019-11-08] MEDS: SODIUM CHLORIDE 0.9% 250 ML 21 ML IV (08:37)
[2019-11-08] MEDS: CEFTRIAXONE 2 GM/50 ML FROZ.PIGGY IV (08:37)
[2019-11-08] MEDS: AMLODIPINE 5 MG TABLET PO (08:41)
[2019-11-08] MEDS: ENOXAPARIN 60 MG/0.6 ML SYRINGE 105 MG SUBCUT (08:41)
[2019-11-08] MEDS: lisinopriL 20 MG TABLET 40 MG PO (08:42)
--- NOTE | 2019-11-08 08:57 | PC.NURSE ---
Addendum entered by Yasmine Garcia R.N. 11/08/19 15:32: Discharge summary packet reviewed with pt. [facility] Pt request this RN to fax [facility] in [place] his 4 prescriptions. Pt has [address] Saravia. Pt states has all belongings. No further voiced concerns. Pt left unit at 1235 via wheelchair in no distress with [employer] escort. Pt's brother was picking pt up at ED entrance. Original Note: Day Shift- Per pharmacy and Dr. Saravia, vanco trough at 0930 cancelled as pt is discharging home and receiving last dose of Vancomyocin at 1000.
[2019-11-08 11:50] VITALS: BP 148/79; PULSE 87; RESP 16; TEMP 36.3; O2SAT 96
--- NOTE | 2019-11-08 12:21 | PT.IPTN ---
Current Diagnoses Cellulitis of left lower limb (11/05/19) Physical Therapy Treatment Note M2 PT-IP Current Condition Start: 11/05/19 11:21 Freq: NEEDED Status: Active Protocol: Document 11/05/19 11:21 [facility] (Rec: 11/05/19 11:59 [facility] [id number]) Physical Therapy Current Condition Current Condition Evaluation Date 11/05/19 Treatment Diagnosis pulm ebolism, cellulits LLE, sepsis, difficulty walking Weight Bearing Status Weight Bearing Status Weight Bear as Tolerated M3 PT-IP Subjective Start: 11/05/19 11:21 Freq: NEEDED Status: Active Protocol: Document 11/08/19 12:10 AW (Rec: 11/08/19 12:21 AW [id number]) Subjective Physical Therapy Visit Type Type Treatment Note Visit Start Time 10:52 Visit Stop Time 11:05 Total Visit Minutes 13 Number of GRINDER SET UP OPERATOR UNIVERSAL Visits 0 Physical Therapy Visit Comments Patient Comments Pt willing to work with PT Therapy Pain Assessment Pain When Pain Assessed At Rest Pain Present Pain Present Pain Reported M4 PT-IP Mobility and Gait Start: 11/05/19 11:21 Freq: NEEDED Status: Active Protocol: Document 11/08/19 12:10 AW (Rec: 11/08/19 12:21 AW [id number]) PT-Bed Mobility Assessment Supine to Sit Supine to Sit Standby Assistance Scooting Scooting to Edge of Bed Standby Assistance PT-Transfer Assessment Sit to and From Stand Sit to and from Stand Independent Equipment Transfer Assistive Device Gait Belt,Straight Cane Transfers Transfer Destination Bed Transfer Technique pt ambulated with and without SPC Transfer Ability Level of Assist Independent Comments Mobility Comments Pt reclined in bed up on PT arrival. With HOB elevated (as at home) pt completed supine to sit SBA and sit to stand SBA. Pt walked to the sink without AD and stood to brush his hair, demonstrating good dynamic balance as he reached for grooming items and the light switch. He then ambulated in the halls with SPC and without. Without AD, he completed 4-item Dynamic Gait Index with a score of 12/ 12 with no path deviation or aberrant changes in speed noted. Upon return to the room , pt returned to bed SBA. Gait Assessment Gait Gait Assistance Required: Standby Assistance Distance (Feet) 500 Able to Maintain Weight Bearing Status Yes During Gait Assistive Devices Assistive Device Gait Belt,Straight Cane Orthotic/Prosthetic Devices or Brace: No Gait Deviations General Gait Pattern Antalgic,Decreased Stride Length,Flexed Trunk Factors Limiting Gait Function Factors Limiting Gait Function Decreased Activity Tolerance, Decreased Strength,Limited Range of Motion,Pain,Poor Balance Comments Gait Comments Pt demonstrated decreased and asymmetric step length without SPC. M5 PT-IP Objective Assessments Start: 11/05/19 11:21 Freq: NEEDED Status: Active Protocol: Document 11/05/19 11:21 [facility] (Rec: 11/05/19 11:59 [facility] [id number]) Orientation Orientation/Cognition Level of Alertness Alert Language Function Ability No Deficits Noted Safety Awareness Decreased Safety Awareness Memory Description No Deficits Noted Strength Lower Extremity Strength Assessment Left Impaired M6 PT-IP Treatment Start: 11/05/19 11:21 Freq: NEEDED Status: Active Protocol: Document 11/05/19 11:21 [facility] (Rec: 11/05/19 11:59 [facility] [id number]) Physical Therapy Treatment Education Education Provided Safety M7 PT-IP Assessment and Plan Start: 11/05/19 11:21 Freq: NEEDED Status: Active Protocol: Document 11/08/19 12:10 AW (Rec: 11/08/19 12:21 AW [id number]) PT Summary Assessment and Plan Summary Impairments Pain,ROM,Strength,Balance,Bed Mobility,Transfers,Gait, Activity Tolerance Progress Towards Goals Progressing Toward Goals Assessment Summary Pt benefits from use of an assistive device. mDGI score of 12/12 without AD indicates low risk of falls, but pt definitely has decreased and asymmetric step length without SPC vs with AD. Pt states he has axillary crutches, SPC, FWW, and 4WW and is able to select appropriate device situationally. Pt agreed to use an AD at all times at this point. He has no further acute PT needs. Goals Bed Mobility Goal Independent Transfer Goal Independent Gait Goal Independent Gait Distance 700 Other Goals without AD Days to Meet Goals 4 Frequency of Treatment Frequency Of Treatment Discharge Treatment Plan Physical Therapy Treatment Plan Bed Mobility Training,Transfer Training,Gait Training, Therapeutic Exercise,Balance Retraining,Discharge Planning, Neuromuscular Re-ed Recommendations To Nursing Amount of Assist Needed Standby Assistance Discharge Recommendations PT Discharge Recommendations Home with Assistance,Home Health Transportation Needs at Discharge Private Vehicle
--- NOTE | 2019-11-08 12:51 | CM.DPNOTE ---
DC Note Patient discharging home today, he remains agreeable to [facility] assisting w/ RN, PT/OT Placed call to Piedad at [facility] ; updated w/ DC date today and faxed DC Summary and available therapy notes. Patient will be seen w/in the next 24-48 hrs P: DC home w/family via pov and [facility] RN/PT/OT JEREMIAH [place]
== END 2019-11-08 12:35 | disposition home health service (06) | DRG 602 ==
LOC: ED 21:48 → AC 11-05 00:48
PROVIDERS: Internal Medicine; Admitting Provider Nurse Practitioner Adult Health; Emergency Provider Emergency Medicine; Referring Provider Emergency Medicine; Visit Provider Nurse Practitioner Adult Health
DX: L03.116 Cellulitis of left lower limb (principal); I26.99 Other pulmonary embolism without acute cor pulmonale; I47.2 Ventricular tachycardia; K59.00 Constipation, unspecified; R33.9 Retention of urine, unspecified; E11.9 Type 2 diabetes mellitus without complications; Z79.4 Long term (current) use of insulin; I10 Essential (primary) hypertension; Z87.891 Personal history of nicotine dependence; Z96.642 Presence of left artificial hip joint; Z98.890 Other specified postprocedural states; Z03.818 Encounter for observation for suspected exposure to other biological agents ruled out
CPT/HCPCS: 36415; 51701; 71045; 71275; 74177; 74250; 80048; 80053; 80202; 81001; 82550; 82553; 82728; 82962; 83036; 83605; 83615; 83735; 83880; 84145; 84443; 84484; 85025; 85379; 85610; 85651; 85730; 86140; 87040; 87633; 87635; 93005; 93306; 93971; 94760; 94762; 96361; 96365; 96366; 96367; 96372; 97116; 97162; 97165; 97530; 99285; J0696; J1170; J1650; J1956; Q9967

== ENCOUNTER 2019-12-28 17:14 | Emergency (ER) | payer OTHER, SELFPAY ==
[2019-11-05 00:38] VITALS: BMI 33.0
[2019-12-28 17:23] VITALS: BP 180/95; PULSE 102; RESP 16; TEMP 37.3; O2SAT 99; BMI 32.5
--- NOTE | 2019-12-28 17:40 | ED.SKABFB ---
HPI - Skin/Abscess/Foreign Bdy General Chief complaint: Skin/Abscess/Foreign Body Stated complaint: left side face swollen and hard Time Seen by Provider: 12/28/19 17:21 Source: patient Mode of arrival: Ambulatory History of Present Illness HPI narrative: CC: soft tissue left facial swelling HPI: The patient is a 59-year-old male who is a history of diabetes mellitus. He was thinking that because of the swelling of his left face he was having an allergic reaction to his Eliquis. He takes Eliquis for a history of deep vein thrombophlebitis and questionable pulmonary embolism. This was started over 4 weeks ago. The patient states that he had a pimple on his left face which is now become swollen hard and indurated. He denies that he was squeezing it. He applied hot compresses. He has no teeth in is edentulous. He states that he has been wearing his dentures every day but has not been able to wear his dentures today because of the diffuse swelling of his left face. He denies any headache trouble swallowing. The pain and discomfort in his left cheek is 3 to 4/10 in intensity and is a mild dull aching discomfort He denies a history of asthma COPD myocardial infarction congestive heart failure stroke but admits to history of hypertension and diabetes mellitus. He is a former smoker of rarely drinks alcohol and has not drank alcohol for number of months. He periodically smokes marijuana. He denies any fall injury or trauma to his face. Related Data Home Medications Medication Instructions Recorded Confirmed amlodipine 5 mg PO DAILY 11/05/19 11/05/19 glipizide 10 mg PO BID 11/05/19 11/05/19 insulin glargine 18 units SUBCUT BID 11/05/19 11/05/19 lisinopril 40 mg PO DAILY 11/05/19 11/05/19 metformin 1,000 mg PO BID 11/05/19 11/05/19 polyethylene glycol 3350 17 g PO BID PRN 11/05/19 11/05/19 Previous Rx's Medication Instructions Recorded apixaban [Eliquis] 5 mg PO BID #60 tab 11/08/19 cephalexin [Keflex] 500 mg PO TID #21 cap 11/08/19 docusate sodium [DOK] 200 mg PO BID PRN #60 cap 11/08/19 doxycycline hyclate 100 mg PO BID #14 cap 11/08/19 amoxicillin-pot clavulanate 1 tab PO Q12H #14 tab 12/28/19 [Augmentin] prednisone 40 mg PO DAILY #8 tab 12/28/19 Allergies Allergy/AdvReac Type Severity Reaction Status Date / Time No Known Drug Allergies Allergy Verified 12/28/19 17:23 Review of Systems Review of Systems Narrative: REVIEW OF SYSTEMS: CONSTITUTIONAL: He denies any fever chills or sweats. NEUROLOGICAL: He denies any headache numbness tingling paresthesias anesthesia is paresis or paralysis. EENT: He has had no sinus drainage nasal drainage sore throat or dysphagia. CARDIO-PULMONARY: He complains of mild shortness of breath but no significant cough chest pain palpitations or dizziness GASTROINTESTINAL: He denies any abdominal pain nausea vomiting diarrhea GENITAL URINARY: He has had no urinary symptoms. Patient History Medical History Diabetes type 2, uncontrolled (Acute) Hemorrhoids (Acute) Hypertension (Acute) Surgical History History of hip replacement (Acute) History of hip surgery (Acute) Status post knee surgery Family History Father Congestive heart failure Mother Cancer Brother No significant medical problems Social History household members: friend(s) Smoking Status: Former smoker Smoking Status: Former smoker alcohol intake frequency: other Substance Use Type: marijuana Exam Narrative Exam Narrative: PHYSICAL EXAM: CONSTITUTIONAL: Awake, Alert, Oriented, Coherent, Cooperative in NAD. Does not appear toxic or ill. HEAD: AT/NC EENT: PERRL, FROM of eyes, no discharge, MOUTH:Oral mucosa is moist and pink, posterior pharynx is without erythema or exudate. The patient is edentulous. There is no appreciable soft tissue swelling of his oral mucosa. The patient's left lateral face is mildly swollen and tender. Lateral to the corner of his left mouth the patient has a an area of induration that feels like a phlegmon that is nonfluctuant that is approximately I half to 1 cm in diameter. This is where it started as a pimple according to the patient. NECK: Supple, no obvious JVD, Trachea is midline without stridor, no palpable LN. SPINE: Palpationof the cervical, Thoracic, Lumbar or Sacral spine reveals no gross deformity or tenderness. No CVA tenderness. THORAX: No deformity, retractions, chest wall tenderness. LUNGS: Clear, symmetrical breath sounds without respiratory distress. HEART: Normal heart tones, regular rhythm and rate without murmur. ABDOMEN: Soft, non-tender, normal bowel sounds without guarding, rebound, rigidity or palpable mass. NEURO: Awake, alert, oriented, conversive, cranial nerves II-XII are symmetrical , moves all 4 extremities and is ambulatory. Initial Vital Signs Initial Vital Signs: Vital Signs Temperature 99.2 F 12/28/19 17:23 Pulse Rate 102 H 12/28/19 17:23 Respiratory Rate 16 12/28/19 17:23 Blood Pressure 180/95 H 12/28/19 17:23 Pulse Oximetry 99 12/28/19 17:23 Course Orders Ordered: Discontinued Medications Ampicillin Sodium/Sulbactam (Sodium 3 gm/ Sodium Chloride) 100 mls @ 100 mls/hr IV NOW ONE Stop: 12/28/19 17:40 Last Infusion: 12/28/19 19:11 Dose: 100 mls/hr Documented by: Admin: 12/28/19 18:05 Dose: 100 mls/hr Documented by: SCANSHANNAO Methylprednisolone (Solu-Medrol 125 Mg Vial) 125 mg IV NOW ONE Stop: 12/28/19 17:54 Last Admin: 12/28/19 18:05 Dose: 125 mg Documented by: SCANAPO Vital Signs Vital signs: Vital Signs - 8 hr 12/28/19 17:23 Temperature 99.2 F Pulse Rate 102 H Respiratory Rate 16 Blood Pressure 180/95 H Pulse Oximetry 99 MDM - Skin/Abscess/Foreign Bdy Lab Data Result diagrams: 12/28/19 18:00 12/28/19 18:00 Labs: Lab Results 12/28/19 12/28/19 Range/Units 18:00 18:00 WBC Cancelled RBC Cancelled Hgb Cancelled Hct Cancelled MCV Cancelled MCH Cancelled MCHC Cancelled RDW Cancelled Plt Count Cancelled Neut % (Auto) Cancelled Lymph % (Auto) Cancelled [place] % (Auto) Cancelled Eos % (Auto) Cancelled Baso % (Auto) Cancelled Neut # (Auto) Cancelled Lymph # (Auto) Cancelled [place] # (Auto) Cancelled Eos # (Auto) Cancelled Baso # (Auto) Cancelled Sodium Cancelled Potassium Cancelled Chloride Cancelled Carbon Dioxide Cancelled BUN Cancelled Creatinine Cancelled Estimated GFR Cancelled BUN/Creatinine Ratio Cancelled Glucose Cancelled Calcium Cancelled Total Bilirubin Cancelled AST Cancelled ALT Cancelled Alkaline Phosphatase Cancelled Total Protein Cancelled Albumin Cancelled Globulin Cancelled Albumin/Globulin Ratio Cancelled Discharge Plan Departure Patient Disposition: Home Clinical Impression: Abscess of face, Cellulitis of face Discharge Date/Time: 12/28/19 19:10 Instructions: DI for Cellulitis -- Adult, DI for Skin Abscess Activity Restrictions/Additional Instructions: 1. Follow-up with your primary care physician and be re-evaluated in 48-72 hours. 2. If you your face explode says and becomes red hot much more swollen and the nodule becomes larger despite the medication you need to return to the emergency department. 3. Take prednisone as prescribed. This will cause your blood sugar to go up. 4. Take the Augmentin as prescribed until gone. Prescriptions: New prednisone 20 mg tablet 40 mg PO DAILY Qty: 8 RF: 0 amoxicillin-pot clavulanate [Augmentin] 875-125 mg tablet 1 tab PO Q12H Qty: 14 RF: 0 No Action glipizide 10 mg Tablet 10 mg PO BID RF: 0 amlodipine 5 mg Tablet 5 mg PO DAILY RF: 0 insulin glargine 18 units SUBCUT BID RF: 0 lisinopril 40 mg PO DAILY RF: 0 metformin 500 mg tablet 1,000 mg PO BID RF: 0 polyethylene glycol 3350 17 g PO BID PRN (Reason: Constipation) RF: 0 docusate sodium [DOK] 100 mg Capsule 200 mg PO BID PRN (Reason: Constipation) Qty: 60 RF: 0 doxycycline hyclate 100 mg capsule 100 mg PO BID Qty: 14 RF: 0 cephalexin [Keflex] 500 mg capsule 500 mg PO TID Qty: 21 RF: 0 Eliquis 5 mg tablet 5 mg PO BID Qty: 60 RF: 2
[2019-12-28] MEDS: AMPICILLIN/SULBACTAM 3 GM 3 GM in SODIUM CHLORIDE 0.9% 100 ML IV (18:05)
[2019-12-28] MEDS: methylPREDNISolone 125 MG/2 ML VIAL IV (18:05)
[2019-12-28 19:00] VITALS: BP 168/84; PULSE 90; RESP 20; O2SAT 98
== END 2019-12-28 19:10 | disposition home or self-care (01) ==
PROVIDERS: Emergency Provider Emergency Medicine
DX: L03.211 Cellulitis of face (principal); L02.01 Cutaneous abscess of face; E11.9 Type 2 diabetes mellitus without complications
CPT/HCPCS: 36415; 96365; 96375; 99284; J0295; J2930

== ENCOUNTER → 2021-02-04 10:24 | Outpatient (CLI) | payer OTHER, SELFPAY ==
[2019-11-05 00:38] VITALS: BMI 33.0
[2021-02-04 13:09] LABS: COVID19 -Nasal RAPID POSITIVE (Negative)
== END ==
PROVIDERS: Visit Provider Physician Assistant
DX: U07.1 COVID-19 (principal)
CPT/HCPCS: 87635

== ENCOUNTER 2021-04-21 15:37 | Emergency (ER) | payer OTHER, SELFPAY ==
[2019-11-05 00:38] VITALS: BMI 33.0
[2021-04-21] VITALS (10 sets, daily range): BP systolic 142–168; BP diastolic 79–85; PULSE 62–100; RESP 14–25; TEMP 36.5; O2SAT 94–98; BMI 32.1
--- NOTE | 2021-04-21 16:39 | DI.RAD.S_ITS ---
PROCEDURE: XR CHEST 1V INDICATIONS: chest pain TECHNIQUE: One view of the chest was acquired. COMPARISON: [facility], [place], XR CHEST 1V, 11/04/2019, 21:58. FINDINGS: Surgical changes and devices: None. Lungs and pleura: Lungs are clear. No pleural effusions or pneumothorax. Mediastinum: Heart size enlarged. No vascular congestion present. Bones and chest wall: No suspicious bony lesions. Overlying soft tissues appear unremarkable. IMPRESSION: Cardiomegaly without vascular congestion Approved by: Francisco Hu M.D. on 04/21/2021 at 16:55
[2021-04-21 16:51] LABS: Add Manual Diff / Slide Review NO; Basophils Absolute Auto 100 /uL (0-100); Basophils Percent Auto 1.1 % (0-2); Eosinophils Absolute Auto 200 /uL (0-450); Hematocrit 42.5 % (41-53); Hemoglobin 14.5 g/dL (13.5-17.5); Lymphocytes Absolute Auto 1500 /uL (1100-4500); Lymphocytes Percent Auto 25.2 % (25-40); Mean Corpuscular HGB Conc 34.1 % (30-36); Mean Corpuscular Volume 88.1 fL (80-100); Monocytes Absolute Auto 400 /uL (0-900); Monocytes Percent Auto 6.5 % (3-14); Neutrophils Absolute Auto 3800 /uL (1500-7000); Neutrophils Percent Auto 63.2 % (50-75); Platelet Count 268 X10^3/uL (150-400); Red Blood Cell Count 4.83 X10^6/uL (4.5-5.9); Red Cell Distribution Width 13.6 % (11.6-14.8); White Blood Cell Count 6.1 X10^3/uL (4.5-11.0)
[2021-04-21 17:13] LABS: Alanine Aminotransferase 29 IU/L (<50); Alkaline Phosphatase 70 U/L (38-126); Aspartate Aminotransferase 35 IU/L (17-59); BUN Creatinine Ratio 26.5 (6-22); Bilirubin Total 0.4 mg/dL (0.2-1.3); Blood Urea Nitrogen 18 mg/dL (9-20); Carbon Dioxide 30 mmol/L (22-32); Chloride 102 mmol/L (98-107); Creatine Kinase 303 U/L (55-170); Estimated Glomerular Filt Rate > 60.0 mL/min (>60); Glucose 245 mg/dL (80-110); Potassium 4.6 mmol/L (3.4-5.1); Sodium 136 mmol/L (137-145); Total Protein 6.7 g/dL (6.3-8.2)
[2021-04-21 17:14] LABS: Albumin Globulin Ratio 1.5 (1.0-2.8); Globulin 2.7 g/dL (1.7-4.1); HEMOLYSIS 31 (0-50); Lipase 245 U/L (23-300)
[2021-04-21 17:25] LABS: Troponin I 0.018 ng/mL (0.01-0.034)
[2021-04-21 17:29] LABS: CKMB % Relative Index 2.4 % (1.5-5.0); Creatine Kinase MB 7.28 ng/mL (<2.37)
--- NOTE | 2021-04-21 18:10 | ED.SOB ---
HPI - SOB/Dyspnea General Chief Complaint: Shortness of Breath/Dyspnea Stated Complaint: cant keep eyes open, confused, dizzy, SOB Time Seen by Provider: 04/21/21 18:07 Source: patient and other (coworker) Limitations: no limitations History of Present Illness HPI Narrative: This is a 61-year-old male who comes to the emergency department with complaint of can not keep his eyes open. Patient states today he would be sitting at his computer at work and he would just pass out or fall asleep. He states he would be still sitting there and realize he was staring at his screen and had lost time. He does not know how long. His coworkers did witness some episodes. They describe him as having his eyes rolled back and said for a couple seconds. They do not describe any loss tone. They do state patient seemed confused afterwards. They state that he seemed mildly confused all day and had difficulty focusing. Patient has not had similar symptoms in the past. He states it seemed to be having every few minutes but he is not exactly sure. He does not know how long the episodes have passed. He denies any headache. He does note that he has numbness tingling in bilateral extremities there painful over the last few days and even today. He denies any numbness, tingling or weakness. He denies any headache. He denies any new acute vision changes has had chronic changes with the scheduled left cataract surgery. He has felt short of breath today. He denies any chest pain or pressure. No nausea or vomiting. He denies any incontinence of bowel or bladder. No issues with bowel movements such as diarrhea constipation. No urinary symptoms. No fevers, cold cough or congestion other than a chronic cough related to his medications. Patient has a history of diabetes and hypertension, he did develop a DVT status post hip surgery several years ago and was Eliquis for this but only takes 162 mg of aspirin daily now. Besides having both hips replaced he denies other surgeries. He was seen for cataract surgery on his left eye and was noted to have a trigeminal type PVC beat and referred back to his primary care. He smokes about a pack per day, he denies alcohol, he does use THC daily he denies other illicit. He denies any known epilepsy, seizure disorder in his family. Father began having problems with CHF in his 60s. His primary care is in [place], Dr. Shea. Patient states the symptoms appear to be acute and just beginning today and he has not had frequent symptoms recently. Related Data Home Medications Medication Instructions Recorded Confirmed amlodipine 5 mg tablet 5 mg PO DAILY 11/05/19 11/05/19 glipizide 10 mg tablet 10 mg PO BID 11/05/19 11/05/19 insulin glargine 18 units SUBCUT BID 11/05/19 11/05/19 lisinopril 40 mg PO DAILY 11/05/19 11/05/19 metformin 1,000 mg PO BID 11/05/19 11/05/19 polyethylene glycol 3350 17 g PO BID PRN 11/05/19 11/05/19 Previous Rx's Medication Instructions Recorded apixaban 5 mg tablet (Eliquis) 5 mg PO BID #60 tab 11/08/19 cephalexin 500 mg capsule (Keflex) 500 mg PO TID #21 cap 11/08/19 docusate sodium 100 mg capsule 200 mg PO BID PRN #60 cap 11/08/19 (DOK) doxycycline hyclate 100 mg capsule 100 mg PO BID #14 cap 11/08/19 amoxicillin 875 mg-potassium 1 tab PO Q12H #14 tab 12/28/19 clavulanate 125 mg tablet (Augmentin) prednisone 20 mg tablet 40 mg PO DAILY #8 tab 12/28/19 Allergies Allergy/AdvReac Type Severity Reaction Status Date / Time No Known Drug Allergies Allergy Verified 12/28/19 17:23 Review of Systems Review of Systems ROS Unobtainable: All systems reviewed & are unremarkable except as noted in HPI and below Patient History Medical History (Updated 04/21/21 @ 20:51 by Janene Valdez DO) Diabetes type 2, uncontrolled Hemorrhoids Hypertension Surgical History History of hip replacement History of hip surgery Status post knee surgery Family History Father Congestive heart failure Mother Cancer Brother No significant medical problems Social History household members: friend(s) Smoking Status: Current every day smoker Smoking Status: Current every day smoker alcohol intake frequency: other Substance Use Type: marijuana Exam Narrative Exam Narrative: GEN: well nourished, well appearing male, alert and oriented x 3, patient appears to be in mild distress. HEENT: Atraumatic, pupils are equal round reactive to light, extraocular movements are intact, no nystagmus, nares are clear, TMs are clear with no fluid, there is no conjunctival pallor. Throat is clear without any exudates, erythema, tonsillar enlargement or uvular deviation, no facial droop. HEART: Regular rate and rhythm without murmur, clicks, rubs. Pulses are equal in upper and lower extremities LUNGS:Lungs clear to auscultation, no wheezes, rales, crackles, chest moves symmetrically, no tachypnea accessory muscle use. ABD:bowel sounds normal, soft, non-tender, no guarding, rebound, rigidity, no masses noted, no hepatosplenomegaly :No CVA tenderness MSCL: Non-tender, no muscle atrophy, muscles strength 5/5 upper and lower extremities, full range of motion, normal gait NEURO:CN 2-12 intact, sensation normal, reflexes 2/4 upper and lower extremities. finger nose finger test normal, heel green test normal SKIN: Rash, erythema or skin changes noted. Initial Vital Signs Initial Vital Signs: Vital Signs Temperature 97.7 F 04/21/21 16:33 Pulse Rate 62 04/21/21 16:33 Respiratory Rate 16 04/21/21 16:33 Blood Pressure 142/84 H 04/21/21 16:33 Pulse Oximetry 97 04/21/21 16:33 Scores GCS [place] coma scale eye opening: Spontaneous [place] coma scale verbal response: Orientated Rita coma scale motor response: Obey commands Rita coma scale total score: 15 Course Orders Ordered: ED Orders 04/21/21 18:00 COVID19 -Nasal swab/Pre-Proc Stat 04/21/21 18:38 CT head/brain wo con Stat 04/21/21 19:04 D Dimer Stat Troponin I Stat 04/21/21 19:35 Urinalysis and Microscopic Stat Urine Drug Screen, Rapid Stat Reevaluation(s) Reevaluation #1: Patient has not had any episodes of syncope or altered mental status that are appreciated here. Discussed with patient his imaging and labs are reassuring he is positive for methamphetamines and THC in his urine. Patient did state he is THC regularly. He denies any known methamphetamine ingestion. He does state that he does not always obtain his THC from a dispensary and we discussed this as a possible source. I do suspect his symptoms are related to this and encouraged him to avoid further usage. He does not admit to any active methamphetamine use or knowledge of methamphetamine use. And we had reviewed his medications which are not suspicious for causing a false positive. Time: 20:55 Vital Signs Vital signs: Vital Signs - 8 hr 04/21/21 19:00 04/21/21 19:30 04/21/21 20:00 Pulse Rate 82 100 H 83 Respiratory Rate 18 25 H 15 Blood Pressure Pulse Oximetry 98 97 04/21/21 20:30 04/21/21 20:54 Pulse Rate 92 H 88 Respiratory Rate 17 Blood Pressure 155/79 H Pulse Oximetry 94 MDM - SOB/Dyspnea Lab Data Result diagrams: 04/21/21 16:41 04/21/21 16:41 Labs: Lab Results 04/21/21 04/21/21 04/21/21 Range/Units 16:41 16:41 16:41 WBC 6.1 (4.5-11.0) X10^3/uL RBC 4.83 (4.5-5.9) X10^6/uL Hgb 14.5 (13.5-17.5) g/dL Hct 42.5 (41-53) % MCV 88.1 (80-100) fL MCH 30.0 (26-34) PG MCHC 34.1 (30-36) % RDW 13.6 (11.6-14.8) % Plt Count 268 (150-400) X10^3/uL Neut % (Auto) 63.2 (50-75) % Lymph % (Auto) 25.2 (25-40) % [place] % (Auto) 6.5 (3-14) % Eos % (Auto) 4.0 (2-4) % Baso % (Auto) 1.1 (0-2) % Neut # (Auto) 3800 (5423-2295) /uL Lymph # (Auto) 1500 (4047-0088) /uL Over[place] # (Auto) 400 (0-900) /uL Eos # (Auto) 200 (0-450) /uL Baso # (Auto) 100 (0-100) /uL D-Dimer (<230) ng/mL Sodium 136 L (137-145) mmol/L Potassium 4.6 (3.4-5.1) mmol/L Chloride 102 (98-107) mmol/L Carbon Dioxide 30 (22-32) mmol/L BUN 18 (9-20) mg/dL Creatinine 0.68 (0.66-1.25) mg/dL Estimated GFR > 60.0 (>60) mL/min BUN/Creatinine Ratio 26.5 H (6-22) Glucose 245 H (80-110) mg/dL Calcium 9.0 (8.4-10.2) mg/dL Total Bilirubin 0.4 (0.2-1.3) mg/dL AST 35 (17-59) IU/L ALT 29 (<50) IU/L Alkaline Phosphatase 70 (38-126) U/L Total Creatine Kinase 303 H (55-170) U/L CK-MB (CK-2) 7.28 H (<2.37) ng/mL CK-MB (CK-2) Rel Index 2.4 (1.5-5.0) % Troponin I 0.018 (0.01-0.034) ng/mL NT-Pro-B Natriuret Pep 282 H (<125) pg/mL Total Protein 6.7 (6.3-8.2) g/dL Albumin 4.0 (3.5-5.0) g/dL Globulin 2.7 (1.7-4.1) g/dL Albumin/Globulin Ratio 1.5 (1.0-2.8) Lipase 245 (23-300) U/L Urine Color Urine Appearance Urine pH (4.5-8.0) Ur Specific Pride (1.000-1.035) Urine Protein (Negative) Urine Glucose (UA) (Negative) g/dL Urine Ketones (NEGATIVE) Urine Occult Blood (Negative) Urine Nitrate (Negative) Urine Bilirubin (NEGATIVE) Urine Urobilinogen (0.2) E.U./dL Ur Leukocyte Esterase (NEGATIVE) Urine RBC (0-5/HPF) Urine WBC (0-5/HPF) Ur Squamous Epith Cells (0-5/HPF) Urine Bacteria (None) Ur Culture Indicated? U Opiates 300ng/mL cut (Negative) Ur Oxycodone Screen (Negative) Urine Methadone Screen (Negative) Ur Barbiturates Screen (Negative) U Tricyclic Antidepress (Negative) Ur Phencyclidine Scrn (Negative) Ur Amphetamines Screen (Negative) U Methamphetamines Scrn (Negative) Ur MDMA Scrn (Ecstasy) (Negative) U Benzodiazepines Scrn (Negative) Urine Cocaine Screen (Negative) U Marijuana (THC) Screen (Negative) SARS-CoV-2 (PCR) (Negative) 04/21/21 04/21/21 04/21/21 Range/Units 18:00 19:04 19:04 WBC (4.5-11.0) X10^3/uL RBC (4.5-5.9) X10^6/uL Hgb (13.5-17.5) g/dL Hct (41-53) % MCV (80-100) fL MCH (26-34) PG MCHC (30-36) % RDW (11.6-14.8) % Plt Count (150-400) X10^3/uL Neut % (Auto) (50-75) % Lymph % (Auto) (25-40) % Over[place] % (Auto) (3-14) % Eos % (Auto) (2-4) % Baso % (Auto) (0-2) % Neut # (Auto) (8142-7212) /uL Lymph # (Auto) (5774-9284) /uL [place] # (Auto) (0-900) /uL Eos # (Auto) (0-450) /uL Baso # (Auto) (0-100) /uL D-Dimer 266 H (<230) ng/mL Sodium (137-145) mmol/L Potassium (3.4-5.1) mmol/L Chloride (98-107) mmol/L Carbon Dioxide (22-32) mmol/L BUN (9-20) mg/dL Creatinine (0.66-1.25) mg/dL Estimated GFR (>60) mL/min BUN/Creatinine Ratio (6-22) Glucose (80-110) mg/dL Calcium (8.4-10.2) mg/dL Total Bilirubin (0.2-1.3) mg/dL AST (17-59) IU/L ALT (<50) IU/L Alkaline Phosphatase (38-126) U/L Total Creatine Kinase (55-170) U/L CK-MB (CK-2) (<2.37) ng/mL CK-MB (CK-2) Rel Index (1.5-5.0) % Troponin I 0.022 (0.01-0.034) ng/mL NT-Pro-B Natriuret Pep (<125) pg/mL Total Protein (6.3-8.2) g/dL Albumin (3.5-5.0) g/dL Globulin (1.7-4.1) g/dL Albumin/Globulin Ratio (1.0-2.8) Lipase (23-300) U/L Urine Color Urine Appearance Urine pH (4.5-8.0) Ur Specific Pride (1.000-1.035) Urine Protein (Negative) Urine Glucose (UA) (Negative) g/dL Urine Ketones (NEGATIVE) Urine Occult Blood (Negative) Urine Nitrate (Negative) Urine Bilirubin (NEGATIVE) Urine Urobilinogen (0.2) E.U./dL Ur Leukocyte Esterase (NEGATIVE) Urine RBC (0-5/HPF) Urine WBC (0-5/HPF) Ur Squamous Epith Cells (0-5/HPF) Urine Bacteria (None) Ur Culture Indicated? U Opiates 300ng/mL cut (Negative) Ur Oxycodone Screen (Negative) Urine Methadone Screen (Negative) Ur Barbiturates Screen (Negative) U Tricyclic Antidepress (Negative) Ur Phencyclidine Scrn (Negative) Ur Amphetamines Screen (Negative) U Methamphetamines Scrn (Negative) Ur MDMA Scrn (Ecstasy) (Negative) U Benzodiazepines Scrn (Negative) Urine Cocaine Screen (Negative) U Marijuana (THC) Screen (Negative) SARS-CoV-2 (PCR) Negative (Negative) 04/21/21 04/21/21 Range/Units 19:35 19:35 WBC (4.5-11.0) X10^3/uL RBC (4.5-5.9) X10^6/uL Hgb (13.5-17.5) g/dL Hct (41-53) % MCV (80-100) fL MCH (26-34) PG MCHC (30-36) % RDW (11.6-14.8) % Plt Count (150-400) X10^3/uL Neut % (Auto) (50-75) % Lymph % (Auto) (25-40) % [place] % (Auto) (3-14) % Eos % (Auto) (2-4) % Baso % (Auto) (0-2) % Neut # (Auto) (0633-2669) /uL Lymph # (Auto) (8845-3717) /uL [place] # (Auto) (0-900) /uL Eos # (Auto) (0-450) /uL Baso # (Auto) (0-100) /uL D-Dimer (<230) ng/mL Sodium (137-145) mmol/L Potassium (3.4-5.1) mmol/L Chloride (98-107) mmol/L Carbon Dioxide (22-32) mmol/L BUN (9-20) mg/dL Creatinine (0.66-1.25) mg/dL Estimated GFR (>60) mL/min BUN/Creatinine Ratio (6-22) Glucose (80-110) mg/dL Calcium (8.4-10.2) mg/dL Total Bilirubin (0.2-1.3) mg/dL AST (17-59) IU/L ALT (<50) IU/L Alkaline Phosphatase (38-126) U/L Total Creatine Kinase (55-170) U/L CK-MB (CK-2) (<2.37) ng/mL CK-MB (CK-2) Rel Index (1.5-5.0) % Troponin I (0.01-0.034) ng/mL NT-Pro-B Natriuret Pep (<125) pg/mL Total Protein (6.3-8.2) g/dL Albumin (3.5-5.0) g/dL Globulin (1.7-4.1) g/dL Albumin/Globulin Ratio (1.0-2.8) Lipase (23-300) U/L Urine Color Yellow Urine Appearance Clear Urine pH 6.0 (4.5-8.0) Ur Specific Pride 1.020 (1.000-1.035) Urine Protein 2+ H (Negative) Urine Glucose (UA) 2+ H (Negative) g/dL Urine Ketones Negative (NEGATIVE) Urine Occult Blood 1+ H (Negative) Urine Nitrate Negative (Negative) Urine Bilirubin Negative (NEGATIVE) Urine Urobilinogen 0.2 (0.2) E.U./dL Ur Leukocyte Esterase Negative (NEGATIVE) Urine RBC 5-10/hpf H (0-5/HPF) Urine WBC 0-1/hpf (0-5/HPF) Ur Squamous Epith Cells 0-1 /hpf (0-5/HPF) Urine Bacteria None seen (None) Ur Culture Indicated? Cult not indicated U Opiates 300ng/mL cut Negative (Negative) Ur Oxycodone Screen Negative (Negative) Urine Methadone Screen Negative (Negative) Ur Barbiturates Screen Negative (Negative) U Tricyclic Antidepress Negative (Negative) Ur Phencyclidine Scrn Negative (Negative) Ur Amphetamines Screen Negative (Negative) U Methamphetamines Scrn Positive H (Negative) Ur MDMA Scrn (Ecstasy) Negative (Negative) U Benzodiazepines Scrn Negative (Negative) Urine Cocaine Screen Negative (Negative) U Marijuana (THC) Screen Positive H (Negative) SARS-CoV-2 (PCR) (Negative) Imaging Data CT scan - head: Radiologist's Impression: Launch?[place] [address] CT Scan Report Signed Patient: Rom Finch Jr MR#: [id number] : 1960 Acct:[id number] Age/Sex: 61 / M Date of Service: 04/21/21 Loc: ED Accession Number: [id number] ?? Procedure: CT head/brain wo con Ordering Provider: Janene Valdez D.O. PROCEDURE:? CT HEAD/BRAIN WO CON ? INDICATIONS:? confusion, ? passing out, recurrent episodes ? TECHNIQUE:? Noncontrast 4.5 mm thick angled axial sections acquired from the foramen magnum to the vertex, with coronal and sagittal reformats.? For radiation dose reduction, the following was used:? automated exposure control, adjustment of mA and/or kV according to patient size.? ? COMPARISON:? None. ? FINDINGS:? Image quality:? Excellent.? ? CSF spaces:? Basal cisterns are patent.? No extra-axial fluid collections.? The ventricles are symmetric in size and shape.? ? Brain:? No acute intracranial hemorrhage or mass effect.? There is minimal cerebral volume loss for age, with resultant ventricular and sulcal prominence.? There are periventricular and deep white matter chronic small vessel ischemic changes.? There is intracranial internal carotid artery atherosclerosis.? ? Skull and face:? Calvarium and visualized facial bones appear intact, without suspicious lesions.? ? Sinuses:? Visualized sinuses and mastoids are clear.? ? IMPRESSION:? No acute intracranial abnormality.? Mild chronic microvascular ischemic changes. ? ? Dictated by: Timoteo Glaser M.D. on 04/21/2021 at 18:57 ? ? Approved by: Timoteo Glaser M.D. on 04/21/2021 at 18:59? Chest x-ray: Radiologist's Impression: [address] [address] XRay Report Signed Patient: Rom Finch Jr MR#: [id number] : 1960 Acct:[id number] Age/Sex: 61 / M Date of Service: 04/21/21 Loc: ED Accession Number: [id number] ?? Procedure: XR chest 1V Ordering Provider: Rios Hernandez D.O. PROCEDURE:? XR CHEST 1V ? INDICATIONS:? chest pain ? TECHNIQUE:? One view of the chest was acquired.? ? COMPARISON:? [facility], CR, XR CHEST 1V, 11/04/2019, 21:58. ? FINDINGS:? ? Surgical changes and devices:? None.? ? Lungs and pleura:? Lungs are clear.? No pleural effusions or pneumothorax.? ? Mediastinum:? Heart size enlarged.? No vascular congestion present. ? Bones and chest wall:? No suspicious bony lesions.? Overlying soft tissues appear unremarkable.? ? IMPRESSION:? Cardiomegaly without vascular congestion ? ? ? Approved by: Francisco Hu M.D. on 04/21/2021 at 16:55? ECG Data Attestation: I personally reviewed and interpreted this ECG as follows: Prior ECG tracings: available for review Interpretation: Sinus rhythm with frequent PVCs, left anterior fascicular block. Eighty 6p are 138 QRS of 100 and QTC 457. No acute ST changes appreciated. Patient is almost a trigeminal pattern of PVCs. This does not extend through his telemetry in the room. MDM Narrative Medical decision making narrative: This is a 61-year-old male who comes to the emergency department with complaint of can not keep his eyes open as well as shortness of breath and several other symptoms. Patient's head CT, chest x-ray are negative with no acute neurologic changes. His EKG does not show any clear changes he does have a trigeminal pattern on his EKG but on telemetry he does not have PVCs this frequently. He does have an elevated glucose but no signs of DKA. An EKG has no acute changes with negative troponin, BNP is very mildly elevated to 82 no the likely cause of his symptoms. Urine does not show any clear signs of infection, COVID is negative but UDS does show positive for THC and methamphetamines. No obvious false-positive based on his regular medications. I suspect patient's symptoms may be related to this. He is feeling much better here in the department feels that he is safe to return home. We did discussed avoiding potential ingestion in the future especially considering his past medical history. Discharge Plan Departure Patient Disposition: Home Clinical Impression: Altered mental status Activity Restrictions/Additional Instructions: Your labs and imaging today are overall reassuring. Your urine today was positive for methamphetamines and this is likely causing your symptoms today. You have had occasional extra beats here in the department but not excessively. I would encourage you to continue home medications as prescribed. Please return if you have any new or worsening symptoms, worsening passing out, chest pain, shortness of breath, persistent vomiting, black or bloody stools, new alterations in mental status or other new or concerning symptoms. Prescriptions: No Action glipizide 10 mg Tablet 10 mg PO BID RF: 0 amlodipine 5 mg Tablet 5 mg PO DAILY RF: 0 insulin glargine 18 units SUBCUT BID RF: 0 lisinopril 40 mg PO DAILY RF: 0 metformin 500 mg tablet 1,000 mg PO BID RF: 0 polyethylene glycol 3350 17 g PO BID PRN (Reason: Constipation) RF: 0 docusate sodium [DOK] 100 mg Capsule 200 mg PO BID PRN (Reason: Constipation) Qty: 60 RF: 0 doxycycline hyclate 100 mg capsule 100 mg PO BID Qty: 14 RF: 0 cephalexin [Keflex] 500 mg capsule 500 mg PO TID Qty: 21 RF: 0 Eliquis 5 mg tablet 5 mg PO BID Qty: 60 RF: 2 prednisone 20 mg tablet 40 mg PO DAILY Qty: 8 RF: 0 amoxicillin-pot clavulanate [Augmentin] 875-125 mg tablet 1 tab PO Q12H Qty: 14 RF: 0 Referrals: Miscellaneous,Doctor, [Primary Care Provider] - Tamiko Silva ARNP [Non-Staff] -
[2021-04-21 18:22] LABS: COVID19 -Nasal RAPID Negative (Negative)
--- NOTE | 2021-04-21 18:38 | DI.CT.S_ITS ---
PROCEDURE: CT HEAD/BRAIN WO CON INDICATIONS: confusion, ? passing out, recurrent episodes TECHNIQUE: Noncontrast 4.5 mm thick angled axial sections acquired from the foramen magnum to the vertex, with coronal and sagittal reformats. For radiation dose reduction, the following was used: automated exposure control, adjustment of mA and/or kV according to patient size. COMPARISON: None. FINDINGS: Image quality: Excellent. CSF spaces: Basal cisterns are patent. No extra-axial fluid collections. The ventricles are symmetric in size and shape. Brain: No acute intracranial hemorrhage or mass effect. There is minimal cerebral volume loss for age, with resultant ventricular and sulcal prominence. There are periventricular and deep white matter chronic small vessel ischemic changes. There is intracranial internal carotid artery atherosclerosis. Skull and face: Calvarium and visualized facial bones appear intact, without suspicious lesions. Sinuses: Visualized sinuses and mastoids are clear. IMPRESSION: No acute intracranial abnormality. Mild chronic microvascular ischemic changes. Dictated by: Timoteo Glaser M.D. on 04/21/2021 at 18:57 Approved by: Timoteo Glaser M.D. on 04/21/2021 at 18:59
[2021-04-21 18:48] LABS: NT-proBNP (BNP-Adult 18+) 282 pg/mL (<125)
[2021-04-21 19:25] LABS: D Dimer 266 ng/mL (<230)
[2021-04-21 19:36] LABS: Troponin I 0.022 ng/mL (0.01-0.034)
[2021-04-21 19:56] LABS: Appearance Urine UA CLEAR; Bilirubin Urine UA NEGATIVE (NEGATIVE); Color Urine UA YELLOW; Glucose Urine UA 2+ g/dL (Negative); Ketones Urine UA NEGATIVE (NEGATIVE); Leukocyte Esterase Urine UA NEGATIVE (NEGATIVE); Nitrite Urine UA NEGATIVE (Negative); Occult Blood Urine UA 1+ (Negative); Protein Urine UA 2+ (Negative); Urobilinogen Urine UA 0.2 E.U./dL (0.2)
[2021-04-21 20:05] LABS: Ur Creatinine Normal (Normal); Ur Specific Gravity Normal (Normal); Urine Tetrahydrocannabinol Positive (Negative); Urine pH Normal (Normal)
[2021-04-21 20:06] LABS: UR Morphine/Opiate cutoff 300 Negative (Negative); Urine Amphetamines Negative (Negative); Urine Barbiturates Negative (Negative); Urine Benzodiazepines Negative (Negative); Urine Cocaine Negative (Negative); Urine MDMA Negative (Negative); Urine Methadone Negative (Negative); Urine Methamphetamines Positive (Negative); Urine Oxycodone Negative (Negative); Urine Phencyclidine Negative (Negative); Urine Tricyclic Antidepressant Negative (Negative)
[2021-04-21 20:15] LABS: Bacteria Urine None Seen; Culture Indicated Urine Cult Not Indicated; RBC Urine 5-10/HPF (0-5/HPF); Squamous Epithelial Cell Urine 0-1 /HPF (0-5/HPF); WBC Urine 0-1/HPF (0-5/HPF)
== END 2021-04-21 21:05 | disposition home or self-care (01) ==
PROVIDERS: Emergency Medicine; Emergency Provider Emergency Medicine
DX: R41.82 Altered mental status, unspecified (principal); R06.02 Shortness of breath; R42 Dizziness and giddiness; R07.9 Chest pain, unspecified; Z20.822 Contact with and (suspected) exposure to COVID-19
CPT/HCPCS: 36415; 51701; 70450; 71045; 80053; 80305; 81001; 82550; 82553; 83690; 83880; 84484; 85025; 85379; 87635; 93005; 99284; C9803

== ENCOUNTER 2022-08-17 12:33 | Emergency (ER) | payer OTHER, SELFPAY ==
[2019-11-05 00:38] VITALS: BMI 33.0
[2022-08-17 13:03] VITALS: BP 127/69; PULSE 87; RESP 18; TEMP 36.6; O2SAT 97; BMI 32.1
--- NOTE | 2022-08-17 13:12 | DI.RAD.S_ITS ---
PROCEDURE: XR CHEST 2V INDICATIONS: SOB TECHNIQUE: 2 views of the chest were acquired. COMPARISON: [facility], CHEST 2 VIEW, 06/13/2007, 0:46. [facility], , XR CHEST 1V, 04/21/2021, 17:36. FINDINGS: Surgical changes and devices: None. Lungs and pleura: Lungs are clear. No pleural effusions or pneumothorax. Mediastinum: Mediastinal contours are normal. Heart size is normal. Bones and chest wall: No suspicious bony abnormalities. Soft tissues appear unremarkable. IMPRESSION: No acute cardiopulmonary disease process. Dictated by: Dunia Baker MD, PhD on 08/17/2022 at 13:32 Approved by: Dunia Baker MD, PhD on 08/17/2022 at 13:33
[2022-08-17 14:00] LABS: Add Manual Diff / Slide Review NO; Basophils Absolute Auto 100 /uL (0-100); Basophils Percent Auto 0.8 % (0-2); Eosinophils Absolute Auto 100 /uL (0-450); Eosinophils Percent Auto 1.2 % (2-4); Hematocrit 40.2 % (41-53); Lymphocytes Absolute Auto 1100 /uL (1100-4500); Lymphocytes Percent Auto 10.6 % (25-40); Mean Corpuscular HGB Conc 34.8 % (30-36); Mean Corpuscular Hemoglobin 30.9 PG (26-34); Mean Corpuscular Volume 88.8 fL (80-100); Monocytes Absolute Auto 600 /uL (0-900); Neutrophils Absolute Auto 8500 /uL (1500-7000); Neutrophils Percent Auto 81.4 % (50-75); Platelet Count 303 X10^3/uL (150-400); Red Blood Cell Count 4.53 X10^6/uL (4.5-5.9); Red Cell Distribution Width 12.6 % (11.6-14.8); White Blood Cell Count 10.4 X10^3/uL (4.5-11.0)
[2022-08-17 14:05] LABS: INR 1.1 (0.9-1.3); Prothrombin Time 13.1 SECONDS (10.1-12.7)
[2022-08-17 14:06] LABS: Influenza A - CEPHEID Flu A NEGATIVE (NEGATIVE); Influenza B - CEPHEID Flu B NEGATIVE (NEGATIVE); Respiratory Syncytial Virus Negative (Negative)
[2022-08-17 14:07] LABS: PTT Partial Thromboplastin Tim 31 SECONDS (26-36)
[2022-08-17 14:09] LABS: Alanine Aminotransferase 19 IU/L (<50); Albumin 3.7 g/dL (3.5-5.0); Albumin Globulin Ratio 1.2 (1.0-2.8); Alkaline Phosphatase 79 U/L (38-126); Aspartate Aminotransferase 19 IU/L (17-59); BUN Creatinine Ratio 16.2 (6-22); Bilirubin Total 0.3 mg/dL (0.2-1.3); Blood Urea Nitrogen 11 mg/dL (9-20); Calcium 8.8 mg/dL (8.4-10.2); Carbon Dioxide 30 mmol/L (22-32); Chloride 95 mmol/L (98-107); Creatine Kinase 63 U/L (55-170); Estimated Glomerular Filt Rate > 60 mL/min (>60); Globulin 3.2 g/dL (1.7-4.1); Glucose 211 mg/dL (80-110); HEMOLYSIS < 15 (0-50); Lipase 168 U/L (23-300); Magnesium 1.6 mg/dL (1.6-2.3); Potassium 4.3 mmol/L (3.4-5.1); Sodium 135 mmol/L (137-145); Total Protein 6.9 g/dL (6.3-8.2)
[2022-08-17 14:10] LABS: COVID-19 CEPHEID 4-PLEX PCR Negative (Negative)
[2022-08-17 14:14] LABS: Bacteria Urine Many (>30); Culture Indicated Urine Specimen Cultured; RBC Urine None Seen (0-5/HPF); Squamous Epithelial Cell Urine 1-5 /HPF (0-5/HPF); WBC Urine 30-100/HPF (0-5/HPF)
--- NOTE | 2022-08-17 14:18 | ED.SKABFB ---
HPI - Skin/Abscess/Foreign Bdy <Tristen Young PA-C - Last Filed: 08/17/22 17:31> General Chief complaint: Skin/Abscess/Foreign Body Stated complaint: severe pain in rt arm, weak, shor of andrea, urin pro Time Seen by Provider: 08/17/22 13:38 Source: patient and family Mode of arrival: Ambulatory History of Present Illness HPI narrative: 62-year-old male with past medical history diabetes, pulmonary embolism presents to the ED with 6 days of multiple right-sided under arm abscesses, dysuria. Patient states he is in a lot of pain, the under arm abscesses started as small red bumps, got big very soon and popped, discharging pus. Patient also states that he has had pain with urination. Patient endorses some chills, denies fever. Patient denies chest pain, shortness of breath, nausea, vomiting, abdominal pain, flank pain, lightheadedness, dizziness, syncope. Patient endorses extreme fatigue. Patient states that he is diabetic, takes insulin, that his medications were changed about 2 months ago. Patient states that his blood sugars were under good control, with A1c of 6. Patient denies alcohol use, drug use. Related Data Home Medications Medication Instructions Recorded Confirmed amlodipine 5 mg tablet 5 mg PO DAILY 11/05/19 11/05/19 glipizide 10 mg tablet 10 mg PO BID 11/05/19 11/05/19 insulin glargine 18 units SUBCUT BID 11/05/19 11/05/19 lisinopril 40 mg PO DAILY 11/05/19 11/05/19 metformin 1,000 mg PO BID 11/05/19 11/05/19 polyethylene glycol 3350 17 g PO BID PRN Constipation 11/05/19 11/05/19 Previous Rx's Medication Instructions Recorded apixaban 5 mg tablet (Eliquis) 5 mg PO BID #60 tabs 11/08/19 cephalexin 500 mg capsule (Keflex) 500 mg PO TID #21 caps 11/08/19 docusate sodium 100 mg capsule 200 mg PO BID PRN Constipation #60 11/08/19 (DOK) caps doxycycline hyclate 100 mg capsule 100 mg PO BID #14 caps 11/08/19 amoxicillin 875 mg-potassium 1 tab PO Q12H #14 tabs 12/28/19 clavulanate 125 mg tablet (Augmentin) prednisone 20 mg tablet 40 mg PO DAILY #8 tabs 12/28/19 cephalexin 500 mg capsule 500 mg PO TID 10 days #30 caps 08/17/22 sulfamethoxazole 800 1 tab PO Q12H 10 days #20 tabs 08/17/22 mg-trimethoprim 160 mg tablet (Bactrim DS) Allergies Allergy/AdvReac Type Severity Reaction Status Date / Time No Known Drug Allergies Allergy Verified 08/17/22 13:03 Review of Systems <Tristen Young PA-C - Last Filed: 08/17/22 17:31> Review of Systems ROS Unobtainable: All systems reviewed & are unremarkable except as noted in HPI and below Constitutional Constitutional: Denies chills, Reports fatigue, Denies fever(s), Denies frequent falls, Denies lethargy and Denies weakness Eyes Eyes: Denies change in vision, Denies eye discharge, Denies irritation and Denies loss of vision ENT Ears, Nose, Mouth, and Throat: Denies change in voice, Denies dizziness, Denies neck pain, Denies sore throat and Denies throat swelling Cardiovascular Cardiovascular: Denies chest pain, Denies irregular heart rhythm, Denies lightheadedness, Denies palpitations, Denies dyspnea, Denies dyspnea on exertion and Denies orthopnea Respiratory Respiratory: Denies cough, Denies dyspnea, Denies dyspnea on exertion and Denies wheezing Gastrointestinal Gastrointestinal: Denies abdominal pain, Denies change in bowel habits, Denies diarrhea, Denies nausea and Denies vomiting Genitourinary Genitourinary: Denies hematuria, Reports dysuria, Denies flank pain, Denies urinary incontinence and Denies urinary urgency Musculoskeletal Musculoskeletal: Denies back pain, Denies muscle weakness, Denies neck pain, Denies numbness and Denies tingling Integumentary/Breasts Skin/Breast: Denies pruritus, Denies erythema, Denies rash and Reports wounds Neurologic Neurologic: Denies behavioral changes, Denies confusion, Denies dizziness, Denies frequent falls, Denies loss of vision, Denies numbness, Denies tingling and Denies weakness Psychiatric Psychiatric: Denies anxiety, Denies behavioral changes, Denies confusion, Denies depression, Denies homicidal ideation and Denies suicidal ideation Endocrine Endocrine: Reports fatigue, Denies flushing and Denies palpitations Hematologic/Lymphatic Hematologic/Lymphatic: Denies easy bruising Allergic/Immunologic Allergic/Immunologic: Denies urticaria, Denies throat swelling and Denies wheezing Patient History <Tristen Young PA-C - Last Filed: 08/17/22 17:31> Medical History Diabetes type 2, uncontrolled Hemorrhoids Hypertension Surgical History History of hip replacement History of hip surgery Status post knee surgery Family History Father Congestive heart failure Mother Cancer Brother No significant medical problems Social History household members: friend(s) Smoking Status: Current every day smoker Smoking Status: Current every day smoker alcohol intake frequency: 0-2 drinks per day Substance Use Type: marijuana Exam <Tristen Young PA-C - Last Filed: 08/17/22 17:31> Narrative Exam Narrative: Const General:?cooperative, healthy appearing and comfortable [facility] Head:?normal to inspection Ears:?hearing grossly normal bilaterally Nose:?external nose normal Face and sinus:?normal facial exam and sinuses nontender Mouth:?oral mucosae normal Throat:?posterior oropharynx normal Eyes General:?appearance normal, both eyes and all related structures Neck Neck:?normal visual inspection and no lymphadenopathy noted Resp Effort & Inspection:?normal respiratory effort Auscultation:?clear to auscultation bilaterally Cardio Rate:?regular rate Rhythm:?regular rhythm GI Abdomen is soft, nondistended, nontender to palpation. There is no CVA tenderness. Integumentary There are 3 indurated and fluctuant, discrete abscesses in the right underarm. The 4th 1 is indurated but not fluctuant. Tenderness to palpation, Erythema, small amount of pus visualized. There is mild overlying erythema. Neuro General:?patient alert, patient awake and patient oriented x3 Initial Vital Signs Initial Vital Signs: Vital Signs Temperature 98 F 08/17/22 13:03 Pulse Rate 87 08/17/22 13:03 Respiratory Rate 18 08/17/22 13:03 Blood Pressure 127/69 08/17/22 13:03 Pulse Oximetry 97 08/17/22 13:03 Oxygen Delivery Method 08/17/22 13:03 <Freddie Hayes DO - Last Filed: 08/17/22 17:34> Initial Vital Signs Initial Vital Signs: Vital Signs Temperature 98 F 08/17/22 13:03 Pulse Rate 87 08/17/22 13:03 Respiratory Rate 18 08/17/22 13:03 Blood Pressure 127/69 08/17/22 13:03 Pulse Oximetry 97 08/17/22 13:03 Oxygen Delivery Method 08/17/22 13:03 Course <Tristen Young PA-C - Last Filed: 08/17/22 17:31> Orders Ordered: ED Orders 08/17/22 13:12 XR chest 2V Stat 08/17/22 13:13 EKG-12 Lead Stat 08/17/22 13:21 Covid-19 + FLU A/B + RSV - PCR Stat 08/17/22 13:46 Complete Blood Count AUTO DIFF Stat Comprehensive Metabolic Panel Stat Lactate (Lactic Acid) Stat Lipase Stat Magnesium Stat Partial Thromboplastin Time Stat Prothrombin Time INR Stat Troponin & CK Cardiac Panel Stat Urine Culture Stat Urine Microscopic Stat Discontinued Medications Cephalexin HCl (Cephalexin 250 Mg Capsule) 500 mg PO NOW ONE Stop: 08/17/22 17:08 Lidocaine HCl (Lidocaine 1% (Pf) 5 Ml) 10 ml INJ NOW ONE Stop: 08/17/22 14:48 Last Admin: 08/17/22 16:03 Dose: 10 ml Documented By: VICTORIANO Oxycodone/Acetaminophen (Oxycodone/Acetaminophen 5/325 Tablet) 1 tab PO NOW ONE Stop: 08/17/22 15:13 Last Admin: 08/17/22 16:03 Dose: 1 tab Documented By: MLRitu Trimethoprim/Sulfamethoxazole (Trimeth/Sulfa 160/800 (Ds) Tablet) 1 tab PO NOW ONE Stop: 08/17/22 17:08 Vital Signs Vital signs: Vital Signs - 8 hr 08/17/22 13:03 Temperature 98 F Pulse Rate 87 Respiratory Rate 18 Blood Pressure 127/69 Pulse Oximetry 97 Oxygen Delivery Method Room Air <Freddie Hayes DO - Last Filed: 08/17/22 17:34> Orders Ordered: ED Orders 08/17/22 13:12 XR chest 2V Stat 08/17/22 13:13 EKG-12 Lead Stat 08/17/22 13:21 Covid-19 + FLU A/B + RSV - PCR Stat 08/17/22 13:46 Complete Blood Count AUTO DIFF Stat Comprehensive Metabolic Panel Stat Lactate (Lactic Acid) Stat Lipase Stat Magnesium Stat Partial Thromboplastin Time Stat Prothrombin Time INR Stat Troponin & CK Cardiac Panel Stat Urine Culture Stat Urine Microscopic Stat Discontinued Medications Cephalexin HCl (Cephalexin 250 Mg Capsule) 500 mg PO NOW ONE Stop: 08/17/22 17:08 Lidocaine HCl (Lidocaine 1% (Pf) 5 Ml) 10 ml INJ NOW ONE Stop: 08/17/22 14:48 Last Admin: 08/17/22 16:03 Dose: 10 ml Documented By: VICTORIANO Oxycodone/Acetaminophen (Oxycodone/Acetaminophen 5/325 Tablet) 1 tab PO NOW ONE Stop: 08/17/22 15:13 Last Admin: 08/17/22 16:03 Dose: 1 tab Documented By: VICTORIANO Trimethoprim/Sulfamethoxazole (Trimeth/Sulfa 160/800 (Ds) Tablet) 1 tab PO NOW ONE Stop: 08/17/22 17:08 Vital Signs Vital signs: Vital Signs - 8 hr 08/17/22 13:03 Temperature 98 F Pulse Rate 87 Respiratory Rate 18 Blood Pressure 127/69 Pulse Oximetry 97 Oxygen Delivery Method Room Air MDM - Skin/Abscess/Foreign Bdy <Tristen Young PA-C - Last Filed: 08/17/22 17:31> Lab Data 08/17/22 13:46 08/17/22 13:46 Labs: Lab Results 08/17/22 08/17/22 08/17/22 Range/Units 13:21 13:46 13:46 WBC 10.4 (4.5-11.0) X10^3/uL RBC 4.53 (4.5-5.9) X10^6/uL Hgb 14.0 (13.5-17.5) g/dL Hct 40.2 L (41-53) % MCV 88.8 (80-100) fL MCH 30.9 (26-34) PG MCHC 34.8 (30-36) % RDW 12.6 (11.6-14.8) % Plt Count 303 (150-400) X10^3/uL Neut % (Auto) 81.4 H (50-75) % Lymph % (Auto) 10.6 L (25-40) % Simpson % (Auto) 6.0 (3-14) % Eos % (Auto) 1.2 L (2-4) % Baso % (Auto) 0.8 (0-2) % Neut # (Auto) 8500 H (8773-8215) /uL Lymph # (Auto) 1100 (3878-9169) /uL Simpson # (Auto) 600 (0-900) /uL Eos # (Auto) 100 (0-450) /uL Baso # (Auto) 100 (0-100) /uL PT 13.1 H (10.1-12.7) SECONDS INR 1.1 (0.9-1.3) APTT 31 (26-36) SECONDS Sodium (137-145) mmol/L Potassium (3.4-5.1) mmol/L Chloride (98-107) mmol/L Carbon Dioxide (22-32) mmol/L BUN (9-20) mg/dL Creatinine (0.66-1.25) mg/dL Estimated GFR (>60) mL/min BUN/Creatinine Ratio (6-22) Glucose (80-110) mg/dL Lactate (0.7-2.1) mmol/L Calcium (8.4-10.2) mg/dL Magnesium (1.6-2.3) mg/dL Total Bilirubin (0.2-1.3) mg/dL AST (17-59) IU/L ALT (<50) IU/L Alkaline Phosphatase (38-126) U/L Total Creatine Kinase (55-170) U/L CK-MB (CK-2) CK-MB (CK-2) Rel Index Troponin I (0.01-0.034) ng/mL Total Protein (6.3-8.2) g/dL Albumin (3.5-5.0) g/dL Globulin (1.7-4.1) g/dL Albumin/Globulin Ratio (1.0-2.8) Lipase (23-300) U/L Urine RBC (0-5/HPF) Urine WBC (0-5/HPF) Ur Squamous Epith Cells (0-5/HPF) Urine Bacteria (None) Ur Culture Indicated? SARS-CoV-2 (PCR) Negative (Negative) Influenza A (RT-PCR) Flu a negative (NEGATIVE) Influenza B (RT-PCR) Flu b negative (NEGATIVE) RSV (PCR) Negative (Negative) 08/17/22 08/17/22 08/17/22 Range/Units 13:46 13:46 13:46 WBC (4.5-11.0) X10^3/uL RBC (4.5-5.9) X10^6/uL Hgb (13.5-17.5) g/dL Hct (41-53) % MCV (80-100) fL MCH (26-34) PG MCHC (30-36) % RDW (11.6-14.8) % Plt Count (150-400) X10^3/uL Neut % (Auto) (50-75) % Lymph % (Auto) (25-40) % Simpson % (Auto) (3-14) % Eos % (Auto) (2-4) % Baso % (Auto) (0-2) % Neut # (Auto) (4344-3883) /uL Lymph # (Auto) (6012-3156) /uL Simpson # (Auto) (0-900) /uL Eos # (Auto) (0-450) /uL Baso # (Auto) (0-100) /uL PT (10.1-12.7) SECONDS INR (0.9-1.3) APTT (26-36) SECONDS Sodium 135 L (137-145) mmol/L Potassium 4.3 (3.4-5.1) mmol/L Chloride 95 L (98-107) mmol/L Carbon Dioxide 30 (22-32) mmol/L BUN 11 (9-20) mg/dL Creatinine 0.68 (0.66-1.25) mg/dL Estimated GFR > 60 (>60) mL/min BUN/Creatinine Ratio 16.2 (6-22) Glucose 211 H (80-110) mg/dL Lactate 1.9 (0.7-2.1) mmol/L Calcium 8.8 (8.4-10.2) mg/dL Magnesium 1.6 (1.6-2.3) mg/dL Total Bilirubin 0.3 (0.2-1.3) mg/dL AST 19 (17-59) IU/L ALT 19 (<50) IU/L Alkaline Phosphatase 79 (38-126) U/L Total Creatine Kinase 63 (55-170) U/L CK-MB (CK-2) TNP CK-MB (CK-2) Rel Index TNP Troponin I 0.015 (0.01-0.034) ng/mL Total Protein 6.9 (6.3-8.2) g/dL Albumin 3.7 (3.5-5.0) g/dL Globulin 3.2 (1.7-4.1) g/dL Albumin/Globulin Ratio 1.2 (1.0-2.8) Lipase 168 (23-300) U/L Urine RBC None seen (0-5/HPF) Urine WBC 30-100/hpf H (0-5/HPF) Ur Squamous Epith Cells 1-5 /hpf (0-5/HPF) Urine Bacteria Many (>30) H (None) Ur Culture Indicated? Specimen cultured SARS-CoV-2 (PCR) (Negative) Influenza A (RT-PCR) (NEGATIVE) Influenza B (RT-PCR) (NEGATIVE) RSV (PCR) (Negative) Urine Dip Bedside Urine Glucose Negative Bedside Urine Bilirubin - Negative Bedside Urine Ketone - Negative Urine Specific [place] 1.015 Bedside Urine Occult Blood + Bedside Urine pH 6.0 Bedside Urine Protein ++ 100 Bedside Urine Urobilinogen +/- 1mg Bedside Urine Nitrite - Negative Bedside Urine Leukocytes + 70 Esterase MDM Narrative Medical decision making narrative: 62-year-old male with past medical history diabetes, pulmonary embolism presents to the ED with 6 days of multiple right-sided under arm abscesses, dysuria. Concern for abscesses versus UTI versus pyelonephritis versus cellulitis versus sepsis versus other. Patient's blood sugar is elevated to 211 today, which could be likely contributing to his abscesses and or or UTI. Labs otherwise within normal limits. Patient is not septic. Chest x-ray without acute findings. EKG with sinus rhythm with frequent consecutive premature ventricular complexes. No acute ST-T changes. Patient's abscesses were incised and drained, iodoform packing put in. Discussed with patient the need to re-evaluate and possibly repack the wounds in 24-48 hours. Patient started on Bactrim and cephalexin. Pain control with Tylenol/ibuprofen advised. Patient agrees to go to his PCP or urgent care or return to the ED for this. ED return precautions otherwise also discussed with patient. Patient verbalized understanding. Medical records reviewed: Yes <Freddie Hayes DO - Last Filed: 08/17/22 17:34> Lab Data Labs: Lab Results 08/17/22 08/17/22 08/17/22 Range/Units 13:21 13:46 13:46 WBC 10.4 (4.5-11.0) X10^3/uL RBC 4.53 (4.5-5.9) X10^6/uL Hgb 14.0 (13.5-17.5) g/dL Hct 40.2 L (41-53) % MCV 88.8 (80-100) fL MCH 30.9 (26-34) PG MCHC 34.8 (30-36) % RDW 12.6 (11.6-14.8) % Plt Count 303 (150-400) X10^3/uL Neut % (Auto) 81.4 H (50-75) % Lymph % (Auto) 10.6 L (25-40) % Simpson % (Auto) 6.0 (3-14) % Eos % (Auto) 1.2 L (2-4) % Baso % (Auto) 0.8 (0-2) % Neut # (Auto) 8500 H (1519-8241) /uL Lymph # (Auto) 1100 (7335-7943) /uL Simpson # (Auto) 600 (0-900) /uL Eos # (Auto) 100 (0-450) /uL Baso # (Auto) 100 (0-100) /uL PT 13.1 H (10.1-12.7) SECONDS INR 1.1 (0.9-1.3) APTT 31 (26-36) SECONDS Sodium (137-145) mmol/L Potassium (3.4-5.1) mmol/L Chloride (98-107) mmol/L Carbon Dioxide (22-32) mmol/L BUN (9-20) mg/dL Creatinine (0.66-1.25) mg/dL Estimated GFR (>60) mL/min BUN/Creatinine Ratio (6-22) Glucose (80-110) mg/dL Lactate (0.7-2.1) mmol/L Calcium (8.4-10.2) mg/dL Magnesium (1.6-2.3) mg/dL Total Bilirubin (0.2-1.3) mg/dL AST (17-59) IU/L ALT (<50) IU/L Alkaline Phosphatase (38-126) U/L Total Creatine Kinase (55-170) U/L CK-MB (CK-2) CK-MB (CK-2) Rel Index Troponin I (0.01-0.034) ng/mL Total Protein (6.3-8.2) g/dL Albumin (3.5-5.0) g/dL Globulin (1.7-4.1) g/dL Albumin/Globulin Ratio (1.0-2.8) Lipase (23-300) U/L Urine RBC (0-5/HPF) Urine WBC (0-5/HPF) Ur Squamous Epith Cells (0-5/HPF) Urine Bacteria (None) Ur Culture Indicated? SARS-CoV-2 (PCR) Negative (Negative) Influenza A (RT-PCR) Flu a negative (NEGATIVE) Influenza B (RT-PCR) Flu b negative (NEGATIVE) RSV (PCR) Negative (Negative) 08/17/22 08/17/22 08/17/22 Range/Units 13:46 13:46 13:46 WBC (4.5-11.0) X10^3/uL RBC (4.5-5.9) X10^6/uL Hgb (13.5-17.5) g/dL Hct (41-53) % MCV (80-100) fL MCH (26-34) PG MCHC (30-36) % RDW (11.6-14.8) % Plt Count (150-400) X10^3/uL Neut % (Auto) (50-75) % Lymph % (Auto) (25-40) % Simpson % (Auto) (3-14) % Eos % (Auto) (2-4) % Baso % (Auto) (0-2) % Neut # (Auto) (7814-4104) /uL Lymph # (Auto) (1052-3413) /uL Simpson # (Auto) (0-900) /uL Eos # (Auto) (0-450) /uL Baso # (Auto) (0-100) /uL PT (10.1-12.7) SECONDS INR (0.9-1.3) APTT (26-36) SECONDS Sodium 135 L (137-145) mmol/L Potassium 4.3 (3.4-5.1) mmol/L Chloride 95 L (98-107) mmol/L Carbon Dioxide 30 (22-32) mmol/L BUN 11 (9-20) mg/dL Creatinine 0.68 (0.66-1.25) mg/dL Estimated GFR > 60 (>60) mL/min BUN/Creatinine Ratio 16.2 (6-22) Glucose 211 H (80-110) mg/dL Lactate 1.9 (0.7-2.1) mmol/L Calcium 8.8 (8.4-10.2) mg/dL Magnesium 1.6 (1.6-2.3) mg/dL Total Bilirubin 0.3 (0.2-1.3) mg/dL AST 19 (17-59) IU/L ALT 19 (<50) IU/L Alkaline Phosphatase 79 (38-126) U/L Total Creatine Kinase 63 (55-170) U/L CK-MB (CK-2) TNP CK-MB (CK-2) Rel Index TNP Troponin I 0.015 (0.01-0.034) ng/mL Total Protein 6.9 (6.3-8.2) g/dL Albumin 3.7 (3.5-5.0) g/dL Globulin 3.2 (1.7-4.1) g/dL Albumin/Globulin Ratio 1.2 (1.0-2.8) Lipase 168 (23-300) U/L Urine RBC None seen (0-5/HPF) Urine WBC 30-100/hpf H (0-5/HPF) Ur Squamous Epith Cells 1-5 /hpf (0-5/HPF) Urine Bacteria Many (>30) H (None) Ur Culture Indicated? Specimen cultured SARS-CoV-2 (PCR) (Negative) Influenza A (RT-PCR) (NEGATIVE) Influenza B (RT-PCR) (NEGATIVE) RSV (PCR) (Negative) Urine Dip Bedside Urine Glucose Negative Bedside Urine Bilirubin - Negative Bedside Urine Ketone - Negative Urine Specific [place] 1.015 Bedside Urine Occult Blood + Bedside Urine pH 6.0 Bedside Urine Protein ++ 100 Bedside Urine Urobilinogen +/- 1mg Bedside Urine Nitrite - Negative Bedside Urine Leukocytes + 70 Esterase Discharge Plan Departure Patient Disposition: Home Clinical Impression: Abscess, Acute UTI Instructions: DI for Urinary Tract Infection (UTI), DI for Skin Abscess Activity Restrictions/Additional Instructions: You were evaluated in the ED today for urinary symptoms and abscesses in your right underarm. Your abscesses were drained, packing put in to facilitate continued drainage. You were also diagnosed with a urinary tract infection. You have been prescribed 2 antibiotics, both of which will address the skin infection as well as the urinary tract infection. Please take those as prescribed. Please follow-up with your PCP in 2 days. You will need to have the wound packing evaluated and possibly replaced in 24-48 hours. You may see your PCP, go to an urgent care or return to the ED for it. Return to the ED if you experience any chest pain, shortness of breath, persistent vomiting, fevers, chills. You may take Tylenol or ibuprofen for pain. Prescriptions: New cephalexin 500 mg capsule 500 mg PO TID 10 Days Qty: 30 0RF sulfamethoxazole-trimethoprim [Bactrim DS] 800-160 mg tablet 1 tab PO Q12H 10 Days Qty: 20 0RF No Action glipizide 10 mg Tablet 10 mg PO BID amlodipine 5 mg Tablet 5 mg PO DAILY insulin glargine 18 units SUBCUT BID lisinopril 40 mg PO DAILY metformin 500 mg tablet 1,000 mg PO BID polyethylene glycol 3350 17 g PO BID PRN (Reason: Constipation) docusate sodium [DOK] 100 mg Capsule 200 mg PO BID PRN (Reason: Constipation) Qty: 60 0RF doxycycline hyclate 100 mg capsule 100 mg PO BID Qty: 14 0RF cephalexin [Keflex] 500 mg capsule 500 mg PO TID Qty: 21 0RF Eliquis 5 mg tablet 5 mg PO BID Qty: 60 2RF prednisone 20 mg tablet 40 mg PO DAILY Qty: 8 0RF amoxicillin-pot clavulanate [Augmentin] 875-125 mg tablet 1 tab PO Q12H Qty: 14 0RF Referrals: Tamiko Silva ARNP [Primary Care Provider] - Stand Alone Forms: Patient Portal/API <Freddie Hayes DO - Last Filed: 08/17/22 17:34> Cosign ED Attending Cosignature Attestation: Dr Hayes Co-Sign Statement: I was available for consultation during this patient's emergency department visit. This chart is signed by myself for administrative purposes only. I did not have direct contact with this patient during this visit. They were seen independently by the APC.
[2022-08-17 14:21] LABS: Troponin I 0.015 ng/mL (0.01-0.034)
[2022-08-17 15:07] LABS: Lactate (Lactic Acid) 1.9 mmol/L (0.7-2.1)
[2022-08-17] MEDS: OXYCODONE/ACETAMINOPHEN 5/325 TABLET 1 TAB PO (16:03)
[2022-08-17] MEDS: LIDOCAINE 1% (PF) 5 ML 10 ML INJ (16:03)
[2022-08-17] MEDS: cephALEXin 250 MG CAPSULE 500 MG PO (17:37)
[2022-08-17] MEDS: TRIMETH/SULFA 160/800 (DS) TABLET 1 TAB PO (17:37)
[2022-08-17 17:46] VITALS: BP 112/69; PULSE 76; RESP 14; O2SAT 96
== END 2022-08-17 17:59 | disposition home or self-care (01) ==
PROVIDERS: Emergency Medicine; Emergency Provider Student in an Organized Health Care Education/Training Program; PCP Nurse Practitioner
DX: L02.413 Cutaneous abscess of right upper limb (principal); N39.0 Urinary tract infection, site not specified; R07.9 Chest pain, unspecified; Z79.01 Long term (current) use of anticoagulants; Z79.899 Other long term (current) drug therapy; Z20.822 Contact with and (suspected) exposure to COVID-19
CPT/HCPCS: 0241U; 36415; 71046; 80053; 81003; 81015; 82550; 83605; 83690; 83735; 84484; 85025; 85610; 85730; 87077; 87086; 87186; 93005; 99284

== ENCOUNTER → 2023-02-01 08:16 | Outpatient (CLI) | payer SELFPAY ==
[2019-11-05 00:38] VITALS: BMI 33.0
== END ==
PROVIDERS: PCP Nurse Practitioner; Visit Provider Student in an Organized Health Care Education/Training Program
DX: R30.0 Dysuria (principal)
CPT/HCPCS: 87077; 87086; 87186

== ENCOUNTER 2024-05-03 11:33 | Emergency (ER) | payer OTHER, SELFPAY ==
[2019-11-05 00:38] VITALS: BMI 33.0
[2024-05-03 11:48] VITALS: BP 134/74; PULSE 74; RESP 24; TEMP 37.2; O2SAT 98; BMI 31.5
--- NOTE | 2024-05-03 12:34 | DI.RAD.S_ITS ---
PROCEDURE: XR CHEST 2V INDICATIONS: Cough, SOB TECHNIQUE: 2 views of the chest were acquired. COMPARISON: [facility], CR, XR CHEST 2V, 08/17/2022, 13:18. [facility], CR, XR CHEST 1V, 04/21/2021, 17:36. FINDINGS: Surgical changes and devices: None. Lungs and pleura: Lungs are clear. No pleural effusions or pneumothorax. Mediastinum: Mediastinal contours are normal. Heart size is normal. Bones and chest wall: No suspicious bony abnormalities. Soft tissues appear unremarkable. IMPRESSION: No acute cardiopulmonary abnormality is seen. Dictated by: Molina Saravia M.D. on 05/03/2024 at 12:57 Approved by: Molina Saravia M.D. on 05/03/2024 at 12:57
[2024-05-03 12:48] LABS: Adenovirus Not Detected (Not Detect); B. parapertussis Not Detected (Not Detecte); Bordetella pertussis Not Detected (Not Detect); Chlamydophila pneumoniae Not Detected (Not Detect); Coronavirus 229E Not Detected (Not Detect); Coronavirus HKU1 Not Detected (Not Detect); Coronavirus NL 63 Not Detected (Not Detect); Coronavirus OC43 Not Detected (Not Detect); Human Metapneumovirus Not Detected (Not Detect); Human Rhinovirus/Enterovirus Detected (Not Detect); Influenza A Not Detected (Not Detect); Influenza B Not Detected (Not Detect); Mycoplasma pneumoniae Not Detected (Not Detect); Parainfluenza Virus 1 Not Detected (Not Detect); Parainfluenza Virus 2 Not Detected (Not Detect); Parainfluenza Virus 3 Not Detected (Not Detect); Parainfluenza Virus 4 Not Detected (Not Detect); Respiratory Syncytial Virus Not Detected (Not Detect); SARS- CoV-2 Not Detected (Not Detecte)
--- NOTE | 2024-05-03 13:07 | ED_ITS ---
HPI - URI/Sore Throat <Abdirahman Monson PA-C - Last Filed: 05/03/24 13:20> General Chief Complaint: Upper Respiratory Symptoms Stated Complaint: headache, cough, low energy t-7 Time Seen by Provider: 05/03/24 13:06 Source: patient Mode of arrival: Ambulatory History of Present Illness HPI Narrative: This is a 64-year-old male presents emergency room due to rhinorrhea, cough, myalgias, fatigue for the last week. States that his brother recently had something similar. Denies any chest pain, shortness of breath, fevers, nausea, vomiting, or any other concerning signs or symptoms. Related Data Home Medications Medication Instructions Recorded Confirmed amlodipine 5 mg tablet 5 mg PO DAILY 11/05/19 02/01/23 glipizide 10 mg tablet 10 mg PO BID 11/05/19 02/01/23 insulin glargine 18 units SUBCUT BID 11/05/19 02/01/23 lisinopril 40 mg PO DAILY 11/05/19 02/01/23 metformin 1,000 mg PO BID 11/05/19 02/01/23 polyethylene glycol 3350 17 g PO BID PRN Constipation 11/05/19 02/01/23 Previous Rx's Medication Instructions Recorded apixaban 5 mg tablet (Eliquis) 5 mg PO BID #60 tabs 11/08/19 docusate sodium 100 mg capsule 200 mg (2 x 100 mg) PO BID PRN 11/08/19 (DOK) Constipation #60 caps prednisone 20 mg tablet 40 mg (2 x 20 mg) PO DAILY #8 tabs 12/28/19 Allergies Allergy/AdvReac Type Severity Reaction Status Date / Time No Known Drug Allergies Allergy Verified 02/01/23 09:02 Review of Systems <Abdirahman Monson PA-C - Last Filed: 05/03/24 13:20> Review of Systems Narrative: GENERAL: Reports fatigue, myalgia Denies chills, , malaise, fever, sweats. HEENT: Denies sinus pain, ear pain, sore throat, difficulty swallowing, dizziness. RESPIRATORY: Reports cough, rhinorrhea Denies dyspnea, , wheezing, hemoptysis, sputum. CARDIOVASCULAR: Denies chest pain, palpitations, orthopnea, edema, GASTROINTESTINAL: Denies nausea, vomiting, abdominal pain, diarrhea, constipation, melena. : Denies dysuria, frequency, incontinence, hematuria, urinary retention. MUSCULOSKELETAL: denies weakness, joint pain, or bony pain SKIN: Denies rash, skin lesions, or other NEUROLOGIC: Denies weakness, headache, numbness, change in speech, confusion, seizures, incoordination. PSYCHIATRIC: No concerning psychosocial issues. 12 point review of systems is negative except for those stated above Patient History <Abdirahman Monson PA-C - Last Filed: 05/03/24 13:20> Medical History (Updated 05/03/24 @ 13:20 by Abdirahman Monson PA-C) Hemorrhoids Diabetes type 2, uncontrolled Hypertension Surgical History History of hip surgery History of hip replacement Status post knee surgery Family History Father Congestive heart failure Mother Cancer Brother No significant medical problems Social History household members: friend(s) Smoking Status: Current every day smoker Smoking Status: Current every day smoker tobacco type: cigarettes alcohol intake frequency: a few times a month Substance Use Type: marijuana Exam <Abdirahman Monson PA-C - Last Filed: 05/03/24 13:20> Narrative Exam Narrative: GENERAL: Well-developed patient, in mild distress. HEAD: Atraumatic. Normocephalic. EYES: Pupils equal round and reactive. Extraocular motions intact. No scleral icterus. No injection or drainage. ENT: Nose without bleeding, purulent drainage. Throat without erythema, tonsillar hypertrophy or exudate. Airway patent. NECK: Trachea midline. Non tender EXTREMITIES: No edema or joint tenderness. NEURO: AOx3. SKIN: No rash or erythema of visible areas CARDIOVASCULAR: Regular rate and rhythm without murmurs, gallops, or rubs. RESPIRATORY: Clear to auscultation. Breath sounds equal bilaterally. No wheezes, rales, or rhonchi. GASTROINTESTINAL: Abdomen soft, non-tender, nondistended. BACK: Nontender without deformity or crepitance. No flank tenderness. Initial Vital Signs Initial Vital Signs: Vital Signs Temperature 99 F 05/03/24 11:48 Pulse Rate 74 05/03/24 11:48 Respiratory Rate 24 05/03/24 11:48 Blood Pressure 134/74 05/03/24 11:48 Pulse Oximetry 98 05/03/24 11:48 Oxygen Delivery Method Room Air 05/03/24 11:48 <Mary Cabrales MD - Last Filed: 05/03/24 18:13> Initial Vital Signs Initial Vital Signs: Vital Signs Temperature 99 F 05/03/24 11:48 Pulse Rate 74 05/03/24 11:48 Respiratory Rate 24 05/03/24 11:48 Blood Pressure 134/74 05/03/24 11:48 Pulse Oximetry 98 05/03/24 11:48 Oxygen Delivery Method Room Air 05/03/24 11:48 Course <Abdirahman Monson PA-C - Last Filed: 05/03/24 13:20> Orders Ordered: ED Orders 05/03/24 11:55 Respiratory Panel (Film Array) Stat 05/03/24 12:34 XR chest 2V Stat Vital Signs Vital signs: Vital Signs - 8 hr 05/03/24 11:48 05/03/24 13:30 Temperature 99 F Pulse Rate 74 70 Respiratory Rate 24 20 Blood Pressure 134/74 125/72 Pulse Oximetry 98 98 Oxygen Delivery Method Room Air Room Air <Mary Cabrales MD - Last Filed: 05/03/24 18:13> Orders Ordered: ED Orders 05/03/24 11:55 Respiratory Panel (Film Array) Stat 05/03/24 12:34 XR chest 2V Stat Vital Signs Vital signs: Vital Signs - 8 hr 05/03/24 11:48 05/03/24 13:30 Temperature 99 F Pulse Rate 74 70 Respiratory Rate 24 20 Blood Pressure 134/74 125/72 Pulse Oximetry 98 98 Oxygen Delivery Method Room Air Room Air MDM - URI/Sore Throat <SARA Root Last Filed: 05/03/24 13:20> Lab Data Labs: Lab Results 05/03/24 Range/Units 11:55 Chlamy pneumoniae PCR Not detected (Not Detect) Adenovirus (PCR) Not detected (Not Detect) B. pertussis DNA (PCR) Not detected (Not Detect) B.parapertussis DNA PCR Not detected (Not Detecte) Coronavirus OC43 (PCR) Not detected (Not Detect) Coronavirus HKU1 (PCR) Not detected (Not Detect) Coronavirus 229E (PCR) Not detected (Not Detect) SARS-CoV-2 (PCR) Not detected (Not Detecte) Coronavirus NL63 (PCR) Not detected (Not Detect) Human Metapneumovir PCR Not detected (Not Detect) Influenza Type A (PCR) Not detected (Not Detect) Influenza Type B (PCR) Not detected (Not Detect) M. pneumoniae (PCR) Not detected (Not Detect) Parainfluenza 1 (PCR) Not detected (Not Detect) Parainfluenza 2 (PCR) Not detected (Not Detect) Parainfluenza 3 (PCR) Not detected (Not Detect) Parainfluenza 4 (PCR) Not detected (Not Detect) RSV (PCR) Not detected (Not Detect) Entero/Rhino (PCR) Detected H (Not Detect) Imaging Data Chest x-ray: Radiologist's Impression: [address] [address] XRay Report Signed Patient: Rom Finch Jr MR#: [id number] : 1960 Acct:[id number] Age/Sex: 64 / M Date of Service: 05/03/24 Loc: ED Accession Number: [id number] Procedure: XR chest 2V Ordering Provider: Abdirahman Monson PA-C PROCEDURE: XR CHEST 2V INDICATIONS: Cough, SOB TECHNIQUE: 2 views of the chest were acquired. COMPARISON: [facility], , XR CHEST 2V, 08/17/2022, 13:18. [facility], XR CHEST 1V, 04/21/2021, 17:36. FINDINGS: Surgical changes and devices: None. Lungs and pleura: Lungs are clear. No pleural effusions or pneumothorax. Mediastinum: Mediastinal contours are normal. Heart size is normal. Bones and chest wall: No suspicious bony abnormalities. Soft tissues appear unremarkable. IMPRESSION: No acute cardiopulmonary abnormality is seen. Dictated by: Molina Saravia M.D. on 05/03/2024 at 12:57 Approved by: Molina Saravia M.D. on 05/03/2024 at 12:57 [facility] Narrative Medical decision making narrative: ED course: This is a 64-year-old male presents emergency department due to URI symptoms. Respiratory panel came back positive for enterovirus/rhinovirus. Chest x-ray ordered which was unremarkable. Recommended supportive care for a self-limited disease. Vitals and physical exam reassuring. CC: Cough Complicating co-morbidities: History of diabetes, pulmonary embolism Data collected from: Previous notes Medical records reviewed: Patient was last seen roughly a year and a half ago due to right arm pain. History of diabetes, pulmonary embolism. Was noted to have multiple abscesses affecting his right arm. Abscesses were incised and drained and patient was started on Bactrim and Keflex. Differential considered, but not limited to: Influenza, COVID, viral URI, bacterial sinusitis Exam documented above, pertinent findings include: Exam reassuring Lab Test results independently reviewed as above. Pertinent findings: Respiratory panel positive for enterovirus/rhinovirus Imaging studies independently reviewed: Chest x-ray unremarkable Scores Used: None MIPS Elements: None Consultations: None Treatments: None Re-evaluations: None Discussion: Discussed plan with the patient was comfortable with the plan Diagnosis: Enterovirus/rhinovirus Disposition: see below, along with detailed discharge instructions that have be en reviewed with patient as well as indications for ED re-evaluation and additional outpatient follow up <Mary Cabrales MD - Last Filed: 05/03/24 18:13> Lab Data Labs: Lab Results 05/03/24 Range/Units 11:55 Chlamy pneumoniae PCR Not detected (Not Detect) Adenovirus (PCR) Not detected (Not Detect) B. pertussis DNA (PCR) Not detected (Not Detect) B.parapertussis DNA PCR Not detected (Not Detecte) Coronavirus OC43 (PCR) Not detected (Not Detect) Coronavirus HKU1 (PCR) Not detected (Not Detect) Coronavirus 229E (PCR) Not detected (Not Detect) SARS-CoV-2 (PCR) Not detected (Not Detecte) Coronavirus NL63 (PCR) Not detected (Not Detect) Human Metapneumovir PCR Not detected (Not Detect) Influenza Type A (PCR) Not detected (Not Detect) Influenza Type B (PCR) Not detected (Not Detect) M. pneumoniae (PCR) Not detected (Not Detect) Parainfluenza 1 (PCR) Not detected (Not Detect) Parainfluenza 2 (PCR) Not detected (Not Detect) Parainfluenza 3 (PCR) Not detected (Not Detect) Parainfluenza 4 (PCR) Not detected (Not Detect) RSV (PCR) Not detected (Not Detect) Entero/Rhino (PCR) Detected H (Not Detect) Discharge Plan Departure Patient Disposition: Home Clinical Impression: Upper respiratory infection, viral Activity Restrictions/Additional Instructions: Thank you for coming to the [facility] Emergency Department today. Your chest x-ray showed no evidence of pneumonia or any other lung abnormalities. Your respiratory panel came back positive for enterovirus/rhinovirus. This is essentially ?the common cold?. This is viral in nature and should improve on its own within the next week or so. You may use [id number] cough and cold medications to help with your symptoms. Please return to the emergency department if you develop any significant shortness of breath, chest pain, high fevers that do not improve with Tylenol, or any other concerning signs or symptoms. I hope you feel better soon. Please follow up with your primary care provider within a week if your symptoms continue. If you do not have a primary care provider please contact the [facility] Resource line at [phone]. They will ask some questions about your medical history and help you get set up with a provider in the community. Prescriptions: No Action glipizide 10 mg Tablet 10 mg PO BID amlodipine 5 mg Tablet 5 mg PO DAILY insulin glargine 18 units SUBCUT BID lisinopril 40 mg PO DAILY metformin 500 mg tablet 1,000 mg PO BID polyethylene glycol 3350 17 g PO BID PRN (Reason: Constipation) docusate sodium [DOK] 100 mg Capsule 200 mg PO BID PRN (Reason: Constipation) Qty: 60 0RF Eliquis 5 mg tablet 5 mg PO BID Qty: 60 2RF prednisone 20 mg tablet 40 mg PO DAILY Qty: 8 0RF Referrals: Tamiko Silva ARNP [Primary Care Provider] - Stand Alone Forms: Patient Portal/API ED Sign-out <Mary Cabrales MD - Last Filed: 05/03/24 18:13> Cosign ED Attending Cossirenaature Attestation: I was immediately available in the department for consultation throughout this patient's visit. Mary Cabrales MD
[2024-05-03 13:30] VITALS: BP 125/72; PULSE 70; RESP 20; O2SAT 98
== END 2024-05-03 13:31 | disposition home or self-care (01) ==
PROVIDERS: Emergency Medicine; Emergency Provider Physician Assistant Medical; PCP Nurse Practitioner
DX: J06.9 Acute upper respiratory infection, unspecified (principal); B34.8 Other viral infections of unspecified site; R06.02 Shortness of breath; Z11.52 Encounter for screening for COVID-19; Z79.899 Other long term (current) drug therapy
CPT/HCPCS: 71046; 87633; 99283

== ENCOUNTER 2025-02-02 12:15 | Inpatient (IN) | payer OTHER, SELFPAY ==
[2019-11-05 00:38] VITALS: BMI 33.0
[2025-02-02] VITALS (19 sets, daily range): BP systolic 89–127; BP diastolic 57–68; PULSE 51–104; RESP 15–25; TEMP 36.3–37.4; O2SAT 93–909; BMI 29.9
[2025-02-02] MEDS: SODIUM CHLORIDE 0.9% 2,190 ML 730 ML IV (12:15)
--- NOTE | 2025-02-02 12:28 | EKG_ITS ---
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
--- NOTE | 2025-02-02 12:28 | DI.RAD.S_ITS ---
PROCEDURE: XR CHEST 1V INDICATIONS: suspected sepsis TECHNIQUE: One view of the chest was acquired. COMPARISON: [facility], CR, XR CHEST 2V, 05/03/2024, 11:49. FINDINGS: Surgical changes and devices: None. Lungs and pleura: Lungs are clear. No pleural effusions or pneumothorax. Mediastinum: Mediastinal contours appear normal. Heart size is normal. Bones and chest wall: No suspicious bony lesions. Overlying soft tissues appear unremarkable. IMPRESSION: No acute cardiopulmonary abnormality is seen. Dictated by: Cris Batres M.D. on 02/02/2025 at 12:27 Approved by: Cris Batres M.D. on 02/02/2025 at 12:29
[2025-02-02 12:36] LABS: Add Manual Diff / Slide Review NO; Hematocrit 40.0 % (41-53); Hemoglobin 13.9 g/dL (13.5-17.5); Lymphocytes Absolute Auto 1100 /uL (1100-4500); Mean Corpuscular HGB Conc 34.7 % (30-36); Mean Corpuscular Hemoglobin 31.2 PG (26-34); Mean Corpuscular Volume 89.8 fL (80-100); Platelet Count 203 X10^3/uL (150-400)
[2025-02-02 12:39] LABS: INR 1.3 (0.9-1.3); Prothrombin Time 15.1 SECONDS (9.4-12.5)
[2025-02-02 12:42] LABS: PTT Partial Thromboplastin Tim 29 SECONDS (25.1-36.5)
[2025-02-02 12:43] LABS: Alanine Aminotransferase 27 IU/L (<50); Albumin 3.7 g/dL (3.5-5.0); Albumin Globulin Ratio 1.2 (1.0-2.8); Alkaline Phosphatase 61 U/L (38-126); Blood Urea Nitrogen 24 mg/dL (9-20); Calcium 7.9 mg/dL (8.4-10.2); Carbon Dioxide 20 mmol/L (22-32); Chloride 98 mmol/L (98-107); Estimated Glomerular Filt Rate > 60 mL/min (>60); Globulin 3.0 g/dL (1.7-4.1); Glucose 118 mg/dL (70-99); HEMOLYSIS < 15 (0-50); Lipase 75 U/L (23-300); Potassium 4.1 mmol/L (3.4-5.1); Sodium 128 mmol/L (137-145); Total Protein 6.7 g/dL (6.3-8.2)
[2025-02-02 12:44] LABS: Lactate (Lactic Acid) 1.9 mmol/L (0.7-2.1)
--- NOTE | 2025-02-02 12:45 | DI.US.S_ITS ---
PROCEDURE: US PERIPH VENOUS LOW EXTREM BI INDICATIONS: left lower ext swelling( left) TECHNIQUE: Real-time imaging, as well as color and pulse Doppler interrogation, were performed of the deep veins of both legs from the inguinal ligament to the popliteal fossa, with documentation of the visualized calf veins. COMPARISON: None. FINDINGS: Right: The common femoral, femoral, popliteal, and the visualized calf veins are normally compressible, and free of intraluminal thrombus. Color and pulse Doppler demonstrate normal phasic intravascular flow. There is normal augmentation response to distal compression maneuver. Left: The common femoral, femoral, popliteal, and the visualized calf veins are normally compressible, and free of intraluminal thrombus. Color and pulse Doppler demonstrate normal phasic intravascular flow. There is normal augmentation response to distal compression maneuver. IMPRESSION: No findings of deep venous thrombosis in either lower extremity. Dictated by: Cris Batres M.D. on 02/02/2025 at 14:27 Approved by: Cris Batres M.D. on 02/02/2025 at 14:28
[2025-02-02] MEDS: VANCOMYCIN 2,000 MG/400 ML PIGGYBACK 200 MG IV (12:47)
--- NOTE | 2025-02-02 12:48 | DI.CT.S_ITS ---
PROCEDURE: CT ANGIO CHEST PE PROTOCOL INDICATIONS: sob/pulmonary embolus TECHNIQUE: After the administration of intravenous contrast, 2 mm thick sections acquired from the pulmonary apices to the posterior costophrenic angles. 3-dimensional maximum intensity projection (MIP) coronal and sagittal reformats were then acquired through the thorax. For radiation dose reduction, the following was used: automated exposure control, adjustment of mA and/or kV according to patient size. COMPARISON: None. FINDINGS: Image quality: Diagnostic. Pulmonary arteries: Pulmonary arteries are normal in size, and demonstrate no intraluminal filling defects to suggest central pulmonary embolism. Lower Neck: No enlarged lymph nodes. Thyroid: No thyroid nodules which require sonographic follow up, per consensus guidelines. Axillae: No enlarged lymph nodes. Chest Wall: Unremarkable. Bones: Unremarkable. Lungs and Pleura: No pneumothorax or pleural effusions. No consolidation or suspicious nodules. Heart: Heart size is normal. No pericardial effusion. Thoracic Vessels: No aortic aneurysm. Mediastinum and Flor: No enlarged lymph nodes. Esophagus: No wall thickening. No hiatal hernia. Upper Abdomen: Visualized upper abdomen solid organs and bowel loops appear normal. IMPRESSION: No pulmonary embolus. No acute cardiopulmonary process. Dictated by: Cris Batres M.D. on 02/02/2025 at 12:35 Approved by: Cris Batres M.D. on 02/02/2025 at 12:46
--- NOTE | 2025-02-02 12:48 | DI.CT.S_ITS ---
PROCEDURE: CT ABDOMEN PELVIS W CON INDICATIONS: left lower quadrant pain TECHNIQUE: After the administration of intravenous contrast, axial sections acquired from the lung bases to the pubic symphysis. Coronal and sagittal reformats were performed. For radiation dose reduction, the following was used: automated exposure control, adjustment of mA and/or kV according to patient size. COMPARISON: None. FINDINGS: Image quality: Diagnostic. Lower Chest: No significant findings. ABDOMEN: Liver: No solid mass. Gallbladder: No radiopaque gallstones or wall thickening. Biliary ducts: No biliary dilation. Pancreas: No ductal dilation. Spleen: Size is within normal limits. Adrenal Glands: No adrenal nodules. Kidneys and Ureters: No hydronephrosis. No solid mass. No complex renal cystic lesion which requires follow up. Stomach and Bowel: Normal colonic caliber, without significant wall thickening. Peritoneum: No abnormal intraperitoneal fluid. No free air. There is mild mesenteric inflammation along the anti mesenteric border of the sigmoid with an area of fat with a halo of inflammation. Adjacent are several mildly inflamed iliac lymph nodes. Ventral Wall: No significant ventral hernia. Abdominal Nodes: No retroperitoneal or mesenteric adenopathy by size criteria. Vessels: Aorta and inferior vena cava are normal in size. PELVIS: Pelvic Organs: Unremarkable. Bladder: No bladder wall thickening, accounting for underdistention. Pelvic Nodes: No enlarged lymph nodes. Miscellaneous: No inguinal hernias are seen. Bones: No aggressive osseous abnormality. Bilateral YVONNE hardware is present. IMPRESSION: Findings suggestive of sigmoid epiploic appendagitis. Dictated by: Cris Batres M.D. on 02/02/2025 at 13:28 Approved by: Cris Batres M.D. on 02/02/2025 at 13:36
[2025-02-02 12:59] LABS: Procalcitonin 1.98 ng/mL (<0.5)
[2025-02-02] MEDS: PIPERACILLIN/TAZO 4.5 GM in SODIUM CHLORIDE 0.9% 100 ML IV (13:36)
[2025-02-02] MEDS: VANCOMYCIN PER PHARMACY 1 REQUEST MISC (13:41)
--- NOTE | 2025-02-02 13:45 | ED.SKABFB ---
HPI - Skin/Abscess/Foreign Bdy General Chief complaint: Skin/Abscess/Foreign Body Stated complaint: N/V/D for few days,hypotensive Source: patient and EMS Mode of arrival: EMS Limitations: no limitations History of Present Illness HPI narrative: 65-year-old male with a past medical history of diabetes, pulmonary embolus presents with increased left lower extremity swelling along with an inability to ambulate. Patient was hypotensive upon arrival with paramedics. Patient feels extremely weak and complains of pain down his left lower extremity. He has not being able to take his medications for several days now. Related Data Home Medications ?Medication ?Instructions ?Recorded ?Confirmed amlodipine 5 mg tablet 5 mg PO DAILY 11/05/19 02/01/23 glipizide 10 mg tablet 10 mg PO BID 11/05/19 02/01/23 insulin glargine 18 units SUBCUT BID 11/05/19 02/01/23 lisinopril 40 mg PO DAILY 11/05/19 02/01/23 metformin 1,000 mg PO BID 11/05/19 02/01/23 polyethylene glycol 3350 17 g PO BID PRN Constipation 11/05/19 02/01/23 Previous Rx's ?Medication ?Instructions ?Recorded apixaban 5 mg tablet (Eliquis) 5 mg PO BID #60 tabs 11/08/19 docusate sodium 100 mg capsule 200 mg (2 x 100 mg) PO BID PRN 11/08/19 (DOK) Constipation #60 caps prednisone 20 mg tablet 40 mg (2 x 20 mg) PO DAILY #8 tabs 12/28/19 Allergies Allergy/AdvReac Type Severity Reaction Status Date / Time No Known Drug Allergies Allergy Verified 02/02/25 12:21 Review of Systems Review of Systems ROS Unobtainable: All systems reviewed & are unremarkable except as noted in HPI and below Patient History Medical History (Updated 02/02/25 @ 15:03 by Duy Amezcua MD) Hemorrhoids Diabetes type 2, uncontrolled Hypertension Surgical History History of hip surgery History of hip replacement Status post knee surgery Family History Father Congestive heart failure Mother Cancer Brother No significant medical problems Social History household members: friend(s) Smoking Status: Current every day smoker Smoking Status: Current every day smoker tobacco type: cigarettes alcohol intake frequency: a few times a month Exam Narrative Exam Narrative: General: sick appearing , in no acute distress. Able to give a complete and coherent history. not well nourished, looks disheveled HEENT: dry mucous membranes, normal sclera with reactive pupils, Neck: No JVD, supple Respiratory: Lungs are clear to auscultation, no wheezing no rales no rhonchi. Full and symmetrical air movement Cardiac: Regular rate and rhythm no bruits Abdomen: Soft, nontender, no rebound or guarding, no flank pain Skin: Warm and dry, left lower ext swelling/redness/warmth Neurologic: Grossly neurologically intact with no obvious asymmetries or abnormalities, decreased rom Extremities: No trauma, Psych: Cooperative, appropriate insight and affect Initial Vital Signs Initial Vital Signs: Vital Signs Pulse Rate 94 H 02/02/25 12:12 Respiratory Rate 23 02/02/25 12:12 Blood Pressure 89/57 L 02/02/25 12:12 Pulse Oximetry 96 02/02/25 12:12 Oxygen Delivery Method Room Air 02/02/25 12:12 Course Course Course Narrative: Patient had a septic picture and so a sepsis protocol was initiated. Patient is already started on fluids on route via paramedics and was given a total of 2 L of crystalloid solution by the time the hospitalist was consulted. Blood cultures were taken and the patient was initiated on vancomycin and Zosyn. Orders Ordered: ED Orders 02/02/25 12:22 Complete Blood Count AUTO DIFF Stat Comprehensive Metabolic Panel Stat Lactate (Lactic Acid) Stat Lipase Stat PTT Partial Thromboplastin Sandro Stat Procalcitonin Stat Prothrombin Time INR Stat 02/02/25 12:28 XR chest 1V Stat EKG-12 Lead Stat RT Consult Eval and Treat NOW 02/02/25 12:40 Blood Culture Stat 02/02/25 12:45 periph venous low extrem bi Stat 02/02/25 12:48 CT abdomen pelvis w con Stat CT angio chest PE protocol Stat Sodium Chloride (Normal Saline 0.9%) 2,190 mls @ 730 mls/hr 30 ml/kg infuse over 3 hr (2190 ml) IV NOW ONE Stop: 02/02/25 15:29 Last Admin: 02/02/25 12:15 Dose: 730 mls/hr Documented By: RB Piperacillin Sod/Tazobactam (Sod 3.375 gm/ Sodium Chloride) 100 mls @ 25 mls/hr IV Q6HR KAREN Vancomycin HCl/Dextrose (Vancomycin) 2,000 mg in 400 mls @ 200 mls/hr IV NOW ONE Stop: 02/02/25 14:38 Last Admin: 02/02/25 12:47 Dose: 200 mls/hr Documented By: RB Ondansetron HCl (Ondansetron 4 Mg/2 Ml Inj) 4 mg IV NOW PRN PRN Reason: Nausea And Vomiting Ondansetron HCl (Ondansetron 4 Mg Odt) 4 mg PO NOW PRN PRN Reason: Nausea And Vomiting Vancomycin HCl (Vancomycin Per Pharmacy) 1 request MISC NOW PRN PRN Reason: sepsis Last Admin: 02/02/25 13:41 Dose: 1 request Documented By: DKFabiana Discontinued Medications Sodium Chloride (Normal Saline 0.9%) 1,000 mls @ 1,000 mls/hr IV BOLUS ONE Stop: 02/02/25 13:26 Last Admin: 02/02/25 12:32 Dose: Not Given Documented By: RB Piperacillin Sod/Tazobactam (Sod 4.5 gm/ Sodium Chloride) 100 mls @ 200 mls/hr IV STAT ONE Stop: 02/02/25 12:42 Last Admin: 02/02/25 13:36 Dose: 200 mls/hr Documented By: JODY Reevaluation(s) Reevaluation #1: Upon re-evaluation, patient's blood pressure is improving and the patient's symptoms have improved slightly. Reevaluation #2: Patient's CTA of the chest was negative for pulmonary embolus. Patient's CT abdomen and pelvis showed an epiploic appendagitis. Nothing acute. Consultations Consultation #1: hospitalist Dr. Hicks was consulted and agreed to admit the patient for sepsis. Vital Signs Vital signs: Vital Signs - 8 hr 02/02/25 12:12 02/02/25 12:15 02/02/25 12:21 Temperature 99.4 F Pulse Rate 94 H 95 H 104 H Respiratory Rate 23 23 22 Blood Pressure 89/57 L 103/67 89/57 L Pulse Oximetry 96 96 98 Oxygen Delivery Method Room Air Room Air Room Air 02/02/25 12:40 02/02/25 12:46 02/02/25 13:19 Temperature Pulse Rate 93 H 80 89 Respiratory Rate 25 H 22 Blood Pressure 102/59 L 102/63 Pulse Oximetry 96 96 96 Oxygen Delivery Method Room Air Room Air 02/02/25 13:20 02/02/25 13:20 Temperature Pulse Rate 89 Respiratory Rate 22 Blood Pressure 124/68 Pulse Oximetry 96 Oxygen Delivery Method MDM - Skin/Abscess/Foreign Bdy Differential Diagnosis Differential diagnosis: Likely cellulitis and other (sepsis, septic shock ) Medical Records Medical records narrative: Medical records reviewed. Lab Data 02/02/25 12:22 02/02/25 12:22 Labs: Lab Results 02/02/25 Range/Units 12:22 WBC 15.6 H (4.5-11.0) X10^3/uL RBC 4.46 L (4.5-5.9) X10^6/uL Hgb 13.9 (13.5-17.5) g/dL Hct 40.0 L (41-53) % MCV 89.8 (80-100) fL MCH 31.2 (26-34) PG MCHC 34.7 (30-36) % RDW 13.3 (11.6-14.8) % Plt Count 203 (150-400) X10^3/uL Neut % (Auto) 86.0 H (50-75) % Lymph % (Auto) 7.2 L (25-40) % [place] % (Auto) 6.7 (3-14) % Eos % (Auto) 0.0 L (2-4) % Baso % (Auto) 0.1 (0-2) % Neut # (Auto) 36189 H (4639-4609) /uL Lymph # (Auto) 1100 (7966-4063) /uL [place] # (Auto) 1000 H (0-900) /uL Eos # (Auto) 0 (0-450) /uL Baso # (Auto) 0 (0-100) /uL PT 15.1 H (9.4-12.5) SECONDS INR 1.3 (0.9-1.3) APTT 29 (25.1-36.5) SECONDS Sodium 128 L (137-145) mmol/L Potassium 4.1 (3.4-5.1) mmol/L Chloride 98 (98-107) mmol/L Carbon Dioxide 20 L (22-32) mmol/L BUN 24 H (9-20) mg/dL Creatinine 1.21 (0.66-1.25) mg/dL Estimated GFR > 60 (>60) mL/min BUN/Creatinine Ratio 19.8 (6-22) Glucose 118 H (70-99) mg/dL Lactate 1.9 (0.7-2.1) mmol/L Calcium 7.9 L (8.4-10.2) mg/dL Total Bilirubin 1.2 (0.2-1.3) mg/dL AST 41 (17-59) IU/L ALT 27 (<50) IU/L Alkaline Phosphatase 61 (38-126) U/L Total Protein 6.7 (6.3-8.2) g/dL Albumin 3.7 (3.5-5.0) g/dL Globulin 3.0 (1.7-4.1) g/dL Albumin/Globulin Ratio 1.2 (1.0-2.8) Lipase 75 (23-300) U/L Procalcitonin 1.98 H (<0.5) ng/mL ECG Data Interpretation: EKG showed a left axis deviation, more of a left anterior fascicular block. Sinus rhythm with frequent PVCs., no MI interval changes or STT wave changes. Previous EKG showed a similar picture. MDM Narrative Medical decision making narrative: 65-year-old male presenting with a sepsis picture. Patient put on sepsis protocol and started on blood culture, crystalloid solution, antibiotics including vancomycin and Zosyn.. The patient will be admitted into the hospital as an inpatient. Discharge Plan Departure Patient Disposition: Admitted As Inpatient Clinical Impression: Sepsis Qualifiers: Sepsis type: sepsis due to unspecified organism Sepsis acute organ dysfunction status: without acute organ dysfunction Qualified Code(s): A41.9 - Sepsis, unspecified organism
--- NOTE | 2025-02-02 14:15 | PM.HP.1 ---
History of Present Illness History of Present Illness Date Patient Seen: 02/02/25 Time Patient Seen: 14:16 Chief complaint: N/V/D for few days,hypotensive Narrative: This is a 65-year-old male with diabetes mellitus type 2, hypertension and methamphetamine use who presents with nausea, vomiting, diarrhea, left lower extremity pain and redness. He is also having a dull aching on the left side of his abdomen and numbness in all the fingers of the right hand. He has been confined to bed for 3 days with the weakness and pain. He has also been feeling like he is having fevers and chills. Initial evaluation documents leukocytosis, elevated procalcitonin, cellulitis of the left lower extremity and hyponatremia. The right hand numbness pre dates these acute symptoms, going back about 3 months. [facility] Medical History (Updated 02/02/25 @ 16:22 by Cristo Hicks MD) Methamphetamine use Hemorrhoids Diabetes type 2, uncontrolled Hypertension Surgical History History of hip surgery History of hip replacement Status post knee surgery Family History Father Congestive heart failure Mother Cancer Brother No significant medical problems Social History household members: friend(s) Smoking Status: Current every day smoker Meds Home Medications and Allergies Home Medications ?Medication ?Instructions ?Recorded ?Confirmed ?Type amlodipine 5 mg tablet 5 mg PO DAILY 11/05/19 02/01/23 History glipizide 10 mg tablet 10 mg PO BID 11/05/19 02/01/23 History insulin glargine 18 units SUBCUT BID 11/05/19 02/01/23 History lisinopril 40 mg PO DAILY 11/05/19 02/01/23 History metformin 1,000 mg PO BID 11/05/19 02/01/23 History polyethylene glycol 3350 17 g PO BID PRN Constipation 11/05/19 02/01/23 History apixaban 5 mg tablet (Eliquis) 5 mg PO BID #60 tabs 11/08/19 02/01/23 Rx docusate sodium 100 mg capsule 200 mg (2 x 100 mg) PO BID PRN 11/08/19 02/01/23 Rx (DOK) Constipation #60 caps prednisone 20 mg tablet 40 mg (2 x 20 mg) PO DAILY #8 tabs 12/28/19 02/01/23 Rx Allergies Allergy/AdvReac Type Severity Reaction Status Date / Time No Known Drug Allergies Allergy Verified 02/02/25 12:21 Review of Systems Review of Systems Narrative: Positive for fevers, chills, nausea, vomiting, diarrhea, left-sided abdominal pain, left leg pain, right hand numbness. Negative for chest pain, coughing, dysuria, sore throat, headaches, new allergies. Exam Vital Signs (past 8 hours): - 02/02/25 12:12 02/02/25 12:15 02/02/25 12:21 Temperature 99.4 F Pulse Rate 94 H 95 H 104 H Respiratory Rate 23 23 22 Blood Pressure 89/57 L 103/67 89/57 L Pulse Oximetry 96 96 98 Oxygen Delivery Method Room Air Room Air Room Air 02/02/25 12:40 02/02/25 12:46 02/02/25 13:19 Temperature Pulse Rate 93 H 80 89 Respiratory Rate 25 H 22 Blood Pressure 102/59 L 102/63 Pulse Oximetry 96 96 96 Oxygen Delivery Method Room Air Room Air 02/02/25 13:20 02/02/25 13:20 02/02/25 13:30 Temperature Pulse Rate 89 89 Respiratory Rate 22 17 Blood Pressure 124/68 Pulse Oximetry 96 97 Oxygen Delivery Method 02/02/25 13:31 02/02/25 13:31 02/02/25 13:45 Temperature Pulse Rate 89 91 H Respiratory Rate 18 21 Blood Pressure 127/64 Pulse Oximetry 98 97 Oxygen Delivery Method 02/02/25 14:00 02/02/25 14:01 Temperature Pulse Rate 93 H Respiratory Rate 18 Blood Pressure 115/62 Pulse Oximetry 95 Oxygen Delivery Method Oxygen Delivery Method Room Air Narrative Exam Narrative: Alert and oriented x3. Moderate distress from left leg pain and right hand numbness. Pupils are equally round and reactive to light and accommodation. Extraocular muscles are intact. Sclerae are pink and nonicteric. No lymph nodes are felt head, neck, supraclavicular area. There is no thyromegaly. JVD is less than 6 cm. No carotid bruits are heard. Heart is irregularly irregular without murmur. Sinus tach with frequent PACs and PVCs on telemetry. Lungs are clear to auscultation bilaterally Abdomen is mildly tender in the left lower quadrant, not tender elsewhere. Bowel sounds are active. No masses are felt. Skin has no rash or jaundice. The left leg [id number] is slightly pink. Neurologic exam sensation is intact in all extremities but the patient describes the left hand fingers 1-5 all feeling numb despite being able to feel touch. Motor function is 5/5 throughout. Cranial nerves 2-12 test intact. There is no tremor. DTRs are symmetric. Objective Labs 02/02/25 12:22 02/02/25 12:22 Labs: Laboratory Results - last 24 hr 02/02/25 12:22 WBC 15.6 H RBC 4.46 L Hgb 13.9 Hct 40.0 L MCV 89.8 MCH 31.2 MCHC 34.7 RDW 13.3 Plt Count 203 Neut % (Auto) 86.0 H Lymph % (Auto) 7.2 L [place] % (Auto) 6.7 Eos % (Auto) 0.0 L Baso % (Auto) 0.1 Neut # (Auto) 88899 H Lymph # (Auto) 1100 [place] # (Auto) 1000 H Eos # (Auto) 0 Baso # (Auto) 0 PT 15.1 H INR 1.3 APTT 29 Sodium 128 L Potassium 4.1 Chloride 98 Carbon Dioxide 20 L BUN 24 H Creatinine 1.21 Estimated GFR > 60 BUN/Creatinine Ratio 19.8 Glucose 118 H Lactate 1.9 Calcium 7.9 L Total Bilirubin 1.2 AST 41 ALT 27 Alkaline Phosphatase 61 Total Protein 6.7 Albumin 3.7 Globulin 3.0 Albumin/Globulin Ratio 1.2 Lipase 75 Procalcitonin 1.98 H Assessment & Plan Assessment & Plan narrative: This is a 65-year-old male with diabetes mellitus type 2, hypertension and methamphetamine use who presents with nausea, vomiting, diarrhea, left lower extremity pain and redness. He is also having a dull aching on the left side of his abdomen and numbness in all the fingers of the right hand. He has been confined to bed for 3 days with the weakness and pain. He has also been feeling like he is having fevers and chills. Left lower extremity cellulitis, present on admission. Active. -nausea, vomiting, diarrhea and abdominal pain may or may not be related. -white blood count 15.6, procalcitonin 1.98. -IV ceftriaxone and vancomycin. -no DVT on ultrasound. Sigmoid Epiploic Appendagitis, present on admission. Active. -CT abdomen/pelvis reviewed. -surgery is aware of this admission and will consult if symptoms do not improve with conservative treatment. -likely related to the gastroenteritis symptoms of left lower quadrant tenderness/pain, nausea, vomiting, diarrhea. Hyponatremia, present on admission. Active. -sodium 128, likely related to poor GI intake due to vomiting and diarrhea. -IV NS and follow electrolytes. Diabetes mellitus type 2, present on admission. Chronic. -follow blood sugars, continue Lantus and add lispro insulin if needed. Right hand numbness, present on admission. Chronic. -no prior workup -symptoms suspicious for carpal tunnel syndrome, defer to outpatient PCP follow-up. Hypertension, present on admission. Chronic. -resume lisinopril and amlodipine when indicated. Methamphetamine and marijuana use, present on admission. Chronic. Lovenox for DVT prevention Backup decision maker is his fiance. Time-Based Coding :: [TOTAL MINUTES] spent with patient and on the chart (including review of chart, obtaining history, exam, reviewing outside data, placing orders, documenting exam and treatment plan, and counseling patient) on [DATE].
[2025-02-02] MEDS: SODIUM CHLORIDE 0.9% 1,000 ML 100 ML IV ×2 (15:26→23:54)
[2025-02-02] MEDS: cefTRIAXone 2,000 MG in SODIUM CHLORIDE 0.9% 100 ML 200 MG IV (15:29)
[2025-02-02] MEDS: ZOLPIDEM 5 MG TABLET PO (21:06)
[2025-02-02] MEDS: VANCOMYCIN 1,000 MG in SODIUM CHLORIDE 0.9% 250 ML 250 MG IV (23:50)
[2025-02-03 04:00] VITALS: BP 119/68; PULSE 94; RESP 18; TEMP 36; O2SAT 97
[2025-02-03 06:12] LABS: Add Manual Diff / Slide Review NO; Hematocrit 34.6 % (41-53); Hemoglobin 12.2 g/dL (13.5-17.5); Lymphocytes Absolute Auto 1100 /uL (1100-4500); Mean Corpuscular HGB Conc 35.2 % (30-36); Mean Corpuscular Hemoglobin 31.3 PG (26-34); Mean Corpuscular Volume 88.8 fL (80-100); Platelet Count 187 X10^3/uL (150-400)
[2025-02-03 06:22] LABS: Blood Urea Nitrogen 21 mg/dL (9-20); Calcium 7.5 mg/dL (8.4-10.2); Carbon Dioxide 22 mmol/L (22-32); Chloride 104 mmol/L (98-107); Estimated Glomerular Filt Rate > 60 mL/min (>60); Glucose 97 mg/dL (70-99); HEMOLYSIS < 15 (0-50); Potassium 3.8 mmol/L (3.4-5.1); Sodium 132 mmol/L (137-145)
--- NOTE | 2025-02-03 07:43 | P.PN_ITS ---
Subjective Subjective Date Patient Seen: 02/03/25 Interval history: He is feeling somewhat better today. His vitals look good. His CBC is normal. The sodium is 132 with potassium of 3.8 and a creatinine of 0.77 Exam Vital Signs (past 8 hours): - 02/03/25 04:00 Temperature 96.8 F L Pulse Rate 94 H Respiratory Rate 18 Blood Pressure 119/68 Pulse Oximetry 97 Oxygen Flow Rate 0 Oxygen Delivery Method Room Air Oxygen Flow Rate 0 Narrative Exam Narrative: Heart is regular rate and rhythm without murmur. Lungs are clear to auscultation bilaterally. Extremities have bilateral 1+ edema and the left leg from the knee to the foot is slightly red. Objective Labs 02/03/25 05:10 02/03/25 05:10 Labs: Laboratory Results - last 24 hr 02/02/25 02/02/25 02/02/25 12:22 16:58 21:04 WBC 15.6 H RBC 4.46 L Hgb 13.9 Hct 40.0 L MCV 89.8 MCH 31.2 MCHC 34.7 RDW 13.3 Plt Count 203 Neut % (Auto) 86.0 H Lymph % (Auto) 7.2 L [place] % (Auto) 6.7 Eos % (Auto) 0.0 L Baso % (Auto) 0.1 Neut # (Auto) 91906 H Lymph # (Auto) 1100 [place] # (Auto) 1000 H Eos # (Auto) 0 Baso # (Auto) 0 PT 15.1 H INR 1.3 APTT 29 Sodium 128 L Potassium 4.1 Chloride 98 Carbon Dioxide 20 L BUN 24 H Creatinine 1.21 Estimated GFR > 60 BUN/Creatinine Ratio 19.8 Glucose 118 H POC Whole Bld Glucose 92 110 H Lactate 1.9 Calcium 7.9 L Total Bilirubin 1.2 AST 41 ALT 27 Alkaline Phosphatase 61 Total Protein 6.7 Albumin 3.7 Globulin 3.0 Albumin/Globulin Ratio 1.2 Lipase 75 Procalcitonin 1.98 H 02/03/25 02/03/25 05:10 07:35 WBC 10.0 RBC 3.90 L Hgb 12.2 L Hct 34.6 L MCV 88.8 MCH 31.3 MCHC 35.2 RDW 12.9 Plt Count 187 Neut % (Auto) 81.0 H Lymph % (Auto) 10.5 L [place] % (Auto) 7.7 Eos % (Auto) 0.5 L Baso % (Auto) 0.3 Neut # (Auto) 8100 H Lymph # (Auto) 1100 [place] # (Auto) 800 Eos # (Auto) 100 Baso # (Auto) 0 PT INR APTT Sodium 132 L Potassium 3.8 Chloride 104 Carbon Dioxide 22 BUN 21 H Creatinine 0.77 Estimated GFR > 60 BUN/Creatinine Ratio 27.3 H Glucose 97 POC Whole Bld Glucose 101 H Lactate Calcium 7.5 L Total Bilirubin AST ALT Alkaline Phosphatase Total Protein Albumin Globulin Albumin/Globulin Ratio Lipase Procalcitonin [facility] Medical History (Updated 02/02/25 @ 16:22 by Cristo Hicks MD) Methamphetamine use Hemorrhoids Diabetes type 2, uncontrolled Hypertension Surgical History History of hip surgery History of hip replacement Status post knee surgery Family History Father Congestive heart failure Mother Cancer Brother No significant medical problems Social History household members: friend(s) Smoking Status: Current every day smoker Assessment & Plan Assessment & Plan narrative: This is a 65-year-old male with diabetes mellitus type 2, hypertension and methamphetamine use who presents with nausea, vomiting, diarrhea, left lower extremity pain and redness. He is also having a dull aching on the left side of his abdomen and numbness in all the fingers of the right hand. He has been confined to bed for 3 days with the weakness and pain. He has also been feeling like he is having fevers and chills. Left lower extremity cellulitis, present on admission. Active. -nausea, vomiting, diarrhea and abdominal pain may or may not be related. -white blood count 15.6, procalcitonin 1.98, on admission, WBC down to 10.0 02/03. -IV ceftriaxone and vancomycin. -no DVT on ultrasound. Xray of knees. Sigmoid Epiploic Appendagitis, present on admission. Active. -CT abdomen/pelvis reviewed. -surgery is aware of this admission and will consult if symptoms do not improve with conservative treatment. -likely related to the gastroenteritis symptoms of left lower quadrant tenderness/pain, nausea, vomiting, diarrhea. Hyponatremia, present on admission. Active. -sodium 128, likely related to poor GI intake due to vomiting and diarrhea. -IV NS and follow electrolytes. 132 on 02/03. Diabetes mellitus type 2, present on admission. Chronic. -follow blood sugars, continue Lantus and Lispro. Right hand numbness, present on admission. Chronic. -no prior workup -symptoms suspicious for carpal tunnel syndrome, defer to outpatient PCP follow- up. Hypertension, present on admission. Chronic. -resume lisinopril 02/03 and holding Amlodipine. Methamphetamine and marijuana use, present on admission. Chronic. Lovenox for DVT prevention Backup decision maker is his fiance. Time-Based Coding :: [TOTAL MINUTES] spent with patient and on the chart (including review of chart, obtaining history, exam, reviewing outside data, placing orders, documenting exam and treatment plan, and counseling patient) on [DATE].
[2025-02-03 08:00] VITALS: BP 128/68; PULSE 82; RESP 18; TEMP 36.4; O2SAT 95
[2025-02-03 10:14] LABS: Hemoglobin A1C% w Est Avg Glu 5.7 % (4.0-6.0)
--- NOTE | 2025-02-03 11:32 | PC.NURSE ---
Addendum entered by Estephania Parnell R.N. 02/03/25 15:48: Patient teary eyed today. He has not asked for pain medication and has been sleeping. He is warm but does not have a fever, his temperature was 97.2 Original Note: Patient is sleeping, his l.green to above foot is red and warm. Slightly swollen. He denies pain, eating well at meals. Tolerating ivf! Voices no needs at this time.
[2025-02-03 12:00] VITALS: BP 118/57; PULSE 83; RESP 17; TEMP 35.9; O2SAT 95
[2025-02-03] MEDS: SODIUM CHLORIDE 0.9% 1,000 ML 100 ML IV ×2 (12:00→22:32)
[2025-02-03] MEDS: ENOXAPARIN 40 MG/0.4 ML SYRINGE SUBCUT (12:08)
[2025-02-03] MEDS: VANCOMYCIN 1,000 MG in SODIUM CHLORIDE 0.9% 250 ML 250 MG IV (12:09)
--- NOTE | 2025-02-03 14:15 | DI.RAD.S_ITS ---
PROCEDURE: XR KNEE LT 3V INDICATIONS: Knee Pain TECHNIQUE: 3 views of the knee were acquired. COMPARISON: None. FINDINGS: Bones: No fractures or dislocations. No suspicious bony lesions. Plain screw fixation of the femur is partially imaged. Soft tissues: No definite joint effusion although evaluation is limited by positioning. No suspicious soft tissue calcifications. Arterial calcifications are present. IMPRESSION: No acute bony abnormality or significant effusion. Peripheral arterial disease. Dictated by: Cris Batres M.D. on 02/03/2025 at 13:51 Approved by: Cris Batres M.D. on 02/03/2025 at 14:01
--- NOTE | 2025-02-03 14:15 | DI.RAD.S_ITS ---
PROCEDURE: XR KNEE RT 3V INDICATIONS: Knee Pain TECHNIQUE: 3 views of the knee were acquired. COMPARISON: None. FINDINGS: Bones: No fractures or dislocations. No suspicious bony lesions. Small medial compartment osteophytes and mild joint space narrowing are shown. Soft tissues: No joint effusion. No suspicious soft tissue calcifications. Arterial calcifications are present. IMPRESSION: Mild medial compartment osteoarthritis. Dictated by: Cris Batres M.D. on 02/03/2025 at 14:01 Approved by: Cris Batres M.D. on 02/03/2025 at 14:03
[2025-02-03] MEDS: cefTRIAXone 2,000 MG in SODIUM CHLORIDE 0.9% 100 ML 200 MG IV (14:27)
--- NOTE | 2025-02-03 15:57 | CM.DANOTE ---
DCP Assessment note pt is a 65yo M admitted with lower leg cellultis PCP Tamiko Amado [facility] and self pay SURVEILLANCE SPECIALIST reviewed EMR per chart, pt lives with friends in [place]. per provider, pt here another few days on IV abx and dc on PO abx. per nursing staff, could benefit from PT eval. was in bed for a few days unable to get up prior to admission. PT eval Tuesday? SURVEILLANCE SPECIALIST attempted to meet with pt in room. sleeping. allowed to rest. P: CARMELO another few days home with friends in [place]. PT eval for DCP recs would be appreciated if pt continues to not be able to ambulate Tuesday. unsure PLOF. Will continue to follow closely for DCP coordination JEREMIAH Odell Discharge Planning/Care Management Advanced directive, confirm from FAMILY Start: 02/02/25 17:03 Freq: Q24H Status: Active Protocol: Document 02/02/25 17:03 YAD (Rec: 02/02/25 17:55 YAD [id number]) Advance Directive, confirm on record Time 17:55 Person contacted Pt Copy received No CM Discharge Assessment Start: 02/02/25 16:50 Freq: Status: Active Protocol: Document 02/03/25 15:55 SL (Rec: 02/03/25 15:56 SL Desktop) Discharge Planning Assessment Assigned Discharge JEREMIAH Segal Land Law Examiner DPOA/Assigned brother Vidal Designee Name Contact Information [phone] Advance Directives? No Advance Directives No on File History Provided By Patient Prior Living House Arrangements Household Members friend(s) Independent with ADL Yes 's Is patient alert and Yes oriented? Comment Unknown at this time Transportation Unkown at this time Arrangement Review Status In Process Please Provide Date 02/03/25 Initial DC Assessment Was Performed Next Review Type Continued Stay Review
[2025-02-03 17:00] VITALS: BP 136/76; PULSE 89; RESP 18; TEMP 36.4; O2SAT 95
[2025-02-03] MEDS: INSULIN LISPRO 100 UNIT/ML 3ML VIAL SUBCUT (17:36)
[2025-02-03 19:00] VITALS: BP 126/69; PULSE 97; RESP 22; TEMP 36.6; O2SAT 96
[2025-02-03] MEDS: INSULIN GLARGINE 100 UNIT/ML 3ML PEN 18 UNIT SUBCUT (21:30)
[2025-02-03] MEDS: SODIUM CHLORIDE 0.9% FLUSH 10 ML IV (21:30)
[2025-02-03] MEDS: ZOLPIDEM 5 MG TABLET PO (22:52)
[2025-02-03 23:00] VITALS: BP 135/77; PULSE 87; RESP 20; TEMP 36.6; O2SAT 97
[2025-02-04] MEDS: VANCOMYCIN 1,000 MG in SODIUM CHLORIDE 0.9% 250 ML 250 MG IV (00:34)
[2025-02-04 03:00] VITALS: BP 131/77; PULSE 87; RESP 18; TEMP 36.4; O2SAT 99
--- NOTE | 2025-02-04 07:23 | PC.NURSE ---
Dr. Malhotra notified in regards pt having a isbell catheter for retention and to see if we can discontinue isbell catherter and if pt needs to be started on flomax.
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
[2025-02-04 08:00] VITALS: BP 138/74; PULSE 94; RESP 20; TEMP 36.2; O2SAT 95
[2025-02-04] MEDS: ENOXAPARIN 40 MG/0.4 ML SYRINGE SUBCUT (08:13)
[2025-02-04] MEDS: INSULIN GLARGINE 100 UNIT/ML 3ML PEN 18 UNIT SUBCUT ×2 (08:16→20:47)
[2025-02-04] MEDS: SODIUM CHLORIDE 0.9% 1,000 ML 100 ML IV (08:19)
--- NOTE | 2025-02-04 10:39 | DIET.CONS ---
Dietary Consultation Note Admission Date: 02/02/2025 15:17 Assessment: 65 y M admitted for cellulitis. Dietitian consulted for weight loss. Met with pt at bedside who reports decreased appetite for 1 month with around 50% or less of his 3 usual meals (spaghetti and meatballs, pork and mashed potatoes) and loss of appetite the last 2-3 days before admission, with no PO intakes. Appetite has since returned and doing 100% of meals. Doesn't have all of teeth. Dentures no longer fit and too expensive to get some again. Has been tolerating food options without problems per pt. NFPE performed with no significant results. PMH of DM with A1c 5.7%, on glargine, glipizide, metformin. Gets meds from [place]. Has BG meter and checks FBG daily, around 110. Has had DM educ before, dx with DM >10 yrs ago. Ht: 177.8 cm Wt: 95 kg BMI: 29.9 UBW: 230 lb (104.5 kg) per pt (-9% weight loss in 1 month, severe) Last BM: 02/02/25 (02/02/25 16:50) MNA: 11 Maury Score: 19 Diet: 02/02/25 Dinner Carbohydrate Consistent Diet Diet Modifications: Carbohydrate level: Medium (3 CHO) Reflex DM orders: No Nutrition Percent Meal Consumed 100% 02/03/25 18:00 Percent Meal Consumed 100% 02/03/25 09:20 Percent Meal Consumed 100% 02/02/25 17:33 Labs: RBC 3.90 X10^6/uL (4.5-5.9) L 02/03/25 05:10 Hgb 12.2 g/dL (13.5-17.5) L 02/03/25 05:10 Hct 34.6 % (41-53) L 02/03/25 05:10 Creatinine 0.77 mg/dL (0.66-1.25) 02/03/25 05:10 Hemoglobin A1c 5.7 % (4.0-6.0) 02/03/25 05:10 Lactate 1.9 mmol/L (0.7-2.1) 02/02/25 12:22 Nutrition Diagnosis: Moderate acute protein calorie malnutrition r/t decreased appetite aeb 50% of estimated energy needs for 1 month per diet recall (moderate) and 9% weight loss in 1 month (severe) Interventions: Pt with good appetite now, DFM reviewed, meeting energy needs Reviewed carb consistent diet using portion sizing and pairing of macronutrients Discussed soft foods as needed, i.e. cut meats and gravy, coordinated with unit host EER: 1900 kcals (20 kcals per kg per BMI 29) 80 g protein (1g/kg of adjusted IBW per PCM) Monitoring/Evaluations: po intakes Electronically Signed by: Jacquelyn Horn 02/04/25 10:39 Clinical Dietitian [address] [address]
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
[2025-02-04 12:00] VITALS: BP 125/66; PULSE 78; RESP 17; TEMP 36; O2SAT 96
[2025-02-04] MEDS: VANCOMYCIN TROUGH 1 REQUEST MISC (12:16)
[2025-02-04] MEDS: VANCOMYCIN 1,250 MG/250 ML PIGGYBACK 250 MG IV ×2 (12:39→20:46)
--- NOTE | 2025-02-04 14:50 | CM.DPNOTE ---
DCP note CREEL HAND reviewed EMR per provider, anticipate another day at least for IV abx. Per PT rec home with assistance CREEL HAND met with pt in room. pt confirms living at home with SO in [place]. no DME at baseline. reports feeling much better today. is indep/drives at baseline. has family that could transport him home at dc. frustrated with this CREEL HAND bc she interuped his movie ending. denies any DCP/CM needs at this time. P: home with SO support in a day or two of IV abx switch to PO at dc. no identified barriers to safe dc home at this time. CM team will continue to follow as needed for DCP coordination JEREMIAH Odell
[2025-02-04] MEDS: cefTRIAXone 2,000 MG in SODIUM CHLORIDE 0.9% 100 ML 200 MG IV (14:57)
[2025-02-04 16:00] VITALS: BP 130/65; PULSE 87; RESP 12; TEMP 36.6; O2SAT 97
[2025-02-04 16:15] LABS: MRSA (Nasal) PCR DETECTED (Not Detect)
[2025-02-04] MEDS: INSULIN LISPRO 100 UNIT/ML 3ML VIAL SUBCUT (16:58)
[2025-02-04 19:00] VITALS: BP 153/75; PULSE 90; RESP 22; TEMP 36.5; O2SAT 96
[2025-02-04] MEDS: ZOLPIDEM 5 MG TABLET PO (22:21)
[2025-02-05] VITALS (10 sets, daily range): BP systolic 111–167; BP diastolic 54–89; PULSE 63–102; RESP 12–20; TEMP 36.2–38.2; O2SAT 90–101
--- NOTE | 2025-02-05 02:16 | PC.NURSE ---
Dr. Bella notified in regards pt being more tachycardic on his tele tonight with multiple pvc's, pt having also wheezing with any activity and at times while laying in bed, new orders taken for stat labs, BMP, BNP and MAG LEVEL.
[2025-02-05 02:48] LABS: Blood Urea Nitrogen 9 mg/dL (9-20); Calcium 8.1 mg/dL (8.4-10.2); Carbon Dioxide 24 mmol/L (22-32); Chloride 103 mmol/L (98-107); Estimated Glomerular Filt Rate > 60 mL/min (>60); Glucose 117 mg/dL (70-99); HEMOLYSIS < 15 (0-50); Magnesium 1.4 mg/dL (1.6-2.3); Potassium 3.8 mmol/L (3.4-5.1); Sodium 131 mmol/L (137-145)
[2025-02-05 02:57] LABS: NT-proBNP (BNP-Adult 18+) 2870 pg/mL (<125)
[2025-02-05 04:09] LABS: Add Manual Diff / Slide Review NO; Hematocrit 32.1 % (41-53); Hemoglobin 11.5 g/dL (13.5-17.5); Lymphocytes Absolute Auto 1000 /uL (1100-4500); Mean Corpuscular HGB Conc 35.8 % (30-36); Mean Corpuscular Hemoglobin 31.5 PG (26-34); Mean Corpuscular Volume 88.1 fL (80-100); Platelet Count 207 X10^3/uL (150-400)
[2025-02-05] MEDS: ACETAMINOPHEN 325 MG TABLET 975 MG PO (04:15)
[2025-02-05] MEDS: POTASSIUM CHLORIDE 20 MEQ TAB 40 MEQ PO (04:16)
[2025-02-05] MEDS: FUROSEMIDE 20 MG/2 ML VIAL IV (04:16)
[2025-02-05] MEDS: MAGNESIUM SULFATE 2 GM/50 ML PIGGYBACK IV (04:16)
--- NOTE | 2025-02-05 04:59 | PC.NURSE ---
Pt has been wheezing tonight, desating to the low 90's and high 80's, febrile 100.8 orally, on tele ST low 100's. Dr. Bella notified, orders taken for lasix ivp, tyelnol & potassium po and iv magnesium.
--- NOTE | 2025-02-05 05:12 | PC.WOUNDPHOT ---
left leg cellulitis
[2025-02-05] MEDS: VANCOMYCIN 1,250 MG/250 ML PIGGYBACK 250 MG IV (06:40)
--- NOTE | 2025-02-05 07:30 | PC.NURSE ---
Dr. Young updated on patient's status this am, He's aware that pt BNP is elevated and that he was febrile during the night.
--- NOTE | 2025-02-05 07:51 | DI.ECHO.S_ITS ---
[facility] +---------+ [facility] : : [address] : : [place] : : [id number] : : Phone: [phone] Echocardiogram Report + + :Name: MALI WOMACK Study Date: 02/05/2025 Height: 70 in : :Hospital ReadingLocation: Weight: 209 lb : : Gender: Male BSA: 2.1 m2 : :: 1960 Age: 65 yrs BP: 147/67 mmHg: :Reason For Study: EDEMA : :Ordering Physician: CASSI : :VU Performed By: Leah Mansfield : :Referring: VU YE L : + + Interpretation Summary Left ventricular ejection fraction is estimated to be 45 +/- 5%. Inferior hypokinesis. Consider limited study with Definity to better evaluate WMA The right ventricle grossly appears normal in size with probable normal systolic function. There is mild tricuspid regurgitation. The right ventricular systolic pressure is estimated to be at least 65 mmHg based on an estimated right atrial pressure of 8 mm Hg. There is mild to moderate pulmonic regurgitation. There is mild mitral regurgitation. There is no hemodynamically significant valvular aortic stenosis. Procedure: A two-dimensional transthoracic echocardiogram with color flow and Doppler was performed. Comparison is made with the echocardiogram of 11/05/2019. There is no prior echocardiogram noted for this patient. Left Ventricle: The left ventricle is normal in size and wall thickness. Left ventricular ejection fraction is estimated to be 45 +/- 5%. Inferior hypokinesis. Consider limited study with Definity to better evaluate WMA. Right Ventricle: The right ventricle grossly appears normal in size with probable normal systolic function. Atria: The left atrium is mildly dilated. Right atrial size is normal. There is no Doppler evidence for an interatrial shunt. Mitral Valve: The mitral valve leaflets appear mildly thickened. There is mild mitral regurgitation. Aortic Valve: The aortic valve is not well visualized. There is mild aortic valve sclerosis. The peak aortic velocity is 1.9 m/sec. The aortic valve mean gradient is 8 mmHg. The calculated aortic valve area is 2.0 cm2. There is no hemodynamically significant valvular aortic stenosis. There is trace aortic regurgitation. Tricuspid Valve: The tricuspid valve leaflets are thin and pliable. There is mild tricuspid regurgitation. The right ventricular systolic pressure is estimated to be at least 65 mmHg based on an estimated right atrial pressure of 8 mm Hg. Pulmonic Valve: The pulmonic valve leaflets are thin and pliable; valve motion is normal. There is mild to moderate pulmonic regurgitation. Great Vessels: The aortic root is normal size. The dimensions of the ascending aorta are normal. The IVC is dilated (diameter is greater than 2.1 cm) yet it collapses greater than 50% with a sniff. This suggests a right atrial pressure of 8 mm Hg. Pericardium/ Pleura There is no pericardial effusion. There is no pleural effusion. MMode/2D Measurements & Calculations LVIDd: 5.4 cm LVOT diam: 2.3 cm LVIDs: 4.5 cm Ao root diam: 3.6 cm FS: 15.4 % asc Aorta Diam: 3.1 cm EPSS: 1.4 cm IVSd: 0.89 cm LVPWd: 0.87 cm LV chowdhury. diameter/BSA (cm/m^2): 2.5 LV sys. diameter/BSA (cm/m^2): 2.1 LA A2 area: 26.1 cm2 RA long axis: 5.9 cm LA A4 area: 24.1 cm2 RA area: 21.8 cm2 LA length (vol): 6.0 cm RA vol: 68.3 ml LA vol: 89.5 ml RA : 32.1 ml/m2 LA vol index: 42.1 ml/m2 IVC diam: 2.4 cm RVD1 (basal): 4.2 cm TAPSE: 2.0 cm Doppler Measurements & Calculations Ao V2 max: 193.1 cm/sec LVOT Max Toribio: 89.3 cm/sec Ao V2 mean: 134.5 cm/sec LV V1 max P.2 mmHg Ao max P.9 mmHg LV V1 VTI: 16.9 cm Ao mean P.1 mmHg TOM(I,D): 2.0 cm2 Ao V2 VTI: 37.4 cm TOM(V,D): 2.0 cm2 sev ratio: 0.45 TOM indexed to BSA (cm^2/m^2): 0.92 MV E max toribio: 92.5 cm/sec TR max toribio: 377.0 cm/sec MV A max toribio: 65.5 cm/sec TR max P.8 mmHg MV E/A: 1.4 PA V2 max: 113.1 cm/sec Med Peak E' Toribio: 7.4 cm/sec PA V2 mean: 76.4 cm/sec E/E' med: 12.4 PA mean P.5 mmHg Lat Peak E' Toribio: 11.5 cm/sec PA pr(Accel): 49.9 mmHg E/E' lat: 8.0 E/e' average: 10.2 MV dec time: 0.15 sec SV(LVOT): 72.9 ml Reading Physician:01:16 PM
--- NOTE | 2025-02-05 07:52 | P.PN_ITS ---
Subjective Subjective Interval history: S: He had a fever last night. He was wheezy per RN and had a dose of Lasix. He was urinating without difficulty and feels his left leg is now improving. He was still quite red and swollen, but a little bit better. Exam Vital Signs (past 8 hours): - 02/05/25 00:00 02/05/25 03:05 02/05/25 04:15 Temperature 99.1 F 100.8 F H 100.8 F H Pulse Rate 102 H Respiratory Rate 20 Blood Pressure 153/73 H Pulse Oximetry 90 L 93 Oxygen Flow Rate 0 02/05/25 04:20 02/05/25 05:30 02/05/25 06:49 Temperature 99 F 98 F Pulse Rate 89 Respiratory Rate 18 Blood Pressure 111/54 L Pulse Oximetry 101 H 93 95 Oxygen Flow Rate 0 Oxygen Delivery Method Room Air Oxygen Flow Rate 0 Narrative Exam Narrative: NAD, alert and oriented. Fluent speech. Lungs are clear, normal rate and effort. Heart is regular, no murmur gallop or rub. Abdomen is soft, non distended. Extremities: Left leg is somewhat red and still swollen and warm. It was a little bit better in appearance than yesterday. He is breathing comfortably, and with regular effort. Objective Labs 02/05/25 02:30 02/05/25 02:30 Labs: Laboratory Results - last 24 hr 02/04/25 02/04/25 02/04/25 07:59 11:30 11:47 WBC RBC Hgb Hct MCV MCH MCHC RDW Plt Count Neut % (Auto) Lymph % (Auto) [place] % (Auto) Eos % (Auto) Baso % (Auto) Neut # (Auto) Lymph # (Auto) [place] # (Auto) Eos # (Auto) Baso # (Auto) Sodium Potassium Chloride Carbon Dioxide BUN Creatinine Estimated GFR BUN/Creatinine Ratio Glucose POC Whole Bld Glucose 127 H 154 H Calcium Magnesium NT-Pro-B Natriuret Pep Nasal Screen MRSA (PCR) Vancomycin Trough 5.5 L 02/04/25 02/04/25 02/04/25 14:50 16:55 20:47 WBC RBC Hgb Hct MCV MCH MCHC RDW Plt Count Neut % (Auto) Lymph % (Auto) [place] % (Auto) Eos % (Auto) Baso % (Auto) Neut # (Auto) Lymph # (Auto) [place] # (Auto) Eos # (Auto) Baso # (Auto) Sodium Potassium Chloride Carbon Dioxide BUN Creatinine Estimated GFR BUN/Creatinine Ratio Glucose POC Whole Bld Glucose 172 H 170 H Calcium Magnesium NT-Pro-B Natriuret Pep Nasal Screen MRSA (PCR) Detected H Vancomycin Trough 02/05/25 02:30 WBC 9.3 RBC 3.65 L Hgb 11.5 L Hct 32.1 L MCV 88.1 MCH 31.5 MCHC 35.8 RDW 13.2 Plt Count 207 Neut % (Auto) 78.8 H Lymph % (Auto) 10.7 L [place] % (Auto) 8.2 Eos % (Auto) 1.7 L Baso % (Auto) 0.6 Neut # (Auto) 7400 H Lymph # (Auto) 1000 L [place] # (Auto) 800 Eos # (Auto) 200 Baso # (Auto) 100 Sodium 131 L Potassium 3.8 Chloride 103 Carbon Dioxide 24 BUN 9 Creatinine 0.57 L Estimated GFR > 60 BUN/Creatinine Ratio 15.8 Glucose 117 H POC Whole Bld Glucose Calcium 8.1 L Magnesium 1.4 L NT-Pro-B Natriuret Pep 2870 H Nasal Screen MRSA (PCR) Vancomycin Trough [facility] Medical History Methamphetamine use Hemorrhoids Diabetes type 2, uncontrolled Hypertension Surgical History History of hip surgery History of hip replacement Status post knee surgery Family History Father Congestive heart failure Mother Cancer Brother No significant medical problems Social History household members: significant other Smoking Status: Current every day smoker Assessment & Plan Assessment & Plan narrative: 1. Left lower extremity cellulitis, present on admission. Active and improving. -nares MRSA positive. -IV ceftriaxone and vancomycin. 2. Sigmoid Epiploic Appendagitis, present on admission. Active. -CT abdomen/pelvis reviewed. -surgery is aware of this admission 3. Hyponatremia, present on admission. Improved.. -sodium 128, likely related to poor GI intake due to vomiting and diarrhea. -IV NS and follow electrolytes. 132 on 02/03. 4. Diabetes mellitus type 2, present on admission. Chronic. -follow blood sugars, continue Lantus and Lispro. 5. Right hand numbness, present on admission. Chronic. -no prior workup -symptoms suspicious for carpal tunnel syndrome, defer to outpatient PCP follow- up. 6. Hypertension, present on admission. Chronic. -resume lisinopril 02/03 and holding Amlodipine. 7. Methamphetamine and marijuana use, present on admission. Chronic. 8. Urine retention. He declines the falling asked that it be removed and also declines Flomax. 9. Dyspnea and wheezing, givem Lasix overnight/ Plan: -we will continue IV antibiotics and leg elevation. -nares MRSA swab. -Lasix IV -ECHO to assess EF. CARMELO: 1-2 days. Time-Based Coding :: [TOTAL MINUTES] spent with patient and on the chart (including review of chart, obtaining history, exam, reviewing outside data, placing orders, documenting exam and treatment plan, and counseling patient) on [DATE].
[2025-02-05] MEDS: INSULIN GLARGINE 100 UNIT/ML 3ML PEN 18 UNIT SUBCUT ×2 (09:49→21:04)
[2025-02-05] MEDS: TAMSULOSIN 0.4 MG CAPSULE PO (09:50)
[2025-02-05] MEDS: ENOXAPARIN 40 MG/0.4 ML SYRINGE SUBCUT (09:50)
--- NOTE | 2025-02-05 11:30 | PC.NURSE ---
Patient voiding in the urinal. He denies pain at this time, up for breakfast and back to bed. He is resting comfortably. He has a cough and sounds congested. He is afebrile.
--- NOTE | 2025-02-05 11:40 | PT.IPTN ---
Current Diagnoses Cellulitis of left lower limb (02/02/25) Physical Therapy Treatment Note M2 PT-IP Current Condition Start: 02/04/25 10:41 Freq: NEEDED Status: Active Protocol: Document 02/04/25 10:25 MB (Rec: 02/04/25 10:50 MB Desktop) Physical Therapy Current Condition Current Condition Evaluation Date 02/04/25 Treatment Diagnosis LLE cellulitis and sepsis M3 PT-IP Subjective Start: 02/04/25 10:41 Freq: NEEDED Status: Active Protocol: Document 02/05/25 11:40 AB (Rec: 02/05/25 13:30 AB [id number]) Subjective Physical Therapy Visit Type Type Treatment Note Visit Start Time 11:40 Visit Stop Time 12:00 Number of ELECTROPLATER Visits 0 Physical Therapy Visit Comments Patient Comments agreed to get up M4 PT-IP Mobility and Gait Start: 02/04/25 10:41 Freq: NEEDED Status: Active Protocol: Document 02/05/25 11:40 AB (Rec: 02/05/25 13:30 AB [id number]) PT-Bed Mobility Assessment Supine to Sit Supine to Sit Independent Sit to Supine Sit to Supine Independent PT-Transfer Assessment Sit to and From Stand Sit to and from Independent Stand Equipment Transfer Assistive None,Axillary Crutches Device Orthotic/Prosthetic No Devices or Brace: Transfers Transfer Destination Chair Transfer Technique ambulated Transfer Ability Level of Assist Independent Comments Mobility Comments pt in bed and agreed to do PT. supine to sit mod I. sit to stand mod I. completed ambulation in room initial SBA and agreed to ambulate in the hallway ~ 150 ft mod I. presents with antalgic gait but without LOB. completed up/down steps B rails SBA. pt ambulated back to his room. agreed to sit up on chair for lunch. positioned pt on the chair. call light and table placed within reach. pt can be independent with mobility in room without AD and to ambulate with nursing staff providing supervision for safety without AD. no further PT interventions needed at this time. pt aware. Gait Assessment Gait Gait Assistance Independent,Standby Assistance Required: Distance (Feet) 150 Able to Maintain Yes Weight Bearing Status During Gait Assistive Devices Assistive Device None Orthotic/Prosthetic No Devices or Brace: Gait Deviations General Gait Pattern Antalgic Factors Limiting Gait Function Factors Limiting Decreased Activity Tolerance Gait Function Stair Climbing Assessment Devices Stair Climbing Left Railing,Right Railing Assistive Devices Technique/Endurance Stair Climbing Ascend and Descend Direction Stair Climbing Step Over Step Technique Number of Steps 3 Climbed Stair Climbing Set # 1 Repetitions (reps) PT-Balance Assessment Sitting Balance and Reactions Static Sitting Normal Balance Ability Dynamic Sitting Normal Balance Ability Standing Balance and Reactions Static Standing Good Balance Ability Dynamic Standing Good Balance Ability Device Used without AD M5 PT-IP Objective Assessments Start: 02/04/25 10:41 Freq: NEEDED Status: Active Protocol: Document 02/04/25 10:25 MB (Rec: 02/04/25 10:50 MB Desktop) Orientation Orientation/Cognition Level of Alertness Alert Orientation Name,Birthday,Month,Year,Place,Situation Language Function No Deficits Noted Ability Safety Awareness Decreased Safety Awareness Memory Description No Deficits Noted Gross Range of Motion Upper Extremity ROM Assessment Within Functional Limits Lower Extremity ROM Assessment Left Impaired Strength Upper Extremity Strength Assessment Within Functional Limits Lower Extremity Strength Assessment Left Impaired Comments Strength Comments Functional strength in LLE but he has discomfort and increased edema Coordination Assessment Assessment Coordination NT Comments Sensation Assessment Sensation Gross Sensation Left LE Impaired Sensation Hyperesthesia Description Muscle Tone Muscle Tone WNL Yes M6 PT-IP Treatment Start: 02/04/25 10:41 Freq: NEEDED Status: Active Protocol: Document 02/05/25 11:40 AB (Rec: 02/05/25 13:30 AB [id number]) Physical Therapy Treatment Education Education Provided Safety M7 PT-IP Assessment and Plan Start: 02/04/25 10:41 Freq: NEEDED Status: Active Protocol: Document 02/05/25 11:40 AB (Rec: 02/05/25 13:30 AB [id number]) PT Summary Assessment and Plan Potential Rehabilitation Good Potential Summary Impairments Balance,Sensation Assessment Summary pt is modified independent with bed mobility, transfers and ambulation without AD short distances; SBA for long distances for safety. pt plans to go home and has his significant other to assist him is needed. No further PT interventions indicated at this time. pt may go home when medically stable. Goals Bed Mobility Goal Independent Transfer Goal Independent Gait Goal Independent Gait Distance 200 Days to Meet Goals 3 Frequency of Treatment Frequency Of Discharge Treatment Treatment Plan Physical Therapy Bed Mobility Training,Transfer Training,Gait Training, Treatment Plan Discharge Planning Recommendations To Nursing Amount of Assist Standby Assistance Needed Discharge Recommendations PT Discharge Home with Assistance Recommendations Transportation Needs Private Vehicle at Discharge - PT assist 1
[2025-02-05] MEDS: INSULIN LISPRO 100 UNIT/ML 3ML VIAL SUBCUT ×2 (12:40→17:30)
[2025-02-05] MEDS: VANCOMYCIN TROUGH 1 REQUEST MISC (12:40)
[2025-02-05] MEDS: cefTRIAXone 2,000 MG in SODIUM CHLORIDE 0.9% 100 ML 200 MG IV (13:48)
[2025-02-05] MEDS: VANCOMYCIN 1,750 MG in SODIUM CHLORIDE 0.9% 500 ML 250 MG IV ×2 (14:36→21:04)
[2025-02-06] VITALS: BP 148/74; PULSE 91; RESP 20; TEMP 36.4; O2SAT 91
[2025-02-06 04:00] VITALS: BP 157/84; PULSE 94; RESP 22; TEMP 37; O2SAT 93
[2025-02-06] MEDS: VANCOMYCIN 1,750 MG in SODIUM CHLORIDE 0.9% 500 ML 250 MG IV (06:36)
[2025-02-06 08:08] VITALS: BP 143/82; PULSE 95; RESP 16; TEMP 36.2; O2SAT 94
--- NOTE | 2025-02-06 08:31 | DIET.PN1 ---
Dietary Progress Note Assessment: Continued good PO intakes 75-100%, DFM reviewed for meal composition, meeting EER. BG all 180 or <, with just one at 233. Will continue to monitor PO intakes and BG. No nutritional interventions needed at this time. Ht: 177.8 cm Wt: 95 kg BMI: 29.9 Last BM: 02/04/25 (02/04/25 16:05) MNA: 11 Maury Score: 21 Diet: 02/02/25 Dinner Carbohydrate Consistent Diet Diet Modifications: Carbohydrate level: Medium (3 CHO) Reflex DM orders: No Nutrition Percent Meal Consumed 100% 02/06/25 08:24 Percent Meal Consumed 75% 02/05/25 18:00 Percent Meal Consumed 100% 02/05/25 13:00 Percent Meal Consumed 75% 02/04/25 18:00 Percent Meal Consumed 100% 02/04/25 12:51 Labs: RBC 3.65 X10^6/uL (4.5-5.9) L 02/05/25 02:30 Hgb 11.5 g/dL (13.5-17.5) L 02/05/25 02:30 Hct 32.1 % (41-53) L 02/05/25 02:30 Creatinine 0.57 mg/dL (0.66-1.25) L 02/05/25 02:30 Hemoglobin A1c 5.7 % (4.0-6.0) 02/03/25 05:10 Lactate 1.9 mmol/L (0.7-2.1) 02/02/25 12:22 NT-Pro-B Natriuret Pep 2870 pg/mL (<125) H 02/05/25 02:30 Electronically Signed by: Jacquelyn Horn 02/06/25 08:31 Clinical Dietitian [address] [address]
[2025-02-06] MEDS: INSULIN GLARGINE 100 UNIT/ML 3ML PEN 18 UNIT SUBCUT (09:19)
[2025-02-06] MEDS: ENOXAPARIN 40 MG/0.4 ML SYRINGE SUBCUT (09:31)
[2025-02-06] MEDS: TAMSULOSIN 0.4 MG CAPSULE PO (09:31)
--- NOTE | 2025-02-06 09:58 | P.DS_ITS ---
History of Present Illness History of Present Illness Chief complaint: N/V/D for few days,hypotensive Narrative: From H&P: This is a 65-year-old male with diabetes mellitus type 2, hypertension and methamphetamine use who presents with nausea, vomiting, diarrhea, left lower extremity pain and redness. He is also having a dull aching on the left side of his abdomen and numbness in all the fingers of the right hand. He has been confined to bed for 3 days with the weakness and pain. He has also been feeling like he is having fevers and chills. Initial evaluation documents leukocytosis, elevated procalcitonin, cellulitis of the left lower extremity and hyponatremia. The right hand numbness pre dates these acute symptoms, going back about 3 months. Discharge Providers Provider Date of admission: 02/02/25 15:17 Discharge Date: 02/06/25 Primary care physician: LO Hutton Consults: 02/02/25 17:02 Consult to Dietitian, Adult Routine Comment: Reason For Exam: unintentional weight loss, unknown amount. 02/04/25 08:58 Consult to Physical Therapy Evaluate & Treat Comment: Physician Instructions: Evaluate and Treat Discharge provider: Stef Young MD Summary Hospital Course Discharge Diagnosis: 1. Left lower extremity cellulitis, present on admission. Active and improving. -nares MRSA positive. -IV ceftriaxone and vancomycin. 2. Sigmoid Epiploic Appendagitis, present on admission. Active. -CT abdomen/pelvis reviewed. 3. Hyponatremia, present on admission. Improved.. -sodium 128, likely related to poor GI intake due to vomiting and diarrhea. 4. Diabetes mellitus type 2, present on admission. Chronic. -follow blood sugars, continue Lantus and Lispro. 5. Right hand numbness, present on admission. Chronic. -no prior workup -symptoms suspicious for carpal tunnel syndrome, defer to outpatient PCP follow- up. 6. Hypertension, present on admission. Chronic. 7. Methamphetamine and marijuana use, present on admission. Chronic. 8. Urine retention. He declines the falling asked that it be removed and also declines Flomax. 9. Dyspnea and wheezing, given Lasix overnight. ECHO likely normal. Hospital Course: He was treated for cellulitis with good improvement over 3 days. His enough left leg was very red and swollen but did improve substantially. Nares screen was positive positive for MRSA. He will be discharged on MRSA coverage for cellulitis and leg elevation. He states that bladder retention is normal for him and that he declined Márquez catheter or Flomax. He was sodium improved with IV fluids and eating. His blood cultures were negative. Urine culture was positive for Klebsiella which was adequately covered with IV antibiotics while in the hospital. Status at Discharge Cognitive/behavioral status at discharge: oriented Functional status at discharge: independent ambulation Overall status at discharge: patient is back to baseline Time Spent with Patient Time spent: Greater than 30 minutes Exam Vital Signs (past 8 hours): - 02/06/25 04:00 02/06/25 08:08 Temperature 98.6 F 97.1 F L Pulse Rate 94 H 95 H Respiratory Rate 22 16 Blood Pressure 157/84 H 143/82 H Pulse Oximetry 93 94 Oxygen Flow Rate 0 0 Oxygen Delivery Method Room Air Oxygen Flow Rate 0 Narrative Exam Narrative: NAD, alert and oriented. Fluent speech. Lungs are clear, normal rate and effort. Heart is regular, no murmur gallop or rub. Abdomen is soft, non distended. Extremities: Left leg is still somewhat swollen but much less red and warm. Objective ECG Impression: ntervals [place] Rate: 94 P: 44 VA: 144 QRS: -68 QRSD: 112 T: 81 QT: 390 QTc: 487 Interpretive Statements Sinus rhythm with frequent premature ventricular complexes Left anterior fascicular block Inferior infarct , age undetermined Imaging Multiple studies:: Radiologist's impression: Echo: Left ventricular ejection fraction is estimated to be 45 +/- 5%. Inferior hypokinesis. Consider limited study with Definity to better evaluate WMA The right ventricle grossly appears normal in size with probable normal systolic function. There is mild tricuspid regurgitation. The right ventricular systolic pressure is estimated to be at least 65 mmHg based on an estimated right atrial pressure of 8 mm Hg. There is mild to moderate pulmonic regurgitation. There is mild mitral regurgitation. There is no hemodynamically significant valvular aortic stenosis. Knee x-rays: Mild medial compartment osteoarthritis. Chest CTA: Pulmonary arteries: Pulmonary arteries are normal in size, and demonstrate no intraluminal filling defects to suggest central pulmonary embolism. Lower Neck: No enlarged lymph nodes. Thyroid: No thyroid nodules which require sonographic follow up, per consensus guidelines. Axillae: No enlarged lymph nodes. Chest Wall: Unremarkable. Bones: Unremarkable. Lungs and Pleura: No pneumothorax or pleural effusions. No consolidation or suspicious nodules. Heart: Heart size is normal. No pericardial effusion. Thoracic Vessels: No aortic aneurysm. Mediastinum and Flor: No enlarged lymph nodes. Esophagus: No wall thickening. No hiatal hernia. Upper Abdomen: Visualized upper abdomen solid organs and bowel loops appear normal. IMPRESSION: No pulmonary embolus. No acute cardiopulmonary process. Abdomen pelvis CT: FINDINGS: Image quality: Diagnostic. Lower Chest: No significant findings. ABDOMEN: Liver: No solid mass. Gallbladder: No radiopaque gallstones or wall thickening. Biliary ducts: No biliary dilation. Pancreas: No ductal dilation. Spleen: Size is within normal limits. Adrenal Glands: No adrenal nodules. Kidneys and Ureters: No hydronephrosis. No solid mass. No complex renal cystic lesion which requires follow up. Stomach and Bowel: Normal colonic caliber, without significant wall thickening. Peritoneum: No abnormal intraperitoneal fluid. No free air. There is mild mesenteric inflammation along the anti mesenteric border of the sigmoid with an area of fat with a halo of inflammation. Adjacent are several mildly inflamed iliac lymph nodes. Ventral Wall: No significant ventral hernia. Abdominal Nodes: No retroperitoneal or mesenteric adenopathy by size criteria. Vessels: Aorta and inferior vena cava are normal in size. PELVIS: Pelvic Organs: Unremarkable. Bladder: No bladder wall thickening, accounting for underdistention. Pelvic Nodes: No enlarged lymph nodes. Miscellaneous: No inguinal hernias are seen. Bones: No aggressive osseous abnormality. Bilateral YVONNE hardware is present. IMPRESSION: Findings suggestive of sigmoid epiploic appendagitis. Leg ultrasound: No findings of deep venous thrombosis in either lower extremity. Chest x-ray: No acute cardiopulmonary abnormality is seen. Labs 02/05/25 02:30 02/05/25 02:30 Labs: Laboratory Results - last 24 hr 02/05/25 02/05/25 02/05/25 12:01 12:34 17:03 POC Whole Bld Glucose 154 H 233 H Vancomycin Trough 10.9 02/05/25 02/06/25 20:33 07:58 POC Whole Bld Glucose 171 H 117 H Vancomycin Trough [facility] Medical History Methamphetamine use Hemorrhoids Diabetes type 2, uncontrolled Hypertension Surgical History History of hip surgery History of hip replacement Status post knee surgery Family History Father Congestive heart failure Mother Cancer Brother No significant medical problems Social History household members: significant other Smoking Status: Current every day smoker Discharge Assessment & Plan Assessment and Plan Assessment: 1. Left lower extremity cellulitis, present on admission. Active and improving. -nares MRSA positive. Plan of Treatment: Discharge home with doxycycline 100 b.i.d. for 7 additional days, leg elevation is advised to follow up with PCP within the next 5-7 days to reassure ongoing progress. Discharge Plan Discharge Plan Patient Disposition: Home Provider Discharge Comment: Stable for discharge on whom I oral antibiotics. Discharge orders & Medications Prescriptions: New doxycycline hyclate 100 mg capsule 100 mg PO BID Qty: 14 0RF Continued glipizide 10 mg Tablet 10 mg PO BID amlodipine 5 mg Tablet 5 mg PO DAILY insulin glargine 18 units SUBCUT BID lisinopril 40 mg PO DAILY metformin 500 mg tablet 1,000 mg PO BID Follow up/Referrals: Tamiko Silva ARNP [Primary Care Provider, Medical] Diet/Activity/Treatments Diet: Carb-consistent/Diabetic Activity: Left leg elevation Visit Report/Discharge Packet Instructions: DI for Cellulitis -- Adult Stand Alone Forms: Patient Portal/API, Stroke Signs & Symptoms Discharge Data Primary Care Provider: Tamiko Silva
--- NOTE | 2025-02-06 10:26 | PC.NURSE ---
Day shift: Paperwork signed and all questions answered. Pt has all personal belongings. LLE is much improved compared to on admit. Pt going home on oral antibiotics. Left unit via WC at approx 1025. Taken by JOELLEN Coronel. New MD scripts sent to Pt's pharmacy electronic.
== END 2025-02-06 10:28 | disposition home or self-care (01) | DRG 872 ==
LOC: ED 15:03 → AC 15:18
PROVIDERS: Hospitalist; Internal Medicine; Admitting Provider Family Medicine; Emergency Provider Family Medicine; PCP Nurse Practitioner; Referring Provider Family Medicine; Visit Provider Family Medicine
DX: A41.9 Sepsis, unspecified organism (principal); E87.1 Hypo-osmolality and hyponatremia; L03.116 Cellulitis of left lower limb; F15.90 Other stimulant use, unspecified, uncomplicated; F17.200 Nicotine dependence, unspecified, uncomplicated; K63.89 Other specified diseases of intestine; E11.9 Type 2 diabetes mellitus without complications; R20.0 Anesthesia of skin; I10 Essential (primary) hypertension; F12.90 Cannabis use, unspecified, uncomplicated; R33.9 Retention of urine, unspecified; R06.2 Wheezing; R06.00 Dyspnea, unspecified; B95.62 Methicillin resistant Staphylococcus aureus infection as the cause of diseases classified elsewhere; B96.1 Klebsiella pneumoniae [K. pneumoniae] as the cause of diseases classified elsewhere; Z79.84 Long term (current) use of oral hypoglycemic drugs; Z79.4 Long term (current) use of insulin
CPT/HCPCS: 36415; 51798; 71045; 71275; 73562; 74177; 80048; 80053; 80202; 82962; 83036; 83605; 83690; 83735; 83880; 84145; 85025; 85610; 85730; 87040; 87797; 93005; 93306; 93971; 96361; 96365; 96366; 96368; 97116; 97161; 99285; J0696; J1650; J1815; J1938; J2543; J3475; Q9967